=== PATIENT | male | born 1960 | race Caucasian/White ===

== ENCOUNTER 2023-02-09 21:43 | Inpatient (IN) | payer MEDICARE, SELFPAY ==
[2023-02-09] VITALS (7 sets, daily range): BP systolic 128; BP diastolic 71; PULSE 106–116; RESP 20–24; TEMP 36.7–37.2; O2SAT 93–95
--- NOTE | ~2023-02-09 | XR_ITS ---
XR chest 2V 02/09/2023 23:17 Indication: Cough and shortness of breath Procedure: 2 view chest Comparison: 10/28/2006 Findings: There is chronic granulomatous disease. Heart size normal. Mediastinal contour stable. No f ocal air space disease, pulmonary edema, pleural effusion or suspected pneumothorax. Impression: 1: No acute cardiopulmonary disease. Reviewed, dictated and finalized at location A. Impression: 1: No acute cardiopulmonary disease.
--- NOTE | ~2023-02-09 | CT_ITS ---
EXAMINATION: CT brain wo con DATE: 02/10/2023 00:55 INDICATION: Status post fall. Syncope. TECHNIQUE: Computed tomography (CT) of the head was performed without intravenous contrast. The dose- length product was 605.33 mGy-cm. Automated exposure control and iterative reconstruction technique w ere employed. COMPARISON: CT dated 10/28/2006 FINDINGS: Mild generalized atrophy. Focal left frontal scalp hematoma. There are scattered mild periv entricular and subcortical white matter changes, most likely related to small vessel ischemic disease (microangiopathy). No acute intracranial hemorrhage, infarction, mass or mass effect. No ventriculom egaly or midline shift. There is mucosal thickening of the maxillary, ethmoid, frontal and sphenoid s inuses. Mastoids are pneumatized. Chronic fracture left lamina papyracea. IMPRESSION: 1. No acute intracranial abnormality. 2: Chronic sinus disease. Reviewed, dictated and finalized at location A.
--- NOTE | 2023-02-09 21:54 | ED.SYNCOPE ---
HPI - Syncope General Chief Complaint: Syncope Stated Complaint: syncope Time Seen by Provider: 02/09/23 21:47 History of Present Illness HPI narrative: Patient is a 63-year-old male presenting with syncope. Patient states that for the last week he has had a productive cough associated with shortness of breath and intermittent chest pressure. States the chest pressure is random. Not exertional. He was seen in urgent care couple of days ago and started on steroids, antibiotics, inhaler. States that it has not really helped. States that he has had episodes of passing out for the last 6 months. He is supposed to see neurology but he has not yet received a call from them. States that tonight he had a coughing fit and then he passed out so his called an ambulance. He denies headaches, fevers, numbness or weakness, abdominal pain, vomiting, diarrhea, dysuria, leg swelling. Related Data Home Medications Medication Instructions Recorded Confirmed albuterol sulfate 90 mcg/actuation 2 inh inhalation Q4H PRN Wheezing 02/10/23 02/10/23 aerosol inhaler benzonatate 100 mg capsule 100 mg PO TID 02/10/23 02/10/23 celecoxib 200 mg capsule 200 mg PO DAILY 02/10/23 02/10/23 duloxetine 30 mg capsule,delayed 30 mg PO DAILY 02/10/23 02/10/23 release ezetimibe 10 mg tablet 10 mg PO DAILY 02/10/23 02/10/23 lansoprazole 30 mg capsule,delayed 30 mg PO DAILY 02/10/23 02/10/23 release lisinopril 5 mg tablet 5 mg PO DAILY 02/10/23 02/10/23 metoprolol tartrate 25 mg tablet 12.5 mg PO BID 02/10/23 02/10/23 prednisone 20 mg tablet 40 mg PO DAILY 02/10/23 02/10/23 rosuvastatin 40 mg tablet 40 mg PO HS 02/10/23 02/10/23 Allergies Allergy/AdvReac Type Severity Reaction Status Date / Time Penicillins Allergy Unknown Verified 07/04/21 15:40 Review of Systems Review of Systems: All systems reviewed & are unremarkable except as noted in HPI and below PMFSH Past Medical History Medical History COPD (chronic obstructive pulmonary disease) Nicotine dependence, cigarettes, with other nicotine-induced disorders Personal history of noncompliance with medical treatment and regimen Recurrent syncope Tobacco abuse counseling Family History Family History Mother Family history of arthritis Social History Social History Smoking packs per day: 0.5 Smoking cigarettes per day: 10.0 Smoking status: Light tobacco smoker Second hand tobacco smoke exposure: No Alcohol intake: current Substance use: former Substance use type: marijuana Lack of Transportation: No Lack of Food: Never True Current Housing: I Have Housing Concerned About Future Housing: No Difficulty Paying Gas/Electric Bills: No Difficulty Paying for Meds: No Currently Unemployed: No Education: Trade/Vocational Certificate Difficulty w/ Childcare or Family Care: No Spiritual care concerns: No Exam Narrative: GENERAL: Well-appearing and in no acute distress. Pleasant and cooperative HEAD: Normocephalic, atraumatic. EYES: PERRLA and EOMI. ENT: Grossly unremarkable NECK: Supple. CHEST: No respiratory distress, scattered wheezing; + coughing during exam HEART: Tachycardic, regular rhythm ABDOMEN: Soft, nontender, nondistended EXTREMITIES: Normal range of motion. No edema. SKIN: Warm, dry, no rash. NEURO: No focal deficits. Alert and oriented x3. PSYCH: Normal mood and affect. Course Vital Signs Vital signs: Vital Signs Pulse Rate 114 H 02/09/23 21:45 Respiratory Rate 20 02/09/23 21:45 Blood Pressure 128/71 02/09/23 21:45 Pulse Oximetry 93 02/09/23 21:45 Oxygen Delivery Room Air 02/09/23 21:45 Temperature 96.1 F L 02/12/23 07:33 Pulse Rate 81 02/12/23 09:45 Respiratory Rate 20 02/12/23 07:33 Blood Pressure 147/99 H 02/12/23 07:33 Pulse O
[2023-02-09 22:22] LABS: Basophils Percent Auto 0.6 % (0.2-1.2); Hemoglobin 13.7 g/dL (14.0-18.0); Immature Granulocyte Absolute 0.06 K/mm3 (0.00-0.031); Immature Granulocyte Percent A 0.8 % (0-0.5); Lymphocytes Percent Auto 16.5 % (18.3-44.2); Mean Corpuscular HGB Conc 33.4 g/dl (32-36); Mean Corpuscular Hemoglobin 32.1 pg (26-34); Mean Platelet Volume 10.6 fl (7.4-10.4); Monocytes Absolute Auto 0.5 K/mm3 (0.1-0.6); Neutrophils Absolute Auto 5.5 K/mm3 (1.3-6.7); Neutrophils Percent Auto 75.1 % (45.5-73.1); Platelet Count Result 175 k/mm3 (150-375); Red Blood Count 4.27 M/mm3 (4.6-6.20); Red Cell Distribution Width 13.2 % (11.5-14.5); White Blood Count 7.3 K/mm3 (4.5-10.0)
[2023-02-09 22:33] LABS: Alanine Aminotransferase 26 U/L (6-50); Albumin Level 4.1 g/dL (3.5-5.1); Alkaline Phosphatase 75 U/L (38-126); Anion Gap 13 mmol/L (8-16); Aspartate Amino Transferase 42 U/L (17-59); Bilirubin,Total 0.4 mg/dL (0.2-1.3); Blood Urea Nitrogen 20 mg/dL (9-20); Calcium 8.8 mg/dL (8.4-10.2); Carbon Dioxide 20 mmol/L (22-30); Chloride 97 mmol/L (98-107); Estimated CRCL calculation 90 ml/min; Estimated Glomerular Filt Rate > 60; Glucose 189 mg/dL (65-110); Sodium 130 mmol/L (137-145)
--- NOTE | 2023-02-09 23:19 | PC.NURSE ---
pt care and report given to ADRIEN Mei. all questions answered.
[2023-02-09 23:35] LABS: INR 0.9; Prothrombin Time 12.9 Seconds (11.1-14.7)
[2023-02-09 23:36] LABS: Lipase 161 U/L (23-300)
[2023-02-09 23:36] LABS: Partial Thromboplastin Time 31.4 SECONDS (22.3-36.8)
[2023-02-09] MEDS: SODIUM CHLORIDE 0.9% IV 1,000 ML 999 ML IV CONT (23:36)
[2023-02-09 23:49] LABS: Troponin I < 0.012 ng/mL (0.000-0.034)
[2023-02-10] VITALS (26 sets, daily range): BP systolic 123–154; BP diastolic 57–77; PULSE 75–114; RESP 16–26; TEMP 36.7–37.2; O2SAT 91–97; BMI 34.2
--- NOTE | 2023-02-10 | ECG_ITS ---
Measurements Intervals [place] Rate: 110 P: [place]: 0 QRS: 52 QRSD: 91 T: 66 QT: 328 QTc: 445 Interpretive Statements SINUS TACHYCARDIA ABNORMAL ECG NO PREVIOUS ECG AVAILABLE FOR COMPARISON Electronically Signed On 02-10-2023 7:09:44 CDT by Jatin Kinney D.O.
[2023-02-10] MEDS: IPRATROPIUM BR 0.02% INH SOLN 0.5 MG/2.5 ML VIAL INHALATION (00:21)
[2023-02-10] MEDS: ALBUTEROL SULFATE NEB 2.5 MG/3 ML INH 5 MG INHALATION (00:21)
[2023-02-10 00:55] LABS: Influenza A QL RT-PCR Negative (Negative); Influenza B QL RT-PCR Negative (Negative); SARS-CoV-2 RNA PCR Negative (Negative)
[2023-02-10] MEDS: SODIUM CHLORIDE 0.9% IV 1,000 ML 999 ML IV CONT (01:35)
[2023-02-10] MEDS: methylPREDNISolone SOD SUCC 125 MG VIAL IV PUSH (01:35)
--- NOTE | 2023-02-10 01:45 | PM.IMHP ---
H&P: HPI History of Present Illness Date/Time: 02/10/23 01:45 Chief Complaint: Patient was brought to the ER for evaluation by EMS with complaints of recurrent syncopal episodes and productive cough Narrative: 63 years old white male is complaining of multiple episodes of syncope for the last 6 months. He was worked up with a carotid ultrasound which was negative. He was advised to go and see a neurologist which he has not done yet. He is complaining of productive cough for last 5 days with shortness of breath which is slowly worsening. Today he had intermittent chest pressure as well, Intensity 2 to 3/10, no radiation and no association with exertional activities. He was seen in urgent care couple days ago and was started on steroids, antibiotics and inhaler which has not really helped him. He had 2 episodes of passing out at homein the last couple of days. In one episode, he fell on the face and had facial bruising. He is a very stubborn anastasiya and did not want to come to the ER until called EMS who brought him here. Workup was done which showed pneumonia. He is a chronic daily smoker. He has been started on breathing treatments, IV antibiotics and is being admitted for close monitoring and further workup for his syncopal episodes. Review of Systems Review of Systems: He denies any loss of consciousness, abdominal pain, nausea vomiting or blurred vision All systems reviewed & are unremarkable except as noted in HPI and below PMFSH Past Medical History Medical History (Updated 02/10/23 @ 01:57 by Jonathon Liu MD) COPD (chronic obstructive pulmonary disease) Nicotine dependence, cigarettes, with other nicotine-induced disorders Personal history of noncompliance with medical treatment and regimen Recurrent syncope Tobacco abuse counseling Family History Family History Mother Family history of arthritis Social History Social History Smoking status: Current every day smoker Alcohol intake: current Meds Home Medications and Allergies Allergies Allergy/AdvReac Type Severity Reaction Status Date / Time Penicillins Allergy Unknown Verified 07/04/21 15:40 Vital Signs Vital Signs - 24 hr 02/09/23 21:45 02/09/23 21:45 02/09/23 21:56 Temperature 36.7 C Pulse Rate 114 H 116 H Respiratory Rate 20 Blood Pressure 128/71 Pulse Oximetry 93 93 Oxygen Delivery Room Air Room Air 02/09/23 22:09 02/10/23 00:24 Temperature 37.2 C Pulse Rate 114 H 104 H Respiratory Rate 20 17 Blood Pressure Pulse Oximetry 93 Oxygen Delivery Exam Narrative: PHYSICAL EXAMINATION: Vital signs: Please see the chart General physical exam: obese male lying in bed in the ER, appears tired and fatigued, well-nourished Head/eyes: Atraumatic, EOMI, PERRLA ENT: Moist mucous membranes, nasal passages clear Neck: Supple, full range of motion, trachea midline CVS: S1 + S2, regular rate and rhythm, no murmurs Respiratory: Bilaterally decreased air entry in both lung salazar, mild B/L crackles, + right lower lobe ronchi Abdomen: Soft, non-tender, bowel sounds +ve, no organomegaly Extremities: No clubbing, no cyanosis, no edema, no calf tenderness Musculoskeletal: Moves all, adequate range of motion, no muscle spasms Skin: Warm, dry, no jaundice, no cyanosis Neurological: Awake, alert, oriented x 3, cranial nerves II-XII intact, no focal neurological deficits Psychiatric: Normal mood, non suicidal H&P: Results Labs Labs: Short CBC 02/09/23 Range/Units 22:06 WBC 7.3 (4.5-10.0) K/mm3 Hgb 13.7 L (14.0-18.0) g/dL Hct 41.0 L (42.0-52.0) % Plt Count 175 (150-375) k/mm3 BMP 02/09/23 22:06 Sodium 130 L Potassium 4.0 Chloride 97 L Carbon Dioxide 20 L BUN 20 Creatinine 0.90 Glucose 189 H Calcium 8.8 Cardiac Enzymes 02/09/23 Range/Units 22:06 Troponin I < 0.
[2023-02-10] MEDS: cefTRIAXone 2 GM/NS 100 ML 2 GM/100 ML BAG IVPB (01:53)
[2023-02-10 02:26] LABS: Troponin I < 0.012 ng/mL (0.000-0.034)
[2023-02-10] MEDS: AZITHROMYCIN 500 MG/NS 250 ML 500 MG/250 ML BAG 250 MG IVPB (02:46)
--- NOTE | 2023-02-10 03:08 | ADMGEN ---
This patient, Dann Garcia, was admitted to 3 [facility] Surg Room 300-01. Patient/family oriented to hospital policies and general routines including ID bracelet, bed and alarms, visiting hours, pain management, procedures, bathroom and other care routines, personal items, smoking policy, room service/diet, and visiting hours. Information on how to activate the Rapid Response Team has been discussed. Patient/Family are encouraged to report perceived risks to care and to ask questions if they do not understand what they are told or what they should do.
[2023-02-10] MEDS: SODIUM CHLORIDE 0.9% IV 1,000 ML 100 ML IV CONT (03:33)
[2023-02-10] MEDS: methylPREDNISolone SOD SUCC 125 MG VIAL 60 MG IV PUSH ×3 (05:06→21:53)
[2023-02-10 06:37] LABS: Basophils Percent Auto 0.4 % (0.2-1.2); Hematocrit 43.1 % (42.0-52.0); Hemoglobin 14.1 g/dL (14.0-18.0); Immature Granulocyte Absolute 0.14 K/mm3 (0.00-0.031); Immature Granulocyte Percent A 2.5 % (0-0.5); Lymphocytes Absolute Auto 0.89 K/mm3 (0.9-3.2); Lymphocytes Percent Auto 16.1 % (18.3-44.2); Mean Corpuscular HGB Conc 32.7 g/dl (32-36); Mean Corpuscular Hemoglobin 31.7 pg (26-34); Mean Corpuscular Volume 96.9 fl (80-100); Monocytes Absolute Auto 0.2 K/mm3 (0.1-0.6); Monocytes Percent Auto 3.6 % (2.6-8.5); Neutrophils Absolute Auto 4.3 K/mm3 (1.3-6.7); Neutrophils Percent Auto 77.4 % (45.5-73.1); Platelet Count Result 156 k/mm3 (150-375); Red Blood Count 4.45 M/mm3 (4.6-6.20); Red Cell Distribution Width 13.2 % (11.5-14.5); White Blood Count 5.5 K/mm3 (4.5-10.0)
[2023-02-10 06:48] LABS: Anion Gap 8 mmol/L (8-16); Blood Urea Nitrogen 17 mg/dL (9-20); Calcium 8.7 mg/dL (8.4-10.2); Carbon Dioxide 23 mmol/L (22-30); Chloride 104 mmol/L (98-107); Estimated CRCL calculation 134 ml/min; Estimated Glomerular Filt Rate > 60; Glucose 210 mg/dL (65-110); Magnesium 1.9 mg/dL (1.6-2.3); Phosphorus 2.5 mg/dL (2.5-4.5); Potassium 4.2 mmol/L (3.4-5.0); Sodium 135 mmol/L (137-145)
[2023-02-10] MEDS: BENZONATATE 100 MG CAPSULE PO ×3 (09:01→16:26)
[2023-02-10] MEDS: CELECOXIB 200 MG CAPSULE PO (09:02)
[2023-02-10] MEDS: DOXYCYCLINE HYCLATE 100 MG TABLET PO ×2 (09:02→20:14)
[2023-02-10] MEDS: lisinopriL 5 MG TABLET PO (09:02)
[2023-02-10] MEDS: predniSONE 20 MG TABLET 40 MG PO (09:02)
[2023-02-10] MEDS: METOPROLOL TARTRATE 12.5 MG TABLET PO ×2 (09:02→16:26)
[2023-02-10] MEDS: EZETIMIBE 10 MG TABLET PO (09:03)
[2023-02-10] MEDS: DULoxetine HCL 30 MG CAPSULE.DR PO (09:03)
[2023-02-10] MEDS: LANSOPRAZOLE ORAL SUSP 30 MG/10 ML ORAL.SUSP PO (09:04)
[2023-02-10] MEDS: ROSUVASTATIN 10 MG TABLET 40 MG PO (20:14)
[2023-02-10] MEDS: LORazepam INJ (*CRX) 2 MG/ML VIAL 1 MG IV PUSH (20:14)
[2023-02-10] MEDS: ACETAMINOPHEN 325 MG TABLET 650 MG PO (20:14)
[2023-02-11] VITALS (11 sets, daily range): BP systolic 135–157; BP diastolic 75–90; PULSE 83–105; RESP 18; TEMP 36.5–36.8; O2SAT 94–98
[2023-02-11 00:49] LABS: Glucose Point of Care 204 mg/dl (65-105)
[2023-02-11 05:43] LABS: Glucose Point of Care 224 mg/dl (65-105)
[2023-02-11] MEDS: methylPREDNISolone SOD SUCC 125 MG VIAL 60 MG IV PUSH ×3 (05:54→21:23)
--- NOTE | 2023-02-11 06:00 | ECHO_ITS ---
Patient Info Name: Dann Garcia Age: 63 years : 1960 Gender: Male Ht: 70 in Wt: 238 lbs BSA: 2.35 m2 HR: 81 bpm BP: 115 / 66 mmHg Heart Rhythm: Sinus Rhythm Technical Quality: Fair Exam Date: 02/11/2023 11:33 AM Exam Location: [facility] Pulmonary Exam Room: 300 Patient Status: Inpatient Admit Date: 02/10/2023 Staff Ordering Physician: Diana Conte MD Research Instrumentation Technician: Indira Carranza RDCS Attending Provider: Jonathon Liu MD Referring Physician: Hector GONZALEZ Exam Type: CA echo dop color flow w con Study Info Indications - syncope Complete two-dimensional, color flow and Doppler transthoracic echocardiogram is performed with contrast to opacify the left ventricle and to improve the deliniation of the left ventricle endocardial borders. Contrast/Agitated Saline Contrast/Ag. Saline: Definity Amount: 2.00 ml Administered By: Indira Carranza [facility] [[email or web address]] Existing IV Access: Yes IV Access Condition: patent with no signs of infiltration Summary 1. Technically difficult study with limited views. Definity contrast administered. 2. Left ventricular chamber dimension is normal. 3. Left ventricular systolic function is normal, estimated at 65-70%. 4. There is mildly increased left ventricular wall thickness. 5. The left ventricular diastolic function is grade I diastolic dysfunction. 6. Atrial septal aneurysmal motion. 7. There is no aortic valve stenosis. 8. There is trace tricuspid valve regurgitation. 9. No pulmonary hypertension, estimated pulmonary arterial systolic pressure is 30 mmHg. Left Ventricle Left ventricular chamber dimension is normal. Left ventricular systolic function is normal, estimated at 65-70%. There is mildly increased left ventricular wall thickness. The left ventricular diastolic function is grade I diastolic dysfunction. Technically difficult study with limited views. Definity contrast administered. Right Ventricle Right ventricular chamber dimension is normal. Right ventricular systolic function is normal. Left Atria Left atrial chamber dimension is normal. Right Atria Right atrial chamber dimension is mildly enlarged. Atrial Septum Atrial septal aneurysmal motion. Aortic Valve The aortic valve is not well visualized. There is no aortic valve stenosis. There is no aortic valve regurgitation. Pulmonic Valve The pulmonic valve is not well visualized. Mitral Valve The mitral valve has normal leaflets. There is no mitral valve regurgitation. The mitral valve annulus is mildly calcified. Tricuspid Valve The tricuspid valve leaflets are normal. There is trace tricuspid valve regurgitation. No pulmonary hypertension, estimated pulmonary arterial systolic pressure is 30 mmHg. Pericardium/Pleural The pericardium appears epicardial fat pad. There is no pericardial effusion. Inferior Vena Cava Normal inferior vena cava with >50% collapse upon inspiration consistent with normal right atrial pressure, 5 mmHg. Aorta The aortic root size at the sinus of Valsalva is normal. There is mild aortic atherosclerosis. Left Ventricular Outflow Tract Name Value Normal LVOT 2D LVOT Diameter 2.12 cm LVOT Doppler
[2023-02-11 06:50] LABS: Basophils Percent Auto 0.4 % (0.2-1.2); Hematocrit 41.8 % (42.0-52.0); Hemoglobin 14.2 g/dL (14.0-18.0); Immature Granulocyte Percent A 1.8 % (0-0.5); Lymphocytes Absolute Auto 1.39 K/mm3 (0.9-3.2); Lymphocytes Percent Auto 12.6 % (18.3-44.2); Mean Corpuscular Hemoglobin 32.1 pg (26-34); Mean Corpuscular Volume 94.4 fl (80-100); Mean Platelet Volume 10.2 fl (7.4-10.4); Monocytes Absolute Auto 0.7 K/mm3 (0.1-0.6); Monocytes Percent Auto 6.2 % (2.6-8.5); Neutrophils Absolute Auto 8.7 K/mm3 (1.3-6.7); Platelet Count Result 179 k/mm3 (150-375); Red Blood Count 4.43 M/mm3 (4.6-6.20); Red Cell Distribution Width 12.8 % (11.5-14.5); White Blood Count 11.1 K/mm3 (4.5-10.0)
[2023-02-11 07:07] LABS: Anion Gap 7 mmol/L (8-16); Blood Urea Nitrogen 18 mg/dL (9-20); Calcium 8.8 mg/dL (8.4-10.2); Carbon Dioxide 30 mmol/L (22-30); Chloride 98 mmol/L (98-107); Estimated CRCL calculation 134 ml/min; Estimated Glomerular Filt Rate > 60; Glucose 207 mg/dL (65-110); Magnesium 1.8 mg/dL (1.6-2.3); Phosphorus 3.4 mg/dL (2.5-4.5); Potassium 3.7 mmol/L (3.4-5.0); Sodium 135 mmol/L (137-145)
[2023-02-11] MEDS: predniSONE 20 MG TABLET 40 MG PO (08:51)
[2023-02-11] MEDS: chlordiazePOXIDE (*CRX) 25 MG CAPSULE PO (08:51)
[2023-02-11] MEDS: lisinopriL 5 MG TABLET PO (08:51)
[2023-02-11] MEDS: METOPROLOL TARTRATE 12.5 MG TABLET PO ×2 (08:51→16:52)
[2023-02-11] MEDS: LANSOPRAZOLE ORAL SUSP 30 MG/10 ML ORAL.SUSP PO (08:51)
[2023-02-11] MEDS: CELECOXIB 200 MG CAPSULE PO (08:51)
[2023-02-11] MEDS: BENZONATATE 100 MG CAPSULE PO ×3 (08:51→16:47)
[2023-02-11] MEDS: DULoxetine HCL 30 MG CAPSULE.DR PO (08:51)
[2023-02-11] MEDS: DOXYCYCLINE HYCLATE 100 MG TABLET PO ×2 (08:51→20:11)
[2023-02-11] MEDS: EZETIMIBE 10 MG TABLET PO (08:51)
[2023-02-11] MEDS: AZITHROMYCIN 500 MG/NS 250 ML 500 MG/250 ML BAG 250 MG IVPB (08:53)
[2023-02-11 11:25] LABS: Glucose Point of Care 392 mg/dl (65-105)
--- NOTE | 2023-02-11 11:56 | PM.IMPN ---
Progress Note: A&P Assessment and Plan (1) Nicotine dependence, cigarettes, with other nicotine-induced disorders: Code(s): F17.218 - Nicotine dependence, cigarettes, with other nicotine-induced disorders Status: Acute (2) Tobacco abuse counseling: Code(s): Z71.6 - Tobacco abuse counseling Status: Acute (3) Personal history of noncompliance with medical treatment and regimen: Code(s): Z91.199 - Patient's noncompliance with other medical treatment and regimen due to unspecified reason Status: Acute (4) COPD (chronic obstructive pulmonary disease): Code(s): J44.9 - Chronic obstructive pulmonary disease, unspecified Status: Acute (5) Pneumonia: Code(s): J18.9 - Pneumonia, unspecified organism Status: Acute (6) Recurrent syncope: Code(s): R55 - Syncope and collapse Status: Acute Plan Admit patient to a medical unit under full inpatient status Oxygen via nasal cannula ordered to keep O2 sats more than 92% Solu-Medrol 125 mg IV x 1 dose given in the ER Solu-Medrol 60 Mg IV q8 hrs started on the floor to be tapered as per clinical response Chest x-ray was done which showed finding consistent with right lower lobe pneumonia Patient given IV Rocephin and azithromycin in the ED which will continue on the floor Sputum cultures ordered Follow-up on blood and sputum cultures DuoNeb breathing treatments ordered as needed He has recurrent syncopal episode for the last 6 months, which are getting worse Continuous cardiac tele-monitoring Monitor cardiac enzymes ?3 2-D echo ordered in the morning to evaluate cardiac structure and function Patient claims he had bilateral carotid artery duplex in an outside facility which has been normal Release bilateral carotid arterial duplex results Heart healthy diet Cardiology consultation in am for evaluation and further treatment recommendations regarding his recurrent syncopal episodes Ambulate on the floor with assistance DC planning once patient is medically stable, breathing is back to baseline and his syncope workup is complete Dependence on nicotine from cigarettes: Tobacco abuse counseling: Patient smokes cigarettes on a chronic basis. Strictly advised patient to cut down on or quit smoking. Nicotine patch ordered. ~5 minutes spent on tobacco cessation counseling with the patient. Websites - http://smokefree.gov & http://www.quitnet.com ? Quitlines - 9-540-OIBL-NOW ( ) ? Smokefree Apps - AdsNative [place]alle ? Text Messages - SmokefreeTXT ([place] [id number]) Personal history of noncompliance with medical treatment and regimen: STRICTLY advised patient to be compliant with meds and medical recommendations. Advised patient to get established with a PCP upon discharge, take care of meds, diet and bring patient's life back on track. ? Patient seen and examined at bedside ? Collaborated with patient's nurse at the bedside in detail and addressed all concerns ? Labs, electrolytes, radiology, investigations and test results reviewed ? ED/Consult/Nursing/Ancilliary notes on the chart reviewed and appreciated ? Spoke with patient/family at the bedside and answered all the questions that they had Continue with home meds. Monitor patient closely while admitted. Patient needs close follow up with PCP/specialists as an outpatient to address chronic medical issues. Repeat labs in a.m. Electrolyte replacement as per protocol. Patient will be monitored very closely on the floor. Further recommendations as per the hospital course. Patient's medical management will be taken over by our hospitalist team in a.m. Subjective Date/time seen: 02/11/23 11:56 Interval history: still complaining of cough Exam Narrative: PHYSICAL EXAMINATION: Vital signs: Please see the chart General physical exam: obese male lying in bed in the ER, appears tired and fatigued, well-nourished Head/eyes: Atraumatic, EOMI, PERRLA
[2023-02-11] MEDS: PERFLUTREN LIPID MICROSPHERES 1.5 ML VIAL DILUTED TO 10 ML TOTAL VOLUME IV PUSH (12:10)
--- NOTE | 2023-02-11 12:28 | IVDEFINITY ---
Prior to administration of IV Definity the patient was educated on the risks and benefits of the imaging enhancing agent including potential adverse side effects. The patient verbalized understanding. Allergies were verified. No exclusion criteria were identified and at least one of the following inclusion criteria were met: 1) physician request, 2) patient technically difficult to image (per the [place] [employer] Echocardi[employer] guidelines of two or more segments not discernable within the apical view), or 3) questionable left ventricular function. ?
[2023-02-11] MEDS: INSULIN ASPART (*BKC) 100 UNITS/ML SUB-Q ×2 (12:29→18:06)
[2023-02-11] MEDS: CODEINE SULFATE (*CRX) 30 MG TABLET PO (12:32)
--- NOTE | 2023-02-11 13:45 | PM.CNCAR ---
Assessment and Plan Assessment and plan (1) Tussive syncope: Code(s): R55 - Syncope and collapse; R05.4 - Cough syncope Status: Acute Assessment and Plan: Patient presents with recurrent episodes of loss of consciousness in setting of intense paroxysm of coughing consistent with tussive syncope. Patient also reports extended history of positional dizziness and near syncope and states he was previously told he had orthostatic hypotension. He was evaluated previously by division operations manager at [facility] and workup at that time he states was otherwise unrevealing. In fact, he states he had never passed out until recently and only with intense coughing. Near syncopal episodes and or severe dizziness were associated with either position change rising from seated position or bending over working outside in the yd. He notes occasional associated shortness of breath but no chest pain or palpitations per se. Patient also as he had episodes where it felt like he might pass out with intense coughing in lying in bed in hospital. Telemetry reveals significant baseline artifact but underlying sinus rhythm without prolonged pauses, high-grade AV blocks identified thus far. We discussed the issues surrounding tussive syncope, general treatment plan, further evaluation and associated risks. We discussed the general consensus mechanism including vasodepressor/cardioinhibitory response I can be seen with intense cough. Patient clinically fits a common pattern overweight middle-aged male with larger body habitus, probable underlying COPD, with intense cough. We discussed the primary goal is to suppress his cough untreated underlying contributors. However, it would be important to exclude other contributions such is pathologic pauses, high-grade AV block or symptomatic bradycardia as underlying predisposition. Therefore, I have recommended 30 day monitoring tech upon discharge for further clarification in this regard. 2D echocardiogram to assess LV function, valve pathology pulmonary pressures. We also need to check orthostatic vital signs. In addition, precautions ambulation, rising slowly from seated position, lower extremity compression stockings, abdominal binder may also be beneficial particularly of orthostasis is identified. If significant symptomatic orthostatic hypotension as identified further medication adjustment be warranted which may include midodrine. However, I do not feel this is likely warranted given the clinical circumstances. All questions answered to his satisfaction. Patient verbalized understanding and agreed with plan of care. Echocardiogram personally reviewed. Preserved LV function no significant valve pathology or clinical evidence for outflow tract obstruction as explanation for contribution to patient's presentation. (2) Pneumonia: Qualifiers: Pneumonia type: due to unspecified organism Code(s): J18.9 - Pneumonia, unspecified organism Status: Acute Assessment and Plan: Patient is being treated for community-acquired pneumonia with IV ceftriaxone and azithromycin. Patient is clinically improving somewhat, slight decrease in cough. Continue supportive care with cough suppressants, steroids and bronchodilator therapy as warranted. Will defer further management to primary service. Clearly, this is contribute to increasing risk for cough as well as the associated intensity resulting in tussive syncope as above. We also discussed the risk of ongoing cough associated syncope with tobacco use and the need to quit. (3) Hypertension: Code(s): I10 - Essential (primary) hypertension Status: Acute Assessment and Plan: BP stable, mildly hypertensive at presentation. Continue lisinopril 5 mg daily, metoprolol tartrate 12.5 mg twice daily. Check orthostatic vital signs lying, sitting, standing in addition to heart rate response. Continue to monitor. (4) COPD (chronic o
[2023-02-11 17:55] LABS: Glucose Point of Care 231 mg/dl (65-105)
[2023-02-11] MEDS: ROSUVASTATIN 10 MG TABLET 40 MG PO (20:12)
[2023-02-11] MEDS: diphenhydrAMINE HCl CAP 25 MG CAPSULE PO (21:23)
[2023-02-11] MEDS: ACETAMINOPHEN 325 MG TABLET PO (21:23)
[2023-02-12] VITALS: BP 129/79; PULSE 86; RESP 18; TEMP 36.7; O2SAT 96
[2023-02-12 04:00] VITALS: BP 159/97; PULSE 81; PULSE 91; RESP 18; TEMP 36.8; O2SAT 100
[2023-02-12] MEDS: methylPREDNISolone SOD SUCC 125 MG VIAL 60 MG IV PUSH (05:36)
[2023-02-12 06:19] LABS: Basophils Absolute Auto 0.1 K/mm3 (0.0-0.1); Basophils Percent Auto 0.6 % (0.2-1.2); Hematocrit 48.9 % (42.0-52.0); Immature Granulocyte Absolute 0.57 K/mm3 (0.00-0.031); Immature Granulocyte Percent A 5.3 % (0-0.5); Lymphocytes Absolute Auto 1.81 K/mm3 (0.9-3.2); Lymphocytes Percent Auto 16.9 % (18.3-44.2); Mean Corpuscular HGB Conc 32.7 g/dl (32-36); Mean Corpuscular Hemoglobin 31.8 pg (26-34); Mean Corpuscular Volume 97.2 fl (80-100); Mean Platelet Volume 9.9 fl (7.4-10.4); Monocytes Absolute Auto 0.7 K/mm3 (0.1-0.6); Monocytes Percent Auto 6.2 % (2.6-8.5); Neutrophils Absolute Auto 7.6 K/mm3 (1.3-6.7); Platelet Count Result 200 k/mm3 (150-375); Red Blood Count 5.03 M/mm3 (4.6-6.20); Red Cell Distribution Width 13.1 % (11.5-14.5); White Blood Count 10.7 K/mm3 (4.5-10.0)
[2023-02-12 06:40] LABS: Anion Gap 5 mmol/L (8-16); Blood Urea Nitrogen 19 mg/dL (9-20); Calcium 9.4 mg/dL (8.4-10.2); Carbon Dioxide 37 mmol/L (22-30); Chloride 96 mmol/L (98-107); Estimated CRCL calculation 116 ml/min; Estimated Glomerular Filt Rate > 60; Glucose 201 mg/dL (65-110); Magnesium 2.3 mg/dL (1.6-2.3); Phosphorus 4.5 mg/dL (2.5-4.5); Potassium 4.3 mmol/L (3.4-5.0); Sodium 138 mmol/L (137-145)
[2023-02-12 07:33] VITALS: BP 147/99; PULSE 85; RESP 20; TEMP 35.6; O2SAT 97
[2023-02-12] MEDS: ENOXAPARIN 40 MG/0.4 ML SYRINGE SUB-Q (09:31)
[2023-02-12] MEDS: predniSONE 20 MG TABLET 40 MG PO (09:33)
[2023-02-12] MEDS: EZETIMIBE 10 MG TABLET PO (09:33)
[2023-02-12] MEDS: BENZONATATE 100 MG CAPSULE PO (09:33)
[2023-02-12] MEDS: NEOMYCIN/POLYMYXIN/BACITRACIN OINTMENT 15 GM TUBE 1 APPLIC TOPICAL (09:33)
[2023-02-12] MEDS: DULoxetine HCL 30 MG CAPSULE.DR PO (09:33)
[2023-02-12 09:34] VITALS: PULSE 84
[2023-02-12] MEDS: METOPROLOL TARTRATE 12.5 MG TABLET PO (09:34)
[2023-02-12] MEDS: lisinopriL 5 MG TABLET PO (09:34)
[2023-02-12] MEDS: CELECOXIB 200 MG CAPSULE PO (09:34)
[2023-02-12] MEDS: DOXYCYCLINE HYCLATE 100 MG TABLET PO (09:34)
[2023-02-12 09:45] VITALS: PULSE 81
--- NOTE | 2023-02-12 10:45 | PM.DS ---
DS: Admitting Diagnosis Discharge Date February 12, 2023 Admitting Diagnosis COPD, cough DS: Discharge Diagnosis Discharge Diagnosis (1) Nicotine dependence, cigarettes, with other nicotine-induced disorders: Code(s): F17.218 - Nicotine dependence, cigarettes, with other nicotine-induced disorders Status: Acute (2) Tobacco abuse counseling: Code(s): Z71.6 - Tobacco abuse counseling Status: Acute (3) Personal history of noncompliance with medical treatment and regimen: Code(s): Z91.199 - Patient's noncompliance with other medical treatment and regimen due to unspecified reason Status: Acute (4) COPD (chronic obstructive pulmonary disease): Code(s): J44.9 - Chronic obstructive pulmonary disease, unspecified Status: Acute (5) Pneumonia: Qualifiers: Pneumonia type: due to unspecified organism Code(s): J18.9 - Pneumonia, unspecified organism Status: Acute (6) Recurrent syncope: Code(s): R55 - Syncope and collapse Status: Acute DS: Summary Hospital Course Hospital Course: 63-year-old chronic smoking male came in with recurrent syncope secondary to coughing episodes. He was admitted for pneumonia and COPD exacerbation. After 2 or 3 days of treatment he did exceptionally well. He is off all oxygen and is breathing fine and not having any coughing episodes. No syncopal episodes. He is doing okay he will be discharged on antibiotics and steroids. He will need follow-up with his primary care physician. Workup for syncope was negative Time Spent with Patient Time attestation: Total time spent providing and/or coordinating discharge services: Exam Narrative: PHYSICAL EXAMINATION: Vital signs: Please see the chart General physical exam: obese male lying in bed in the ER, appears tired and fatigued, well-nourished Head/eyes: Atraumatic, EOMI, PERRLA ENT: Moist mucous membranes, nasal passages clear Neck: Supple, full range of motion, trachea midline CVS: S1 + S2, regular rate and rhythm, no murmurs Respiratory: Bilaterally decreased air entry in both lung salazar, mild B/L crackles, + right lower lobe ronchi Abdomen: Soft, non-tender, bowel sounds +ve, no organomegaly Extremities: No clubbing, no cyanosis, no edema, no calf tenderness Musculoskeletal: Moves all, adequate range of motion, no muscle spasms Skin: Warm, dry, no jaundice, no cyanosis Neurological: Awake, alert, oriented x 3, cranial nerves II-XII intact, no focal neurological deficits Psychiatric: Normal mood, non suicidal DS: Data Data Completed and Pending Labs on day of discharge: Labs from last 24 hours 02/12/23 02/11/23 02/11/23 05:42 17:52 11:20 WBC 10.7 H RBC 5.03 Hgb 16.0 Hct 48.9 MCV 97.2 MCH 31.8 MCHC 32.7 RDW 13.1 Plt Count 200 MPV 9.9 Immature Gran % (Auto) 5.3 H Neut % (Auto) 71.0 Lymph % (Auto) 16.9 L [place] % (Auto) 6.2 Eos % (Auto) 0.0 Baso % (Auto) 0.6 Lymph # (Auto) 1.81 [place] # (Auto) 0.7 H Eos # (Auto) 0.0 Baso # (Auto) 0.1 Abs Immat Gran (auto) 0.57 H Absolute Neuts (auto) 7.6 H Absolute Nucleated RBC 0.0 Nucleated RBC % 0.0 Sodium 138 Potassium 4.3 Chloride 96 L Carbon Dioxide 37 H Anion Gap 5 L BUN 19 Creatinine 0.70 Estim Creat Clear Calc 116 Estimated GFR > 60 Glucose 201 H POC Capillary Glucose 231 H 392 H Calcium 9.4 Phosphorus 4.5 Magnesium 2.3 Preliminary micro results at discharge 02/10/23 01:53 Blood Culture - Preliminary Blood Discharge Plan Discharge Attending physician on discharge: Dann Garcia Consulting providers: Rajat Colunga Discharging Clinician: Dann Garcia Patient Disposition: Home, Self-Care Activity: as tolerated Diet: as tolerated Patient Instructions: Antibiotic Form, How to Stop Smoking (DC) Stand Alone Forms: General Discharge In
== END 2023-02-12 12:10 | disposition home or self-care (01) | DRG 194 ==
LOC: ANHED 22:16 → ANH3MEDSUR 02-10 02:33
PROVIDERS: Admitting Provider Family Medicine; Emergency Provider Emergency Medicine; PCP Nurse Practitioner Family; Visit Provider Chiropractor
DX: J18.9 Pneumonia, unspecified organism (principal); J44.0 Chronic obstructive pulmonary disease with (acute) lower respiratory infection; J44.1 Chronic obstructive pulmonary disease with (acute) exacerbation; R55 Syncope and collapse; R05.4 Cough syncope; Z91.199 Patient's noncompliance with other medical treatment and regimen due to unspecified reason; F17.218 Nicotine dependence, cigarettes, with other nicotine-induced disorders; E66.9 Obesity, unspecified; Z68.34 Body mass index [BMI] 34.0-34.9, adult; G47.33 Obstructive sleep apnea (adult) (pediatric); E78.5 Hyperlipidemia, unspecified; Z20.822 Contact with and (suspected) exposure to COVID-19
CPT/HCPCS: 36415; 70450; 71046; 80048; 80053; 82948; 83690; 83735; 84100; 84484; 85025; 85610; 85730; 87040; 87636; 93005; 94640; 96360; 99285; A9270; C8929; J0456; J0696; J1650; J1815; J2060; J2930; J7030; J7512; Q9957

== ENCOUNTER 2024-01-17 07:33 | Outpatient (CLI) | payer MEDICARE, SELFPAY ==
--- NOTE | ~2024-01-17 | MR_ITS ---
EXAMINATION: MR lumbar spine wo/w con DATE: 01/17/2024 08:30 INDICATION: Bilateral lower limb weakness TECHNIQUE: Magnetic resonance imaging (MRI) of the lumbar spine was performed without and with 20 mL Multihance intravenous contrast. Sequences included sagittal T2-weighted FSE, sagittal T2-weighted FS FSE, and sagittal and axial T1-weighted FSE. Postcontrast sequences included axial T2-weighted FSE, sagittal T1-weighted FSE, and axial and sagittal T1-weighted FS FSE. COMPARISON: None FINDINGS: 3 mm retrolisthesis L2 on L3 and 4 mm retrolisthesis L5 on S1. Chronic anterior wedging with 20% ante rior vertebral body height loss at T12-L2.Severe disc height loss with fibrofatty degenerative endpla te changes at L5-S1. Marrow signal is otherwise normal. Mild disc height loss at T11-T12 through L4-L 5. There are annular fissures at L1-L2 through L5-S1. The conus medullaris terminates at L1. There i s normal signal in the caudal spinal cord. There is mild synovial enhancement at the bilateral L3-L4 and L4-L5 facet joints no other abnormally enhancing lesions identified. Paravertebral soft tissues a re unremarkable. The following disc levels are specifically discussed: T12-L1: The disc does not extend beyond the endplate margin. There is mild bilateral facet joint oste oarthritis. There is no neural foraminal stenosis. There is no central canal stenosis. L1-L2: Small central disc protrusion. There is mild to moderate bilateral facet joint osteoarthritis. There is mild left and minimal right neural foraminal stenosis. There is minimal central canal steno sis. L2-L3: Disc is bulging. There is mild left and mild to moderate right facet joint osteoarthritis. The re is moderate bilateral neural foraminal stenosis. There is mild central canal stenosis. L3-L4: Disc is bulging. There is mild hypertrophy of the ligamentum flavum. There is moderate right and mild to moderate left facet joint osteoarthritis. There is moderate bilateral, right greater than left, neural foraminal stenosis. There is mild to moderate central canal stenosis. L4-L5: Disc is bulging. There is hypertrophy of the ligamentum flavum. There is severe bilateral fac et joint osteoarthritis. There is moderate bilateral, left greater than right, neural foraminal steno sis. There is moderate central canal stenosis. L5-S1: Disc does not extend beyond the more posterior L5 inferior endplate margin. There is mild to m oderate bilateral facet joint osteoarthritis. There is moderate bilateral neural foraminal stenosis. There is no central canal stenosis. IMPRESSION: 1. Lumbar and lower thoracic spondylosis, severe at L5-S1 and otherwise mild. Reviewed, dictated and finalized at location A.
== END 2024-01-17 07:34 | disposition home or self-care (01) ==
LOC: MICIMG 07:35
DX: M43.06 Spondylolysis, lumbar region (principal); M43.04 Spondylolysis, thoracic region; M47.897 Other spondylosis, lumbosacral region
CPT/HCPCS: 72158; A9577

== ENCOUNTER 2024-09-11 11:04 | Emergency (ER) | payer MEDICARE, SELFPAY ==
--- NOTE | ~2024-09-11 | CT_ITS ---
EXAMINATION: CT abdomen pelvis w con DATE: 09/11/2024 12:25 INDICATION: Abdominal pain TECHNIQUE: Computed tomography (CT) of the abdomen and pelvis was performed with 100 mL Omnipaque-350 intravenous contrast. Automated exposure control and iterative reconstruction technique were employe d. The dose-length product was 1093.57 mGy-cm. COMPARISON: None FINDINGS: Calcified nodules in the left lower lobe, calcified left hilar lymph nodes and multiple small are hep atic and splenic calcifications consistent with old granulomatous disease. Heart size is normal. No p ericardial or pleural effusion. Diffuse hepatic steatosis with mild focal fatty sparing along the gal lbladder fossa and small region of multiple small regions of likely focal hepatic steatosis near the anterior aspect of the gallbladder fossa extending towards the ligamentum teres. Gallbladder, pancrea s and bilateral adrenal glands are normal. There are bilateral subcentimeter low-attenuation renal cy sts. Small bowel and appendix are normal. There is wall thickening beginning in the distal transverse colon extending throughout the descending colon to the proximal sigmoid colon with some associated p ericolonic from trace stranding and some hyperemia to the last recta consistent with a focal colitis. Bladder and prostate are unremarkable but partially obscured by dense metallic streak artifact from bilateral total hip arthroplasties. Surgical clips along the posterolateral spermatic cord suggesting prior vasectomy. Minimal amount of likely reactive free fluid in the deep pelvis. No abscess or free intraperitoneal gas. No pathologically enlarged abdominal or pelvic lymphadenopathy. There is small amount of nonhemodynamically significant calcified atherosclerosis of the normal caliber abdominal ao rta.. No stenosis of the celiac axis, superior mesenteric, inferior mesenteric and bilateral renal ar teries. There is also a tiny accessory right renal artery supplying portion of the lower pole. Severe spondylosis at L5-S1 with mild spondylosis and more cephalad lumbar and lower thoracic spine. Chroni c likely physiologic mild anterior wedging at T11-L2. IMPRESSION: 1. Wall thickening from the distal transverse to the proximal sigmoid colon consistent with colitis w hich could be infectious, inflammatory or ischemic in etiology. Reviewed, dictated and finalized at location A. IMPRESSION: 1. Wall thickening from the distal transverse to the proximal sigmoid colon con sistent with colitis which could be infectious, inflammatory or ischemic in preet ology.
[2024-09-11 11:18] VITALS: BP 134/79; PULSE 115; RESP 14; TEMP 36.4; O2SAT 95
--- OUTSIDE RECORDS SUMMARY | 2024-09-11 11:25 | XMS_ITS | Clinical Summary ---
Author Organization [facility] Care Team Providers Care Business Teacher Name Role Phone Sejal Singh APRN, CNP Primary Care Pro vider Allergies Active Allergy Reactions Criticality Noted Date Comments Penicillin G Hives 04/12/2015 Penicillins Hives Medications lisinopril (PRINIVIL, ZESTRIL) 5 MG Tablet Take 5 mg by mouth daily. Active lansoprazole (PREVACID) 30 MG CAPSULE DELAYED RELEASE Take 30 mg by mouth every morning. Active DULoxetine (CYMBALTA) [address] Particles Take 60 mg by mouth nightly. Active HYDROcodone-andrews taminophen (NORCO) 7.5-325 MG Tablet Take 1 Tab by mouth Every 4 hours as needed for Pain. 5 Active rosuvastatin (CRESTOR) 40 MG Tablet Take 40 mg by mouth daily. Active Aspirin 81 MG Tablet Take 81 mg by mouth daily. INSTRUCTED TO HOLD FOR 7 DAYS PRIOR TO 08/20/[address] SIERRA. 5 Active metoprolol tartrate (LOPRESSOR) 25 MG Tablet Take 25 mg by mouth every morning. Active ezetimibe (Zetia) 10 MG Tablet Take 10 mg by mouth daily. Active celecoxib (CeleBREX) 100 MG Capsule Take 100 mg by mouth daily. INSTRUCTED TO HOLD FOR 7 DAYS PRIOR TO 08/20/[address] SIERRA. Active fish oil-omega-3 fatty acids 1000 MG Capsule Take 1,000 mg by mouth daily. INSTRUCTED TO HOLD FOR 7 DAYS PRIOR TO 08/20/[address] SIERRA. Active Active Problems Problem Noted Date Diagnosed Date Spinal stenosis of lumbar re gion without neurogenic claudication 03/04/2024 Nontraumatic complete tear of left rotator cuff 07/27/2020 Degenerative joint disease (DJD) of hip 04/20/20 15 Arthralgia Fibromyalgia Encounters Date Type Department Care Team Description 08/20/2024 9:10 AM CDT - 08/20/2024 10:10 AM CDT Surgery [facility] [address] [address] [place] [address] Raulito Sierra MD LUMBAR EPIDURAL STEROID INJECTION 08/20/2024 8:29 AM CDT Anesthesia Event [facility] [address] [place] [address] Tony Saez MD 08/20/2024 6:58 AM CDT - 08/20/2024 10:00 AM CDT Hospital Encounter [facility] Preop/Pacu II [address] [place] [address] Raulito Sierra MD Discharge Disposition: Discharged to home or Selfcare 08/20/2024 Travel 08/18/2024 Travel from Last 3 Months Family History Medical History Relation Name Comments Hypertension Father Pacemaker Father Chronic Obstructive Pulmonary Disease Mother Osteoarthritis Mother Relation Name Status Comments Father Alive Mother Social History Tobacco Use Types Packs/Day Years Used Date Smoking Tobacco: Every Day Cigarettes Smokeless Tobacco: Never Tobacco Cessation:Ready to Q uit: Not Asked; Counseling Given: Not Answered Alcohol Use Standard Drinks/Week Comments Yes 6 (1 standard drink = 0.6 oz pur e alcohol) SOCIALLY Sexually Active Control Partners Comments Yes Female Sex and Gender Information Value Date Recorded Sex Assigned at Not on file Legal Sex Male 11:04 AM CDT Gender Identity Not on file Sexual Orientation Not on file Last Filed Vital Signs Vital Sign Reading Time Taken Comments Blood Pressure 135/84 08/20/2024 9:45 AM CDT Pulse 105 08/20/2024 9:45 AM CDT Temperature 36.3 C (97.4 F) 08/20/2024 9:45 AM CDT Respiratory Rate 18 08/20/2024 9:45 AM CDT Oxygen Saturation 98% 08/20/2024 9:45 AM CDT Inhaled Oxygen Concentration - - Weight 101.3 kg (223 lb 6 oz) 08/20/2024 7:20 AM CDT Height 177.8 cm (5' 10 ) 08/20/2024 7:20 AM CDT Body Mass Index 32.05 08/20/2024 7:20 AM CDT Plan of Treatment Health Maintenance Due Date Last Done Comments Hepatitis C Virus (HCV) Screening 1961 Colonoscopy 2006 Colorectal Cancer Screening 2006 Cologuard 2011 Immunochemical Fecal Occult Blood 2011 Zoster Immunization (1 of 2) 2011 PSA Discussion 02/10/2016 SARS-COV-2 Immunization ( season) 2024 05/01/2021, 08/29/2020, 07/31/2020, Additional history exists Pneumococcal Immunization (50+ years) (2 of 2 - PCV) 04/16/2024 04/16/2023, 03/26/2014 Influenza Immunization (Season Ended) 2025 02/22/2023, 03/06/2017, 04/21/2015, Additional history exists DTaP/Tdap/Td Immunization Discontinued 08/16/2016, 05/2016 TdaP Immunization Completed 08/16/2016, 05/20/2016 Respiratory Syncytial Virus (RSV) Immunization (Adult) Completed 03/27/2023 Pneumococcal Immunization Combined Discontinued 04/16/2023, 03/26/2014 Hepatitis B Immunization Aged Out No longer eligible based on patient's age to complete this topic Meningococcal Immunization (ACWY) Aged Out No longer eligible based on patient's age to complete this topic Rotavirus Immunization Aged Out No lo nger eligible based on patient's age to complete this topic Medical Devices Implanted Type Area Quality Control Supervisor Device Identifier Shelf Expiration Date Model / Serial / Lot Dynasty Acetabular System Comp Biofoam S - [id number] Implanted:Qty: 1 on 04/20/2015 by Raulito Sierra MD at [facility] IMPLANT Right: Hip [employer] [id number] / / [id number] [facility] St Advtm 6.5x30mm - [id number] Implanted:Qty: 1 on 04/20/2015 by Raulito Sierra MD at [facility] IMPLANT Right: Hip [employer] 09/18/2022 [id number] / / [id number] Profemur Renaissance Stem Standard Sz 15 - [id number] Implanted:Qty: 1 on 04/20/2015 by Raulito Sierra MD at [facility] IMPLANT Right: Hip [employer] 05/21/2021 [id number] / [id number] / [id number] Dynasty Aclass Poly Liner 15 Deg Liner 3 - [id number] Implanted:Qty: 1 on 04/20/2015 by Raulito Sierra MD at [facility] IMPLANT Right: Hip [employer] 11/18/2022 [id number] / / [id number] Conserve Head/Neck Sleeves For Bch/Bfh 0 - [id number] Implanted:Qty: 1 on 04/20/2015 by Raulito Sierra MD at [facility] IMPLANT Right: Hip [employer] 09/18/2022 [id number] / / [id number] Scr Canc St Advtm 6.5x25mm - [id number] Implanted:Qty: 1 on 04/20/2015 by Raulito Sierra MD at [facility] IMPLANT Right: Hip [employer] 07/19/2021 [id number] / / [id number] Conserve Big Ceramic Femoral Head 38mm - [id number] Implanted:Qty: 1 on 04/20/2015 by Raulito Sierra MD at [facility] IMPLANT Right: Hip [employer] 09/18/2020 [id number] / / [id number] Profemur Plus Cocr Neck A/R 8 Short - [id number] Implanted:Qty: 1 on 04/20/2015 by Raulito Sierra MD at [facility] IMPLANT Right: Hip [employer] 01/19/2023 [id number] / / [id number] System Fix 19.1mm 4.75mm Speedbridge Swivelock Biocomposite David Preload Strl - [id number] Implanted:Qty: 1 on 07/27/2020 by Raluito Sierra MD at [facility] IMPLANT Left: Shoulder [employer] 05/19/2023 [id number] S-4 / [id number] S-4 / [id number] Procedures Procedure Name Priority Date/Time Associated Diagnosis Comments XR SURGICAL EXAM Routine 08/20/2024 8:56 AM CDT [place] NJX AA&/STRD TFRML EPI LUMBAR/SACRAL EA ADDL 08/20/2024 8:09 AM CDT LUMBAR STENOSIS Special Needs 5'10 225LBS HTN, ACID REFLUX [place] NJX AA&/STRD TFRML EPI LUMBAR/SACRAL 1 LEVEL 08/20/2024 8:09 AM CDT LUMBAR STENOSIS Special Needs 5'10 225LBS HTN, ACID REFLUX [place] NJX AA&/STRD TFRML EPI CERVICAL/THORACIC EA ADDL 08/20/2024 8:09 AM CDT LUMBAR STENOSIS Special Needs 5'10 225LBS HTN, ACID REFLUX [place] NJX AA&/STRD TFRML EPI CERVICAL/THORACIC 1 LEVEL 08/20/2024 8:09 AM CDT LUMBAR STENOSIS Special Needs 5'10 225LBS HTN, ACID REFLUX NJX INTERLAMINAR LMBR/SAC W IMG 08/20/2024 8:09 AM CDT LUMBAR STENOSIS Special Needs 5'10 225LBS HTN, ACID REFLUX NJX INTERLAMINAR CRV/THRC W IMG 08/20/2024 8:09 AM CDT LUMBAR STENOSIS Special Needs 5'10 225LBS HTN, ACID REFLUX from Last 3 Months Results * XR SURGICAL EXAM (08/20/2024 8:56 AM CDT) Raulito Sierra MD IMG DIAGNOSTIC ORDERABLES Final Result from Last 3 Months Insurance MEDICARE C [facility] Advance Directives * Full Code (Latest Code Status on File) Date Activated Date Inactivated Comments 04/26/2015 7:39 AM 07/27/2020 5:29 AM * Full Code Date Activated Date Inactivated Comments 04/21/2015 7:16 AM 04/23/2015 3:44 PM Full Code: FULL ARREST: Attempt Resuscitation/CPR and use intubation and mechanical ventilation as indicated. PRE-ARREST: Use all measures to stabilize patient. Care Teams Business Teacher Relationship Specialty Start Date End Date Sejal Singh APRN, CONTINUOUS PROCESS [employer] [address] [place] [address] PCP - General Certified Nurse Practitioner 12/15/19
--- OUTSIDE RECORDS SUMMARY | 2024-09-11 11:25 | XMS_ITS | Referral Summary ---
Author Organization [facility] Medical Office Building [address] Address [address] [place] [address] Care Team Providers Care Art Director Name Role Phone Haim Colunga MD Primary Care Provider [phone] Allergies Active Allergy Reactions Criticality Noted Date Comments Penicillins Hives High Reaction: Hives, , Reaction: Hives, Medications albuterol HFA (PROVENTIL HFA,VENTOLIN HFA,PROAIR HFA) 90 mcg/actuation inhaler Inhale 1 puff daily 3 Active celecoxib (CeleBREX) 200 mg capsule Take 1 capsule (200 mg total) by mouth daily [address] (CYMBALTA) 30 mg capsule Take 2 capsules (60 mg total) by mouth nightly Active Zetia 10 mg tablet Take 1 tablet (10 mg total) by mouth daily 9 Active Prevacid 30 mg capsule Take 1 capsule (30 mg total) by mouth daily 0 Active lisinopriL (PRINIVIL,ZESTR [place]) 5 mg tablet Take 0.5 tablets (2.5 mg total) by mouth daily 9 Active metFORMIN XR (GLUCOPHAGE XR) 500 mg 24 hr tablet Take 1 tablet (500 mg total) by mouth daily 3 Active metoprolol tartrate (LOPRESSOR) 25 mg immediate release tablet Take 1 tablet (25 mg total) by mouth daily 9 Active rosuvastatin (CRESTOR) 40 mg tablet Take 1 tablet (40 mg total) by mouth daily 9 Active cyclobenzaprine (FLEXERIL) 10 mg tablet TAKE 1 TABLET BY MOUTH TWICE A DAY NEEDED FOR MUSCLE SPASMS 4 Active vuqoh-7-snb-epa -fish oil (Fish OiL) 300-1,000 mg capsule,delayed release(DR/EC) Fish Oil 300-1,000 mg capsule,delayed release(DR/EC) 8 Active triamcinolone (KENALOG) 0.1 % ointment APPLY 1 APPLICATION SPARINGLY ONTO THE AFFECTED AREA(S) ON THE SKIN EVERY 12 HOURS NEEDED 4 Active Active Problems Problem Noted Date Diagnosed Date Dysautonomia 09/27/2023 Dizziness and giddiness 05/10/2023 Seizure-like activity 05/10/2023 Unsteady gait 05/10/2023 Tussive syncope 04/08/2023 Mixed diabetic hyperlipidemi a associated with type 2 diabetes mellitus 04/08/2023 PVC (premature ventricular contraction) 04/08/20 NSVT (nonsustained ventricular tachycardia) 03/21 AXEL (obstructive sleep apnea) 04/08/2023 Arthralgia 11/24/2013 Overview (08/25/2016): Arthralgia Aseptic necrosis of bone of hip 11/24/2013 Overview (08/25/2016): Osteonecrosis of hip Chronic headache 11/24/2013 Overview (08/25/2016): Chronic headaches Essential hypertension 11/24/2013 Overview (08/25/2016): Unspecified essential hypertension Knee pain 09/16/2013 Arthralgia of hip 09/16/2013 Chronic pain 09/30/2012 Cervico-occipital neuralgia 09/30/2012 Osteoarthritis of cervical spine 09/30/2012 Hyperlipidemia 03/26/2012 Hypertension associated with diabetes 03/26/2012 Gastroesophageal reflux disease 03/26/2012 Pain in extremity 03/24/2012 Cervicalgia 03/20/2012 Social History Tobacco Use Types Packs/Day Years Used Date Smoking Tobacco: Heavy Smoker Tobacco Cessation:Ready to Q uit: Not Asked; Counseling Given: Not Answered Comments:Smoking History Packs/day: 1 Packs Alcohol Use Standard Drinks/Week Comments Yes 0 (1 standard drink = 0.6 oz pur e alcohol) Personal Safety Answer Date Recorded Have you ever been in or are you currently in a harmful physical or emotional relationship or is someone making you feel afraid or unsafe? Denies 06/21/2023 Sex and Gender Information Value Date Recorded Sex Assigned at Not on file Legal Sex Male 6:41 PM LI[employer] CENTER [employer] Gender Identity Not on file Sexual Orientation Not on file Last Filed Vital Signs Vital Sign Reading Time Taken Comments Blood Pressure 147/98 09/27/2023 10:02 AM CDT Pulse 97 09/27/2023 10:02 AM CDT Temperature 36.7 C (98.1 F) 06/21/2023 10:30 AM LIQUID CENTER AS[employer]ER Respiratory Rate 18 07/23/2023 11:5 8 AM LIQUID CENTER ASSEMBLER Oxygen Saturation 93% 09/27/2023 10: 02 AM CDT Inhaled Oxygen Concentration - - Weight 104.1 kg (229 lb 6.4 oz) 024 10:02 AM CDT Height 177.8 cm (5' 10 ) 09/27/2023 10: 02 AM CDT Body Mass Index 32.92 09/27/2023 10:02 AM CDT Plan of Treatment Not on file Procedures Procedure Name Priority Date/Time Associated Diagnosis Comments EGFR Routine 09/27/2023 11:13 AM CDT Unsteady gait POCT LIPID PANEL Routine 02/27/2023 3:16 PM CDT Hyperlipidemia, unspecified hyperlipidemia type SERUM HEPATITIS PANEL Routine 11/24/2013 12:16 PM CDT from Last 3 Months or Most Recently Relevant to Health Maintenance Results * eGFR (09/27/2023 11:13 AM CDT) eGFR >90 >=60 mL/min/1. 73 m2 Comment: Interpretive Data Reference Interval Normal >/= 90 mL/min/1.73m2 Mildly decreased* 60 - 89 mL/min/1.73m2 Mildly to moderately decreased 45 - 59 mL/min/1.73m2 Moderately to severely decreased 30 - 44 mL/min/1.73m2 Severely decreased 15 - 29 mL/min/1.73m2 Kidney Failure < 15 mL/min/1.73m2 *Relative to young adult level Estimated glomerular filtration rate is determined by the 2020 CKD-EPI equation recommended by the National Kidney Foundation (A Unifying Approach to GFR Estimation: Recommendations of the NKF-ASK Task Force on Reassessing the Inclusion of Race in Diagnosing Kidney Disease, JASN 2020). The CKD-EPI equation should not be used for patients with unstable renal function and has not been validated in children and those over 70. Current interpretive data was last reviewed 2021. Blood 09/27/2023 11:1 3 AM CDT 09/27/2023 2:00 PM CDT Dann Thakur MD LAB BLOOD ORDERABLES Fi nal Result [facility] Department of Laboratories [place] [id number] * POCT lipid panel (02/27/2023 3:16 PM CDT) Cholesterol, POC 193 mg/dL HDL, POC 69 mg/dL Triglycerides, POC 179 mg/dL LDL Cholesterol POC 89 mg/dL Chol/HDL Ratio, POC 1.3 Non-HDL Cholesterol, POC 124 mg/dL Capillary blood 02/27/2023 3 :16 PM CDT us Jayda Eng NP POINT OF CARE TEST ORDERABLE S Final Result * Serum Hepatitis panel (11/24/2013 12:16 PM CDT) HBV surface ag Non-Reacti ve Non-Reacti ve HISTORICAL RESULTS HCV ab Non-Reacti ve Non-Reacti ve HISTORICAL RESULTS HBV core ab, IgM Non-Reacti ve Non-Reacti ve HISTORICAL RESULTS HAV ab, IgM Non-Reacti ve Non-Reacti ve HISTORICAL RESULTS Serum 11/24/2013 12:1 6 PM CDT us Kurt Spence MD LAB BLOOD ORDERABLES Final R esult HISTORICAL RESULTS from Last 3 Months or Most Recently Relevant to Health Maintenance Insurance [employer] MEDICARE HMO [employer] MED[employer]ARE HMO Advance Directives For more information, please contact: [phone] * Full Code (Latest Code Status on File) Date Activated Date Inactivated Comments 06/21/2023 9:20 AM 06/22/2023 4:53 AM Care Teams Art Director Relationship Specialty Start Date End Date Haim Colunga MD [id number] [address] PCP - General Family Medicine 08/13/23
--- OUTSIDE RECORDS SUMMARY | 2024-09-11 11:25 | XMS_ITS | Clinical Summary ---
Author Organization [facility] Address [address] [place] [address] Care Team Providers Care Industrial Maintenance Repairer Name Role Phone Haim Colunga MD Primary Care Provider [phone] Allergies Active Allergy Reactions Criticality Noted Date [...] DAY NEEDED FOR MUSCLE SPASMS 4 Active iqzbw-4-azm-epa -fish oil (Fish OiL) 300-1,000 mg capsule,delayed [...] 03/26/2012 Pain in extremity 03/24/2012 Cervicalgia 03/20/2012 Surgical History Surgery Date Site/Laterality Comments ROTATOR CUFF REPAIR 05/20/2021 - 05/19/2022 Left TOTAL HIP ARTHROPLASTY Bilateral 2012 and 2017 BACK SURGERY 05/20/1988 - 05/19/1989 HERNIA REPAIR TONSILLECTOMY FL FLUORO GUIDED LUMBAR PUNCTURE 06/21/2023 Right Medical History Medical History Date Comments Hyperlipidemia Syncope PVCs (premature ventricular contractions) Diabetes mellitus (HCC) Hypertension Family History Medical History Relation Name Comments Hypertension Father Other Father Alive and well; Hypertension Mother Other Mother Alive and well; Relation Name Status Comments Father Alive Mother [...] on file 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 Gender Identity Not on file Sexual Orientation Not on file Obstetrics History Last Filed Vital Signs Vital Sign Reading Time Taken Comments Blood Pressure 147/98 09/27/2023 10:02 AM CDT Pulse 97 09/27/2023 10:02 AM CDT Temperature 36.7 C (98.1 F) 06/21/2023 10:30 AM ACID CRANE 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 Respiratory Rate 18 07/23/2023 11:5 8 AM ACID CRANE OPERATOR Oxygen Saturation 93% 09/27/2023 10: 02 AM CDT Inhaled Oxygen Concentration - - Weight 104.1 kg (229 lb 6.4 oz) 024 10:02 AM CDT Height 177.8 cm (5' 10 ) 09/27/2023 10: 02 AM CDT Body Mass Index 32.92 09/27/2023 10:02 AM CDT Plan of Treatment Health Maintenance Due Date Last Done Comments Albumin Creatinine Ratio, Urine 1961 Colon Cancer Screening-Colonoscopy 1961 Depression Screening 1961 Hemoglobin A1C 1961 Prostate Cancer Screening-PSA 1961 Dilated Eye Exam 1961 Foot Exam 1961 Hepatitis B Screening 1979 Regular Well Visit/Exam 18-64 1979 Zoster Vaccine (1 of 2) 2011 Pneumococcal vaccine <65 (2 of 2 - PCV) 03/26/2015 03/26/2014 Covid-19 Vaccine (4 - season) 2024 05/01/2021, 08/29/2020, 07/31/2020 Lipid Panel 02/28/2024 02/27/2023 eGFR 09/26/2024 09/27/2023 Influenza Vaccine (Season Ended) 2025 03/06/2017, 04/21/2015, 03/26/2014 DTaP/Tdap/Td Vaccine (3 - Td or Tdap) 08/16/2026, 05/20/2016 Hepatitis C Screening Completed 11/24/2013 Procedures Procedure Name Priority Date/Time Associated Diagnosis [...] 3 AM CDT 09/27/2023 2:00 PM CDT us Dann Thakur MD LAB BLOOD ORDERABLES Fi nal Result RITO HUDSON ([place]) [facility] Department [place] [address] * POCT lipid panel (02/27/2023 3:16 PM [...] Most Recently Relevant to Health Maintenance [place] [address] [place] [address] MEDICARE HMO HUMANA MEDICARE HMO HUMANA MEDICARE HMO Advance Directives For more information, please contact: [phone] * Full Code (Latest Code Status on File) Date Activated Date Inactivated Comments 06/21/2023 9:20 AM 06/22/2023 4:53 AM Care Teams Industrial Maintenance Repairer Relationship Specialty Start Date End Date Haim Colunga MD [address] [address] PCP - General Family Medicine 08/13/23
--- OUTSIDE RECORDS SUMMARY | 2024-09-11 11:26 | XMS_ITS | Continuity of Care Document ---
Author Organization [facility] Address [address] [place] [address] [place] [address] Phone Care Team Providers Care Wood Piler Name Role Phone Gucci Tinajero Unavailable Unavailable Procedures Procedure Date Eye Exam, New Patient Advance Directives Directive Yes / No Effective Date File Name No Information Encounters Encounter Description Practice Location Reason(s) For Visit Diagnoses Date Provider Providers Copied on Encounter [facility], [address], [place], [place], [id number], [place] tel:[phone] [facility] No Information 2-[address] Tanvi Gucci. [address] [facility] [address], [place], [address], [place]. tel:[phone] Family History Family Member Type Diagnosis Age At Onset No Information Payers Payer name Insurance type Covered green party ID Authorcharitya ticarole(s) [employer] Vision Plan CI [id number] Social History Type Description Quantity Date Captured Comments Sex Male Smoking Status No Information Chief Complaint And Reason For Visit No Information Reason For Referral Reason For Referral No Information History Of Present Illness Encounter Date Complaint History Of Prese nt Illness No Information Functional Status Date Functional Assessmen t No Information Instructions Date Instruction Additional Infor mation No Information Assessments Type Assessment Date No Information Patient Care Teams Name Effective Dates (start - stop) Status Members No Information
--- OUTSIDE RECORDS SUMMARY | 2024-09-11 11:26 | XMS_ITS | Clinical Summary ---
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
--- OUTSIDE RECORDS SUMMARY | 2024-09-11 11:26 | XMS_ITS | Encounter Summary ---
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 Gender Identity Not on file Sexual Orientation Not on file documented as of this encounter Plan of Treatment Not on file documented as of this encounter Procedures Procedure Name Priority Date/Time Associated Diagnosis Comments SCAN - LABS 08/16/2023 documented in this encounter Results * SCAN - LABS (08/16/2023) us Provider Scanning Edited Result - Final documented in this encounter Visit Diagnoses Not on filedocumented in this encounter Care Teams Cable Puller Relationship Specialty Start Date End Date Haim Colunga MD [address] [address] PCP - General Family Medicine 08/13/23 documented as of this encounter
--- OUTSIDE RECORDS SUMMARY | 2024-09-11 11:26 | XMS_ITS | Encounter Summary ---
Author Organization [facility] Address [address] [facility] [place] [address] Phone Care Team Providers Care Blocker And Polisher Name Role Phone Sejal Singh APRN, CNP Primary Care Pro vider Reason for Referral * Radiology Services (Routine) - Closed Specialty Diagnoses / Procedures Referred By Nick silva Referred To Contact Radiology Diagnoses Pre-op testing Procedures EKG 12 LEAD Raulito Cullen MD Phone: tel: fax: Referral ID Status Reason Start Date Expiration Date Visits Re quested Visits Authorized [id number] Closed 07/20/2020 1 1 N THERAPIST * Radiology Services (Routine) - Closed Specialty Diagnoses / Procedures Referred By Nick silva Referred To Contact Radiology Diagnoses Pre-op testing Procedures XR CHEST 2 VIEWS Raulito Cullen MD Phone: tel: fax: Referral ID Status Reason Start Date Expiration Date Visits Re quested Visits Authorized [id number] Closed 07/20/2020 1 1 N THERAPIST Encounter Details Date Type Department Care Team (Latest Contact Info) Description 07/20/2020 Transcribe Orders [facility] Preop/Pacu II [address] [place] [id number] Raulito Cullen MD [address] [place] [address] Pre-op testing (Primary Dx) Social History Tobacco Use Types Packs/Day Years Used Date Smoking Tobacco: Every Day Cigarettes Smokeless Tobacco: Never Alcohol Use Standard Drinks/Week Comments Yes 0 (1 standard drink = 0.6 oz pur e alcohol) SOCIALLY Sex and Gender Information Value Date Recorded Sex Assigned at Not on file Legal Sex Male 11:04 AM CDT Gender Identity Not on file Sexual Orientation Not on file COVID-19 Exposure Response Date Recorded In the last month, have you been in contact with someone who was confirmed or suspected to have Coronavirus / COVID-19? No / Unsure 07/20/2020 2:59 PM COLON THERAPIST documented as of this encounter Plan of Treatment Not on file documented as of this encounter Results * SARS-COV-2 BY MOLECULAR (07/24/2020 9:02 AM COLON THERAPIST) SARSCOV2 NOT DETECTED (Referen ce Range for this test is Not Detected ) [facility] THERMOFISHER FAST DX 07/25/2020 10:35 AM COLON THERAPIST [facility] [place] [facility] Comment:This test was perfor med by a RT-PCR method. Other NASOPHARYNGEAL STRUCTURE / Unknown Non-Phlebotomy Collection / Unknown 07/24/2020 9:02 AM COLON THERAPIST 07/24/2020 10:04 AM COLON THERAPIST Narrative [facility] - 07/25/2020 10:35 AM COLON THERAPIST Authorized Fact Sheets about this test for providers and patients are available at: https://www.fda.gov/medical-devices/pywatxsiu-cgaqbygykh-zumwbzq-devices/emergen cy-us e-authorizations us Raulito Cullen MD MICROBIOLOGY - GENERAL ORDERABLE S Final Result [facility] [address] [place] [address], [place] * XR CHEST 2 VIEWS (07/21/2020 11:23 AM COLON THERAPIST) Anatomical Region Laterality Modality Chest N/A Digital Radiogra phy 07/21/2020 6:31 PM COLON THERAPIST Impressions 07/21/2020 6:34 PM COLON THERAPIST IMPRESSION: No radiographic evidence of an acute cardiopulmonary abnormality. Narrative 07/21/2020 6:34 PM COLON THERAPIST EXAM DESCRIPTION: XR CHEST 2 VIEWS REASON FOR STUDY: Preop testing prior to surgery July 28, 2019 for left rotator cuff. No current chest complaints. TECHNIQUE: Frontal and lateral radiographic views of the chest acquired. COMPARISON: 04/12/2015. FINDINGS: LUNGS/PLEURA: Calcified bilateral hilar lymph nodes and calcified pulmonary nodules are in keeping with old granulomatous disease. No focal consolidation. No pleural effusion or pneumothorax. No pulmonary edema. Small linear focus of scarring seen anteriorly on the lateral view, unchanged. HEART/MEDIASTINUM: Heart size is normal. Normal mediastinal and hilar contours. HARDWARE/LINES/TUBES: Suture anchors are seen in the left humeral head. BONES: No acute findings. OTHER: No other significant finding. THIS IS AN ELECTRONICALLY VERIFIED FINAL REPORT 07/21/2020 6:31 PM - Electronically signed by Renaldo Lugo : Report ID: [id number] Reading Location: [id number] Procedure Note Renaldo Lugo MD - 07/21/2020 EXAM DESCRIPTION: XR CHEST 2 VIEWS REASON FOR STUDY: Preop testing prior to surgery July 28, 2019 for left rotator cuff. No current chest complaints. TECHNIQUE: Frontal and lateral radiographic views of the chest acquired. COMPARISON: 04/12/2015. FINDINGS: LUNGS/PLEURA: Calcified bilateral hilar lymph nodes and calcified pulmonary nodules are in keeping with old granulomatous disease. No focal consolidation. No pleural effusion or pneumothorax. No pulmonary edema. Small linear focus of scarring seen anteriorly on the lateral view, unchanged. HEART/MEDIASTINUM: Heart size is normal. Normal mediastinal and hilar contours. HARDWARE/LINES/TUBES: Suture anchors are seen in the left humeral head. BONES: No acute findings. OTHER: No other significant finding. THIS IS AN ELECTRONICALLY VERIFIED FINAL REPORT 07/21/2020 6:31 PM - Electronically signed by Renaldo Lugo : Report ID: [id number] Reading Location: [id number] IMPRESSION: No radiographic evidence of an acute cardiopulmonary abnormality. us Raulito Cullen MD IMG DIAGNOSTIC ORDERABLES Final Result * EKG 12 LEAD (07/21/2020 10:50 AM COLON THERAPIST) Ventricular Rate BPM EXTERNAL EKG Atrial Rate BPM EXTERNAL EKG P-R Interval 138 ms EXTERNAL EKG QRS Duration 88 ms EXTERNAL EKG Q-T Duration 338 ms EXTERNAL EKG QTC CALCULATION 436 ms EXTERNAL EKG P [place] 58 degrees EXTERNAL EKG R [place] 82 degrees EXTERNAL EKG T [place] 40 degrees EXTERNAL EKG 07/21/2020 10:5 0 AM COLON THERAPIST Impressions EXTERNAL EKG - 07/22/2020 10:28 AM COLON THERAPIST Sinus tachycardia Comparison Summary: No significant change Summary: Normal ECG except for rate Compared with:04/12/2015 12:01 PM Sinus tachycardia is new Confirmed by Gissel Reynolds on 07/22/2020 10:28:13 AM Narrative Procedure Note Saloni Chauhan MD - 07/22/2020 IMPRESSION: Sinus tachycardia Comparison Summary: No significant change Summary: Normal ECG except for rate Compared with:04/12/2015 12:01 PM Sinus tachycardia is new Confirmed by Gissel Reynolds on 07/22/2020 10:28:13 AM Raulito Cullen MD IMG ECG ORDERABLES Final Result EXTERNAL EKG * (ABNORMAL) CMP (COMPREHENSIVE METABOLIC PANEL) (07/21/2020 10:43 AM COLON THERAPIST) SODIUM 137 136 - 144 mmol/L 07/21/2020 12:25 PM COLON THERAPIST [facility] POTASSIUM 4.4 3.5 - 5.1 mmol/L 07/21/2020 12:25 PM COLON THERAPIST [facility] CHLORIDE 99(L) 100 - 110 mmol/L 07/21/2020 12:25 PM COLON THERAPIST [facility] CO2, VENOUS 26 22 - 32 mmol/L 07/21/2020 12:25 PM [facility] ANION GAP 16.4 8.0 - 20.0 mmol/L 07/21/2020 12:25 PM [facility] GLUCOSE 100(H) 70 - 99 mg/dL 07/21/2020 12:25 PM [facility] BUN 11 6 - 20 mg/dL 07/21/2020 12:25 PM [facility] CREATININE, BLOOD 0.67(L) 0.80 - 1.30 mg/dL 07/21/2020 12:25 PM [facility] BUN/CREATININE RATIO 16 12 - 20 ratio 07/21/2020 12:25 PM [facility] TOTAL PROTEIN 7.2 6.0 - 8.3 g/dL 07/21/2020 12:25 PM [facility] ALBUMIN 4.4 3.5 - 5.2 g/dL 07/21/2020 12:25 PM [facility] Comment: The colormetric methods used for the determination of Albumin may lead to falsely elevated test results in patients suffering from renal failure or insufficiency due to interference with other proteins. A/G RATIO 1.6 1.0 - 2.0 07/21/2020 12:25 PM [facility] CALCIUM 9.1 8.9 - 10.3 mg/dL 07/21/2020 12:25 PM [facility] T BILI 0.5 <=1.2 mg/dL 07/21/2020 12:25 PM [facility] SGOT (AST) 39 <=40 U/L 07/21/2020 12:25 PM [facility] SGPT (ALT) 37 <=41 U/L 07/21/2020 12:25 PM [facility] ALKALINE PHOSPHATASE 66 40 - 130 U/L 07/21/2020 12:25 PM [facility] GFR, EST. NONAFRICAN >60 >=60 07/21/2020 12:25 PM COLON THERAPIST [facility] GFR, EST. >60 >=60 021 12:25 PM COLON THERAPIST [facility] Comment: Creatinine Clearance is the preferred criteria for selecting drug dose adjustments in renally impaired patients. The GFR is provided as additional pertinent clinical information. GFR is reported in mL/min/1.73 sq m. IS THE PATIENT REQUIRED TO BE FASTING? No 07/21/2020 12:25 PM COLON THERAPIST [facility] Blood Venipuncture / Unknown 07/21/2020 10:43 AM COLON THERAPIST 07/21/2020 11:48 AM COLON THERAPIST us Raulito Cullen MD CHEMISTRY ORDERABLES Final Resul t [facility] [place] [address] documented in this encounter Visit Diagnoses Diagnosis Pre-op testing- Primary Preoperative examination, unspecified Pre-op testing Preoperative examination, unspecified Pre-op testing Preoperative examination, unspecified documented in this encounter Care Teams Blocker And Polisher Relationship Specialty Start Date End Date Sejal Singh, ELIAN, MICROBIOLOGY DIRECTOR [address] [place] [address] PCP - General Certified Nurse Practitioner 12/15/19 documented as of this encounter
--- OUTSIDE RECORDS SUMMARY | 2024-09-11 11:26 | XMS_ITS | Clinical Summary ---
Author Organization [facility] Address [address] [facility] [place] [address] Care Team Providers Care Drum Sander Setter Name Role Phone Stanley Herzog MD Primary Care Provider [phone] [facility],non-owned Affiliates and Associated Physician Practices is amultiple site organization consisting of ambulatory clinics and hospital sitesin [place], [place], [place] and [place]. This disclosure is being madepursuant to the Care Everywhere program and may not contain all information available regarding this patient. 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 Gender Identity Not on file Sexual Orientation Not on file Plan of Treatment Health Maintenance Due Date Last Done Comments COLOGUARD (AGES 45-75) - COL ON CA SCREENING 1961 COLON MONITORING 1961 COLONOSCOPY - COLON CA SCREENING 1961 CT COLONOGRAPHY - COLON CA SCREENING 1961 Colorectal Cancer Screening 1961 FIT - COLON CA SCREENING 1961 FLEX SIG - COLON CA SCREENING 1961 HIV SCREENING 02/10/1976 HEPATITIS C SCREENING 02/05/1979 DTAP/TDAP/TD VACCINES (1 - Tdap) 02/10/1980 PNEUMOCOCCAL VACCINE 50+ (1 of 1 - PCV) 2011 ZOSTER VACCINE (1 of 2) 2011 COVID-19 VACCINE ( - 2023-2 5 season) 2024 DEPRESSION SCREENING 05/20/2024 MEDICARE AWV CALENDAR YEAR 2024 INFLUENZA VACCINE (Season Ended) 2025 LIPID TESTING 02/28/2028 02/27/2023 Respiratory Syncytial Virus (RSV) Vaccine Pt: or over 60 yrs (1 - 1-dose 75+ series) 02/10/2036 HEPATITIS B VACCINE Aged Out No longe r eligible based on patient's age to complete this topic HIB VACCINE Aged Out No longer eligi ble based on patient's age to complete this topic HPV VACCINE Aged Out No longer eligi ble based on patient's age to complete this topic MENINGOCOCCAL (Group B) VACC INE SHARED DECISION-MAKING Aged Out No longer eligibl e based on patient's age to complete this topic MENINGOCOCCAL GROUPS A/C/Y/W VACCINE Aged Out No longer eligible b ased on patient's age to complete this topic Insurance MEDICARE HE[employer] HE[employer] HUMANA MEDICARE ADV HMO & PPO Care Teams Drum Sander Setter Relationship Specialty Start Date End Date Stanley Herzog MD [address] [address] PCP - General 05/29/18
--- OUTSIDE RECORDS SUMMARY | 2024-09-11 11:26 | XMS_ITS | Clinical Summary ---
Author Organization [facility] Address [facility] [address] Care Team Providers Care Shearer Screen Measurer And Trimmer Name Role Phone Pamella Castano NP Primary Care Provider [phone] Allergies Active Allergy Reactions Criticality Noted Date Comments Penicillins Hives,Unknown High 04/12/2015 Reaction: Hives, , Reaction: Hives, Medications Aspirin 81 MG Cap Take 81 mg by mouth daily. Active celecoxib (CELEBREX) 200 MG capsule Take 1 capsule (200 mg total) by mouth 2 (two) times daily. 4 Active cyclobenzaprine (FLEXERIL) 10 MG tablet Take 1 tablet (10 mg total) by mouth 2 (two) times daily as needed. FOR MUSCLE SPASMS Active TRULICITY 0.75 MG/0.5ML injection Inject 0.75 mg into the skin once a week. 4 Active DULoxetine (CYMBALTA) 60 MG capsule Take 1 capsule (60 mg total) by mouth daily. 4 Active ezetimibe (ZETIA) 10 MG tablet Take 1 tablet (10 mg total) by mouth daily. Active lisinopril (PRINIVIL) 10 MG tablet Take 1 tablet (10 mg total) by mouth every morning. 4 Active rosuvastatin (CRESTOR) 40 MG tablet Take 1 tablet (40 mg total) by mouth nightly. Active triamcinolone (KENALOG) 0.1 % ointment Apply topically 2 (two) times daily as needed. 4 Active metoprolol tartrate (LOPRESSOR) 25 MG tablet Take 1 tablet (25 mg total) by mouth daily. Active metFORMIN ER (GLUCOPHAGE-XR) 500 MG 24 hr tablet Take 1 tablet (500 mg total) by mouth daily. 4 Active lansoprazole (PREVACID) 30 MG capsule Take 1 capsule (30 mg total) by mouth daily. Active Multiple Vitamin (MULTIVITAMIN ADULT OR) Take 1 tablet by mouth daily. Active Morgan-3 Fatty Acids (FISH OIL) 500 MG capsule Take 500 mg by mouth daily. Active sulfamethoxazol e-trimethoprim (BACTRIM DS) 800-160 MG tablet Take 1 tablet by mouth 2 (two) times daily. 4 Active pregabalin (LYRICA) 100 MG capsule Take 1 capsule (100 mg total) by mouth. 4 Active celecoxib (CELEBREX) 100 MG capsule Take 1 capsule (100 mg total) by mouth daily. Active Active Problems Problem Noted Date Diagnosed Date Disruption of external surgical wound, initial e ncounter 04/13/2024 Tendon rupture of wrist, left, initial encounter 02/21/2024 Encounters Date Type Department Care Team Description 06/29/2024 Hosp Visit [facility] [address] [place], [place] [id number] Terrance Khan, OTR from Last 3 Months Immunizations Immunization Administration Dates Next Due Arexvy Respiratory Syncytial Virus (RSV, adjuvanted) 0.5 mL, PF 03/27/2023 Tdap (Generic) 08/16/2016 Family History Medical History Relation Comments Hypertension Father COPD Mother Diabetes Mother Hypertension Mother Relation Status Comments Father Alive Mother Social History Tobacco Use Types Packs/Day Years Used Date Smoking Tobacco: Some Days Cigarettes Passive Smoke Exposure: Current Tobacco Cessation:Ready to Q uit: No; Counseling Given: Yes Comments:MD to credit support counselor Alcohol Use Standard Drinks/Week Comments Yes 0 (1 standard drink = 0.6 oz pur e alcohol) socially PHQ-2 Answer Date Recorded Patient Health Questionnaire-2 Score 0 05/21/2024 Sex and Gender Information Value Date Recorded Sex Assigned at Not on file Legal Sex Male 2:19 PM CDT Gender Identity Not on file Sexual Orientation Not on file Last Filed Vital Signs Vital Sign Reading Time Taken Comments Blood Pressure 155/89 05/21/2024 9:49 AM PLODDING OPERATOR Pulse 102 05/21/2024 9:49 AM PLODDING OPERATOR Temperature 36.5 C (97.7 F) 05/21/2024 9:21 AM PLODDING OPERATOR Respiratory Rate 16 04/17/2024 10:4 0 AM PLODDING OPERATOR Oxygen Saturation 98% 04/17/2024 10: 40 AM PLODDING OPERATOR Inhaled Oxygen Concentration - - Weight 104.1 kg (229 lb 9.6 oz) 05/21/2024 9:21 AM PLODDING OPERATOR Height 177.8 cm (5' 10 ) 05/21/2024 9:21 AM PLODDING OPERATOR Body Mass Index 32.94 05/21/2024 9:21 AM PLODDING OPERATOR Plan of Treatment Health Maintenance Due Date Last Done Comments Colorectal Cancer Screening Colonoscopy (10 Years) 1961 Annual Physical 02/10/1964 Hepatitis C 1979 Zoster Vaccines (1 of 2) 2011 COVID-19 Vaccine ( - season) 2024 05/01/2021, 08/29/2020, 08/29/2020, Additional history exists Pneumococcal Vaccine: 50+ Years (2 of 2 - PCV) 04/16/2024 04/16/2023, 03/26/2014 DTaP, Tdap and Td Vaccines (3 - Td or Tdap) 08/16/2026 08/16/2016, 05/20/2016 RSV Immunization or 60+ Years Completed 03/27/2023 PHQ-2 (Physician [place]) Completed 05/21/2024 Meningococcal B Vaccine Aged Out No l onger eligible based on patient's age to complete this topic Meningococcal Vaccine Aged Out No sergey neha eligible based on patient's age to complete this topic RSV Immunizations Under 20 Months Aged Out No longer eligible based on patient's age to complete this topic Insurance [facility] Care Teams Shearer Screen Measurer And Trimmer Relationship Specialty Start Date End Date Pamella Castano NP [address] [place] [phone] PCP - General NURSE PRACTITIONER 01/03/24
--- OUTSIDE RECORDS SUMMARY | 2024-09-11 11:26 | XMS_ITS | Encounter Summary ---
Author Organization [employer] Address [address] [place] [address] Care Team Providers Care Paedodontist Name Role Phone Unavailable Primary Care Provider Unavailabl e Encounter Details Date Type Department Care Team (Late st Contact Info) Description 06/24/2002 Outpatient Historical HIS MRI DEPT Conversion, History ABDOMINAL PAIN UNSPEC SITE (Primary Dx) Social History Tobacco Use Types Packs/Day Years Used Date Smoking Tobacco: Never Assessed Sex and Gender Information Value Date Recorded Sex Assigned at Not on file Legal Sex Male 4:55 AM [employer] Gender Identity Not on file Sexual Orientation Not on file documented as of this encounter Plan of Treatment Not on file documented as of this encounter Visit Diagnoses Diagnosis Abdominal pain, unspecified site- Primary documented in this encounter
--- OUTSIDE RECORDS SUMMARY | 2024-09-11 11:26 | XMS_ITS | CONTINUITY OF CARE DOCUMENT ---
Author Name irma solis Address Unknown Organization [facility] Address [address] [place] [address] Phone [phone] Care Team Providers Care Bilingual School Psychologist Name Role Phone Shane JAIMES, Melani Unavailable Francisco TAX ANALYST-BC, Gisell Murphy Unavailable Francisco TAX ANALYST-BC, Gisell Jeffrey Unavailable PROBLEMS Condition Status Date Provider Notes SINUS TACHYCARDIA-07/29 DONITA R SR completed - Melani Lynn MD Hyperlipidemia completed - Melani Lynn MD HTN ESSENTIAL-07/02 NUC NEG completed - Lorena Lynn MD Tobacco abuse completed - Melani Lynn MD OBESITY active ? Gonzalez Monahan MD CHEST PAIN-12/29 CATH NL active ? Jens Orozco R N Syncope active ? Melani Lynn MD Lyme disease active Melani Lynn MD Dyspnea on exertion active Melani Menjivar Diabetes mellitus, Type II - A1c 6.3% 01/2018 active Melani Lynn MD COPD - mild active Melani Lynn MD Hyperglycemia completed - Melani Lynn MD DYSLIPIDEMIA active Melani Lynn MD HTN essential active Melani Lynn MD Sinus tachycardia active Melani Lynn MD PAD active Melani Lynn MD Tobacco use active Melani Lynn MD Dizziness and lightheadedness active Leona Lynn MD ENCOUNTERS Date Type Provider Location Encounter Diag nosis - In-person encounter Office Visit Melani Lynn MD [place] [facility] Dizziness and lightheadedness - In-person encounter Office Visit Melani Lynn MD [place] [facility] Tobacco abuseTobacco use - In-person encounter Office Visit Melani Lynn MD [facility] PAD - In-person encounter Office Visit Melani Lynn MD [facility] - In-person encounter Office Visit Melani Lynn MD [facility] - In-person encounter Office Visit Melani Lynn MD [facility] - In-person encounter Office Visit Melani Lynn MD [facility] Office SINUS TACHYCARDIA-07/29 HOLTER SRHTN ESSENTIAL-07/02 NUC NEGHTN essentialSinus tachycardia - In-person encounter Office Visit Melani Lynn MD [facility] - In-person encounter Office Visit Melani Lynn MD [facility] Diabetes mellitus, Type II - A1c 6.3% 01/2018Hyperglycemia - In-person encounter Office Visit Melani Lynn MD [facility] DYSLIPIDEMIA - In-person encounter Office Visit Melani Lynn MD [facility] Diabetes mellitus, Type II - A1c 6.3% 01/2018COPD - mild - In-person encounter Office Visit Melani Lynn MD [facility] SyncopeLyme diseaseDyspnea on exertion - In-person encounter Office Visit Gonzalez Monahan MD [place] [facility] - In-person encounter Office Visit Gonzalez Monahan MD [facility] - In-person encounter Office Visit Gonzalez Monahan MD [facility] CHEST PAIN-12/29 CATH NL - In-person encounter Office Visit Gonzalez Monahan MD [place] [facility] SINUS TACHYCARDIA-07/29 HOLTER SRHyperlipidemiaHTN ESSENTIAL-07/02 NUC NEGTobacco abuseOBESITY VITAL SIGNS Date Observation Value Provider Body Mass Index (Ratio) 35.14 kg/m2 Varun Lynn MD oxygen saturation, oximetry 95 % Glory Lena pulse rate 88 /min Glory Lena respiratory rate E&M 16 /min Catheri ne Lena weight E&M 238 [lb_av] Glory Juice blood pressure, cuff size regular Ca therine Juice height E&M 69 [in_i] Glory Juice Body Mass Index (Ratio) 34.70 kg/m2 David chandra Nacht blood pressure, diastolic 80 mm[Hg] Li nkLogic blood pressure, systolic 140 mm[Hg] Elizabeth kLogic blood pressure, cuff size large Tr aleksandr Ortiz blood pressure, diastolic 80 mm[Hg] Tr yjack Ortiz blood pressure, systolic 140 mm[Hg] Try nett Ortiz oxygen saturation, oximetry 98 % Trynett Ortiz respiratory rate E&M 16 /min Trynett Ortiz pulse rate 95 /min Trynett Ortiz weight E&M 235 [lb_av] Trynett Ortiz height E&M 69 [in_i] Trynett Ortiz Body Mass Index (Ratio) 33.67 kg/m2 Carly Crockett blood pressure, cuff size large Brigida Bryan blood pressure, diastolic 80 mm[Hg] Brigida kumari [place] blood pressure, systolic 132 mm[Hg] Raul carty [place] oxygen saturation, oximetry 99 % Christine Bryan respiratory rate E&M 16 /min Kendra mitra [place] pulse rate 104 /min Christine menjivar weight E&M 228 [lb_av] Christine Tony menjivar height E&M 69 [in_i] Christine menjivar Body Mass Index (Ratio) 33.22 kg/m2 Varun Lynn MD blood pressure, diastolic 94 mm[Hg] Omaira arguellesLogsamir blood pressure, systolic 132 mm[Hg] Elizabeth Diamondogsamir blood pressure, diastolic 94 mm[Hg] Rh elaina Neena blood pressure, systolic 132 mm[Hg] Rho ndshannan Chaudhary pulse rate 100 /min Maureen Chaudhary oxygen saturation, oximetry 96 % Maureen Chaudhary blood pressure, cuff size regular Joaquni delaney Neena respiratory rate E&M 16 /min Maureen Chaudhary weight E&M 225 [lb_av] Maureen Chaudhary height E&M 69 [in_i] Maureen Chaudhary Body Mass Index (Ratio) 31.89 kg/m2 Sukumar Diaz blood pressure, cuff size regular Kr isty Cullen blood pressure, diastolic 80 mm[Hg] Kr isty Kelly blood pressure, systolic 130 mm[Hg] Kri sty Cullen pulse rate 106 /min Gifty Kelly oxygen saturation, oximetry 97 % Gifty Kelly respiratory rate E&M 18 /min Gifty Kelly weight E&M 216 [lb_av] Gifty Cullen height E&M 69 [in_i] Gifty Cullen Body Mass Index (Ratio) 33.13 kg/m2 Sukumar Morante blood pressure, cuff size regular Kr isty Cullen blood pressure, diastolic 80 mm[Hg] Kr isty Kelly blood pressure, systolic 142 mm[Hg] Kri sty Cullen respiratory rate E&M 18 /min Gifty Cullen pulse rate 107 /min Gifty Cullen oxygen saturation, oximetry 97 % Gifty Kelly weight E&M 224.4 [lb_av] Gifty Kelly height E&M 69 [in_i] Gifty Cullen Body Mass Index (Ratio) 33.96 kg/m2 Varun Lynn MD blood pressure, diastolic 100 mm[Hg] Fe tigre Garcia blood pressure, systolic 140 mm[Hg] Fel icia Garcia oxygen saturation, oximetry 97 % Magdalena Garcia respiratory rate E&M 18 /min Magdalena Garcia pulse rate 99 /min Magdalena Garcia weight E&M 230 [lb_av] Magdalena Garcia height E&M 69 [in_i] Magdalena Garcia Body Mass Index (Ratio) 34.11 kg/m2 Varun Lynn MD blood pressure, diastolic 80 mm[Hg] Kr isty Kelly blood pressure, systolic 130 mm[Hg] Kri sty Kelly oxygen saturation, oximetry 98 % Gifty Kelly respiratory rate E&M 17 /min Gifty Cullen pulse rate 101 /min Gifty Kelly blood pressure, cuff size regular Kr isty Cullen weight E&M 231 [lb_av] Gifty Cullen height E&M 69 [in_i] Gifty Cullen Body Mass Index (Ratio) 35.44 kg/m2 Varun Lynn MD blood pressure, diastolic 92 mm[Hg] Neel Nava blood pressure, systolic 160 mm[Hg] Betty Nava oxygen saturation, oximetry 96 % Brandie Nava pulse rate 115 /min Brandie Matias Chau weight E&M 240 [lb_av] Brandie Ritchie height E&M 69 [in_i] Brandie Matias Chau Body Mass Index (Ratio) 35.14 kg/m2 Varun Lynn MD blood pressure, cuff size large Ke rri Magi blood pressure, diastolic 100 mm[Hg] Ke rri Magi blood pressure, systolic 140 mm[Hg] Saide bishnu Sow oxygen saturation, oximetry 98 % Glenna Magi respiratory rate E&M 20 /min Glenna kelly pulse rate 105 /min Glenna Quique [facility] weight E&M 238 [lb_av] Glenna Quique er height E&M 69 [in_i] Glenna Quique [facility] Body Mass Index (Ratio) 35.14 kg/m2 Maxwell Kapadia respiratory rate E&M 16 /min [facility], [facility] 70 mm[Hg] Arnulfo [facility] blood [facility], systolic 120 mm[Hg] Milagro cha Ferreira oxygen saturation, oximetry 95 % Betty Ferreira pulse rate 105 /min Betty Ferreira weight E&M 238 [lb_av] Beulah Ferreira height E&M 69 [in_i] Beulah Ferreira Body Mass Index (Ratio) 35.14 kg/m2 Varun Lynn MD pulse rate, standing 110 /min Lorena Lynn MD blood pressure, diastolic, standing 54 mm [Hg] Melani Lynn MD blood pressure, systolic, standing 78 mm[ Hg] Melani Lynn MD pulse rate, sitting 96 /min Melani Lynn MD blood pressure, diastolic, sitting 64 mm[ Hg] Melani Lynn MD blood pressure, systolic, sitting 106 mm[ Hg] Melani Lynn MD blood pressure, resting Yes Jim reyes Johnathan blood pressure, diastolic 64 mm[Hg] astredd Johnathan blood pressure, systolic 110 mm[Hg] Amelia stity Johnathan oxygen saturation, oximetry 95 % [facility] respiratory rate E&M 16 /min Jasiel Matthewsue pulse rate 101 /min Ameliaity Johnathan weight E&M 238 [lb_av] Ameliaity Johnathan height E&M 69 [in_i] Juddity Johnathan blood pressure, diastolic 90 mm[Hg] Daniel Orozco RN blood pressure, systolic 132 mm[Hg] Jens Orozco RN pulse rate 111 /min Jens Orozco RN oxygen saturation, oximetry 98 % Jens Orozco RN respiratory rate E&M 18 /min Jens laboy RN Body Mass Index (Ratio) 32.75 kg/m2 Jens Orozco RN weight E&M 221 [lb_av] Jens Orozco RN blood pressure, diastolic 54 mm[Hg] Daniel Orozco RN blood pressure, systolic 100 mm[Hg] Jens Orozco RN pulse rate 112 /min Jens Orozco RN oxygen saturation, oximetry 97 % Jens Orozco RN respiratory rate E&M 16 /min Jens laboy RN Body Mass Index (Ratio) 32.50 kg/m2 Jens Orozco RN weight E&M 219.3 [lb_av] Jens Orozco RN Body Mass Index (Ratio) 33.20 kg/m2 Eleazar rizzo Magi blood pressure, diastolic 98 mm[Hg] Segundo estes Magi blood pressure, systolic 151 mm[Hg] Sadie goetz Magi pulse rate 110 /min Glenna Jakemitra er oxygen saturation, oximetry 98 % Glenna Magi respiratory rate E&M 17 /min Glenna Kuhn leticia weight E&M 224 [lb_av] Glenna hoganer Body Mass Index (Ratio) 32.75 kg/m2 Jens Orozco RN blood pressure, diastolic 92 mm[Hg] Daniel Orozco RN blood pressure, systolic 145 mm[Hg] Jens Orozco RN pulse rate 105 /min Jens Orozco RN oxygen saturation, oximetry 92 % Jens Orozoc RN respiratory rate E&M 17 /min Jens laboy RN weight E&M 221 [lb_av] Jens Orozco RN height E&M 69 [in_i] Jens Orozco RN ALLERGIES Allergy Name Onset Date Reaction Criticality Status PENICILLIN Low Criticality active RESULTS Date Observation Value Provider Reference Range Interpretation Location 4 pro brain natriuretic peptide 20 pg/mL Link[facility] 0-210 4 free thyroxine index 1.6 [facility] 1.2-4.9 4 triiodothyronine resin uptake 26 % [facility] 24-39 4 thyroxine, serum, total 6.1 ug/dL [facility] 4.5-12.0 4 thyroid stimulating hormone, serum 1.810 u[IU]/mL [facility] 0.450-4.500 4 hemoglobin A1C, blood, as % of total hemoglobin 6.2 % [facility] 4.8-5.6 High 4 lipoprotein, beta, serum, point, quantitative, calculated 74 mg/dL [facility] 0-99 4 HDL cholesterol, serum 79 mg/dL [facility] >39 4 triglyceride, serum, random 233 mg/dL [facility] 0-149 High 4 cholesterol, serum 190 mg/dL [facility] 060-076 4040/12/2 4 platelet count 155 X10E3/UL [facility] 607-704 4151/12/2 4 red blood cell distribution width 12.4 % [facility] 11.6-15.4 4 mean corpuscular hemoglobin concentration, RBC 33.4 G/DL [facility] 31.5-35.7 4 mean corpuscular hemoglobin, RBC 31.2 pg [facility] 26.6-33.0 4 mean corpuscular volume, RBC 93 fL [facility] 79-97 4 hematocrit, blood 49.7 % [facility] 37.5-51.0 4 hemoglobin, blood 16.6 g/dL [facility] 13.0-17.7 4 erythrocyte (RBC) count 5.32 X10E6/UL [facility] 4.14-5.80 4 leukocyte count, blood 8.0 X10E3/UL [facility] 3.4-10.8 4 alanine aminotransferase (SGPT), serum 19 1/L [facility] 0-44 4 aspartate aminotransferase (SGOT), serum 24 1/L [facility] 0-40 4 alkaline phosphatase, serum 66 1/L [facility] 44-121 4 bilirubin, serum, total 0.4 mg/dL [facility] 0.0-1.2 4 albumin/globulin ratio, serum 1.6 [facility] 1.2-2.2 4 globulin, serum 2.7 [facility] 1.5-4.5 4 albumin, serum 4.4 g/dL [facility] 3.8-4.9 4 protein, total, serum 7.1 g/dL [facility] 6.0-8.5 4 calcium, serum 9.3 mg/dL [facility] 8.6-10.2 4 carbon dioxide, venous blood 24 mmol/L [facility] 20-29 4 chloride, serum 100 mmol/L [facility] 96-106 4 potassium, serum 5.4 mmol/L [facility] 3.5-5.2 High 4 sodium, serum 140 mmol/L [facility] 291-659 4506/12/2 4 urea nitrogen/creatinine ratio, serum 14 [facility] 10-24 4 eGFR if 109 mL/min/{1 .73_m2} [facility] >59 4 eGFR if not 94 mL/min/{1 .73_m2} [facility] >59 4 creatinine, serum 0.86 mg/dL [facility] 0.76-1.27 4 urea nitrogen, blood 12 mg/dL [facility] 8-27 4 blood glucose, random 108 mg/dL [facility] 65-99 High HISTORY OF MEDICATION USE Medication Status Instructions Dates Provider Indications Com ments metoprolol tartrate 25 mg tablet active TAKE 1/2 TABLET TWICE DAILY Jean Claude isrrael rosuvastatin 40 mg tablet active Take 1 tablet once a day Melani Lynn MD #[id number], 90 days supply, Prescribed by GISELL CARREON, Filled 04/23/2019 Trelenaif Ellipta 100-62.5-25 mcg blister with device active Magdalena Garcia Zetia 10 mg tablet active Take 1 tablet by mouth once a day Gifty Mendoza lisinopril 5 mg tablet active Take 1 tablet once a day Maureen Chaudhary MULTIVITAMINS CAPS active 1 tablet once a day Glenna Sow metoprolol tartrate 25 mg tablet completed Take 0.5 tablet by mouth twice a day - Jean Claude Cardoso Fish Oil 300-1,000 mg capsule,delayed release(DR/EC) active One capsule at breakfast, one capsule at lunch, and two capsules with dinner. Melani Lynn MD BREAnibal ELLIPTA 100-25 MCG/INH INHALATION AEROSOL POWDER BREATH ACTIVATED completed one puff once daily - Magdalena Garcia LISINOPRIL 20 MG ORAL TABLET completed ONE TAB DAILY - Melani Lynn MD ASPIRIN 81 MG ORAL TABLET active 1 tablet once a day Jens Orozco RN TRICOR 145 MG ORAL TABLET completed ONE TAB. DAILY - Gifty Mendoza CRESTOR 10 MG ORAL TABLET completed ONE TAB. DAILY - Melani Lynn MD Prevacid 30 mg capsule,delayed release(DR/EC) active once a day Jens Orozco RN CARVEDILOL 12.5 MG ORAL TABLET completed 1 tab twice daily - Melnai Lynn MD SOCIAL HISTORY Date Observation Value Provider social history reviewed E&M hannah stovall - no changes required Melani Lynn MD social history E&M Marital Statu s: Jeffrey faustin with family/friends J ob Status: Employed full-time Smoking History: Vinicio ribeiro is a former smoker. Melani Lynn MD seatbelt usage 100 % Glory Mickie s caffeine use, averag e drinks per day yes Glory Lena passive cigarette sm liam exposure yes Glory Lena smoking, date started 1987 Cather ine Lena smoking history, tot al pack/year 26 Glory Juice smoking history, tot al pack/day 1 Glory Lena cigarette use yes Glory Juice smoking status Former smoker Glory Ot is social history E&M Marital Statu s: L roxie with family/friends J ob Status: Employed full-time Smoking History: Vinicio ribeiro is a former smoker. Melani Lynn MD social history reviewed E&M revmatthias ewed - no changes required Melani Lynn MD cigarette use yes Trynett Edward s smoking status Former smoker Tryjack Edwa rds social history E&M Marital Statu s: L roxie with family/friends J ob Status: Employed full-time Smoking History: Vinicio ribeiro currently smokes every day. Vinicio ribeiro has been counseled to quit. Melani Lynn MD social history reviewed E&M hannah ewed - no changes required Melani Lynn MD smoking status Current every day smoker Alina johnston [place] seatbelt usage 100 % [facility] caffeine use, averag e drinks per day yes Christine [place] passive cigarette sm liam exposure yes Christine [place] smoking/tobacco cess ation, patient education and counseling yes Christine [place] smoking, date started 1987 Adam bradley [place] smoking history, tot al pack/year 26 Christine [place] smoking history, tot al pack/day 1 Christine [place] cigarette use yes [facility] seat[facility] usage 100 % Melani sanchez MD caffeine use, averag e drinks per day yes Melani Lynn MD passive cigarette sm liam exposure yes Melani Lynn MD smoking/tobacco cess ation, patient education and counseling yes Melani Lynn MD smoking, date started 1987 Leona Lynn MD smoking history, tot al pack/year 26 Melani Lynn MD smoking history, tot al pack/day 1 Melani Lynn MD cigarette use yes Melani Lynn MD smoking status Current every day smoker M luis Lynn MD social history reviewed E&M revi ewed - no changes required Melani Lynn MD social history E&M Marital Statu s: L roxie with family/friends J ob Status: Employed full-time Smoking History: P atient currently smokes every day. P atient has been counseled to quit. Melani Lynn MD social history reviewed E&M revi ewed - no changes required Melani Lynn MD seatbelt usage 100 % Gifty Cullen caffeine use, averag e drinks per day yes Gifty Cullen passive cigarette sm liam exposure yes Gifty Kelly smoking/tobacco cess ation, patient education and counseling yes Gifty Cullen smoking, date started 1987 Gifty Cullen smoking history, tot al pack/year 26 Gifty Cullen smoking history, tot al pack/day 1 Gifty Cullen cigarette use yes Gifty Kelly smoking status Current every day smoker K ryan Kelly social history E&M Marital Statu s: L roxie with family/friends J ob Status: Employed full-time Smoking History: P atient currently smokes every day. P atient has been counseled to quit. Melani Lynn MD social history reviewed E&M revi ewed - no changes required Melani Lynn MD seatbelt usage 100 % Gifty Kelly caffeine use, averag e drinks per day yes Gifty Kelly passive cigarette sm liam exposure yes Gifty Kelly smoking/tobacco cess ation, patient education and counseling yes Gifty Cullen smoking, date started 1987 Gifty Kelly smoking history, tot al pack/year 26 Gifty Kelly smoking history, tot al pack/day 1 Gifty Kelly cigarette use yes Gifty Cullen smoking status Current every day smoker K ryan Kelly seatbelt usage 100 % Magdalena Garcia caffeine use, averag e drinks per day yes Magdalena Garcia passive cigarette sm liam exposure yes Magdalena Garcia smoking/tobacco cess ation, patient education and counseling yes Magdalena Garcia smoking, date started 1987 Roman campbell Garcia smoking history, tot al pack/year 26 Magdalena Garcia smoking history, tot al pack/day 1 Magdalena Garcia cigarette use yes Magdalena Garcia smoking status Current every day smoker Jerald Garcia social history E&M Marital Statu s: L roxie with family/friends J ob Status: Employed full-time Smoking History: P atient currently smokes every day. P atient has been counseled to quit. Melani Lynn MD social history reviewed E&M revi ewed - no changes required Melani Lynn MD seatbelt usage 100 % Gifty Lopesby caffeine use, averag e drinks per day yes Gifty Lopesby passive cigarette sm liam exposure yes Gifty Kelly smoking/tobacco cess ation, patient education and counseling yes Gifty Lopesby smoking, date started 1987 Gifty Cullen smoking history, tot al pack/year 26 Gifty Cullen smoking history, tot al pack/day 1 Gifty Lopesby cigarette use yes Gifty Kelly smoking status Current every day smoker Britney Lopesby alcohol use, type beer Melani rey MD social history E&M Marital Statu s: L roxie with family/friends J ob Status: Employed full-time Smoking History: P atient currently smokes every day. P atient has been counseled to quit. Melani Lynn MD seatbelt usage 100 % Brandie Hull Kasey alcohol counseling yes Melani Lynn MD alcohol use, average drinks per day social Brandie Elijah alcohol use yes Brandie Polly Ritchie caffeine use, averag e drinks per day yes Brandie Elijah drug use none Brandie TylerLulu Chau smoking/tobacco cess ation, patient education and counseling yes Brandie TylerLuluChau passive cigarette sm liam exposure yes Brandie MatiasChau smoking, date started 1987 Brandie TylerLuluChau smoking history, tot al pack/year 26 Brandie TylerLuluChau smoking history, tot al pack/day 1 Brandie TylerLuluChau cigarette use yes Brandie Jayson Davlaos smoking status Current every day smoker Mitra stanton Elijah social history reviewed E&M revi ewed - no changes required Brandiedenys Nava social history E&M Marital Statu s: Jeffrey faustin with family/friends J ob Status: Employed full-time Smoking History: Vinicio ribeiro currently smokes every day. Vinicio ribeiro has been counseled to quit. Melani Lynn MD social history reviewed E&M revi ewed - no changes required Melani Lynn MD seatbelt usage 100 % Glenna james alcohol counseling no Glenna arias alcohol use, average drinks per day social Glenna Sow alcohol use yes Glenna delgado caffeine use, averag e drinks per day yes Glenna Sow drug use none Glenna delgado smoking/tobacco cess ation, patient education and counseling yes Glenna Sow passive cigarette sm liam exposure yes Glenna Sow smoking, date started 1987 Glenna Sow smoking history, tot al pack/year 26 Glenna Sow smoking history, tot al pack/day 1 Glenna Sow cigarette use yes Glenna ramos smoking status Current every day smoker K power Sow social history reviewed E&M revi ewed - no changes required Radha Kapadia number of grandchildren Melani Lynn MD social history reviewed E&M revi ewed - no changes required Melani Lynn MD seatbelt usage 100 % Chastity Hogu e alcohol counseling [facility] alcohol use, average drinks per day social [facility] Johnathan alcohol use yes [facility], averag e drinks per day yes [facility] smoking/tobacco cess ation, patient education and counseling yes [facility] sm liam exposure [facility], tot al pack/year 26 Chastity Johnathan smoking history, tot al pack/day 1 Chastity Johnathan cigarette use yes [facility] smoking status Current every day smoker C hastitgracy Johnathan smoking/tobacco cess ation, patient education and counseling yes Jens Orozco RN passive cigarette sm liam exposure yes Jens Orozco RN social history reviewed E&M reviewed Jens Orozco RN smoking history, tot al pack/year 26 Jens Orozco RN social history reviewed E&M reviewed Jens Orozco RN smoking history, tot al pack/year 25 Jens Orozco RN smoking history, tot al pack/year 25 Jens Orozco RN social history reviewed E&M reviewed Gonzalez Monahan MD smoking history, tot al pack/year 25 Glenna Josephrosalesneel seatbelt usage 100 % Gonzalez Monahan MD alcohol counseling no Gonzalez bennett MD social history E&M Marital Statu s: Jeffrey faustin with family/friends J ob Status: Employed full-time Gonzalez Monahan MD drug use none Gonzalez Menjivar smoking/tobacco cess ation, patient education and counseling yes Jens Orozco RN smoking history, tot al pack/day 1 Jens Orozco RN smoking history, tot al pack/year 25 Jens Orozco RN smoking, date started 1987 Zenon corbin RN caffeine use, averag e drinks per day yes Jens Orozco RN alcohol use, average drinks per day social Jens Orozco RN cigarette use yes Jens Orozco RN smoking status current every day smoker J alfredo Orozco RN social history reviewed E&M reviewed Jens Orozco RN FUNCTIONAL STATUS Date Observation Value Provider Reason Fall Assessment not done medical c ontraindication Beulah Ferreira MENTAL STATUS Date Observation Value Provider assessment of judgme nt and insight E&M Alert and oriented to time, place and person. Mood and affect are normal. Jens Orozco RN assessment of judgme nt and insight E&M Alert and oriented to time, place and person. Mood and affect are normal. Jens Orozco RN assessment of judgme nt and insight E&M Alert and oriented to time, place and person. Mood and affect are normal. Gonzalez Monahan MD assessment of judgme nt and insight E&M Alert and oriented to time, place and person. Mood and affect are normal. Jens Orozco RN INSURANCE PROVIDERS Payer name Policy type / Coverage type [employer] ID [employer] HMO [id number] ADVANCE DIRECTIVES Name Date DISCUSSED - NO DECISION MADE TREATMENT PLAN Date Name Performer [id number],C,D enies of any symptoms at present. The sensilase was mildly abnormal last time it was checked. Melani Lynn MD [id number],N,E pisodes of dizziness on standing. Infrequent episodes and no obvious cause is known. We will check carotid doppler, stress test, and obtain 7 day monitor. Patient was advised to increase water intake. Patient was instructed to record BP regularly while standing up, and record BP when episodes of dizziness happen. Melani Lynn MD [id number],C,In remission. Melani Lynn MD [id number],C,Uses trelegy as needed. Melani Lynn MD [id number],C,On rosuvastat in, zetia. Melani Lynn MD [id number],C,D iet controlled. Continues on lisinopril. Melani Lynn MD [id number],S, P atient reports that he only smokes when he has a beer. Melani Lynn MD [id number],S, F lareups usually occur in summer. Responds to abx and steroids. Melani Lynn MD [id number],S, C ontinues on Crestor and Zetia. Melani Lynn MD [id number],S, N o recurrence. Effort tolerance stable. Melani Lynn MD [id number],S, D iet controlled. Continues on lisinopril for renal protection. Melani Lynn MD [id number],S, B P control is satisfactory. Advised reduced sodium intake and weight reduction. Melani Lynn MD [id number],S, R ecent ABIs were normal. Sensilase showed reduced distal pressures with adequate perfusion for wound healing. His leg pain is likely related to long-term back issues. Melani Lynn MD [id number],S, N o further recurrence. Melani Lynn MD [id number],S, S TRONGLY ENCOURAGED TO STOP SMOKING; SMOKING CESSATION TECHNIQUES DISCUSSED. Melani Lynn MD [id number],S, D enies of any shortness of breath. Continues on Trelegy. Melani Lynn MD [id number],C, C ontinues on Crestor and Zetia. Melani Lynn MD [id number],C, D iet controlled. Continues on lisinopril for renal protection. Melani Lynn MD [id number],C,H is symptoms are not consistent with PAD. The dorsalis pedis and PT are palpable on both feet. Will repeat ABIs and Sensilase. Melani Lynn MD [id number],C,P ersistent sinus tachycardia. Will increase the dose of BB, if he remains tachycardic will consider Corlanor. Melani Lynn MD [id number],C,R ecent exacerbation with rash and joint pain. He reports feeling much better after treatment with abx and steroids. Melani Lynn MD [id number],C,D iet controlled. Continues on lisinopril for renal protection. Melani Lynn MD [id number],C,Continues on Crestor and Zetia. Melani Lynn MD [id number],C,B P control is satisfactory. Advised reduced sodium intake and weight reduction. Melani Lynn MD [id number],C,N o recurrence. Effort tolerance stable. Melani Lynn MD [id number],C,1 02 bpm on EKG today. He continues on 12.5 mg Metoprolol BID due to previous orthostasis on 25 mg. He has been advised that if he is symptomatic with palpitations, he can take 25 mg Metoprolol. Melani Lynn MD Cardiology:Denies of any symptoms at present. The sensilase was mildly abnormal last time it was checked. Melani Lynn MD Cardiology:Episodes of dizziness on standing. Infrequent episodes and no obvious cause is known. We will check carotid doppler, stress test, and obtain 7 day monitor. Patient was advised to increase water intake. Patient was instructed to record BP regularly while standing up, and record BP when episodes of dizziness happen. Melani Lynn MD Cardiology:In remission. Lorena Lynn MD Cardiology:Uses emma as nabil Lynn MD Cardiology:On rosuvastatin, zeti a. Melani Lynn MD Cardiology:Diet controlled. Cont inues on lisinopril. Melani Lynn MD Cardiology: P atient reports that he only smokes when he has a beer. Melani Lynn MD Cardiology: F lareups usually occur in summer. Responds to abx and steroids. Melani Lynn MD Cardiology: C ontinues on Crestor and Zetia. Melani Lynn MD Cardiology: N o recurrence. Effort tolerance stable. Melani Lynn MD Cardiology: D iet controlled. Continues on lisinopril for renal protection. Melani Lynn MD Cardiology: B P control is satisfactory. Advised reduced sodium intake and weight reduction. Melani Lynn MD Cardiology: R ecent ABIs were normal. Sensilase showed reduced distal pressures with adequate perfusion for wound healing. His leg pain is likely related to long-term back issues. Melani Lynn MD Cardiology: N o further recurrence. Melani Lynn MD Cardiology: S WENDYLY ENCOURAGED TO STOP SMOKING; SMOKING CESSATION TECHNIQUES DISCUSSED. Melani Lynn MD Cardiology: D enies of any shortness of breath. Continues on Trelegy. Melani Lynn MD Cardiology: C ontinues on Crestor and Zetia. Melani Lynn MD Cardiology: D iet controlled. Continues on lisinopril for renal protection. Melani Lynn MD Cardiology:His sympt oms are not consistent with PAD. The dorsalis pedis and PT are palpable on both feet. Will repeat ABIs and Sensilase. Melani Lynn MD Cardiology:Persisten t sinus tachycardia. Will increase the dose of BB, if he remains tachycardic will consider Corlanor. Melani Lynn MD Cardiology:Recent ex acerbation with rash and joint pain. He reports feeling much better after treatment with abx and steroids. Melani Lynn MD Cardiology:Diet cont rolled. Continues on lisinopril for renal protection. Melani Lynn MD Cardiology:Continues on Crestor and Zetia. Melani Lynn MD Cardiology:BP contro l is satisfactory. Advised reduced sodium intake and weight reduction. Melani Lynn MD Cardiology:No recurr ence. Effort tolerance stable. Melani Lynn MD Cardiology:102 bpm o n EKG today. He continues on 12.5 mg Metoprolol BID due to previous orthostasis on 25 mg. He has been advised that if he is symptomatic with palpitations, he can take 25 mg Metoprolol. Melani Lynn MD Cardiology:Weight loss advised. Misha Diaz Cardiology:STRONGLY ENCOURAGED TO STOP SMOKING; SMOKING CESSATION TECHNIQUES DISCUSSED. Misha Diaz Cardiology:Per patimitra nt, is stable. Further management as per yourself. Misha Cardiology:Continues on Crestor and Zetia. He would benefit from a lipid panel. Will request labs from your office. Cardiology:Diet cont rolled. Continues on lisinopril for renal protection. He would benefit from a repeat A1c. Will request labs from your office. Cardiology:Denies of any shortness of breath. Continues on Trelegy. Cardiology:Blood pre ssure control is satisfactory. Advised reduced sodium intake and routine monitoring of the blood pressure. We aim for less than 130/80. Cardiology:Persisten t sinus tachycardia, the etiology remains unclear. Continues on Metoprolol 12.5mg BID. He was previously unable to tolerate Metoprolol 25mg due to orthostatic hypotension. His last stress test was normal and his EF on his last echo was 65%. Will get the recent blood tests from your office. As he is asymptomatic, no change in medications has been made. There are no thyroid functions available and if this has not been done, will arrange for him to have it done. Cardiology:STRONGLY ENCOURAGED TO STOP SMOKING; SMOKING CESSATION TECHNIQUES DISCUSSED. Cardiology:Weight loss advised Britney joel Cardiology:Continues to have flare ups. Further managment as per yourself. Cardiology:Diet cont rolled. Continues on lisinopril for renal protection. He would benefit from a repeat A1c. Cardiology:Denies of any shortness of breath. Continues on Trelegy. Cardiology:Continues on Crestor and Zetia. He would benefit from a lipid panel. Cardiology:Blood pre ssure elevated today. Patient reports his home blood pressure is typically well controlled. He continues on Lisinopril. Advised to monitor his blood pressure and call our office if consistently above 130/80. Cardiology:Persisten t. Continues on Metoprolol. Cardiology: D iet controlled. Continues on lisinopril for renal protection. Will request labs from your office. Melani Lynn MD Cardiology: C ontinues on Crestor and Zetia. Will request labs from your office. Melani Lynn MD Cardiology:Continues to have joint pains. Further managment as per yourself. Melani Lynn MD Cardiology:No recurr ence. Effort tolerance stable. His recent stress test and echocardiogram were normal and the patient has been reassured. Melani Lynn MD Cardiology:Blood pre ssure elevated today. Patient reports his home blood pressure is typically well controlled. He continues on Lisinopril. His recent stress test and echocardiogram were normal and the patient has been reassured. Melani Lynn MD Cardiology:Persistent. Continues on Metoprolol. Melani Lynn MD Cardiology:Continues to have joint pains. Further managment as per yourself. Melani Lynn MD Cardiology:STRONGLY ENCOURAGED TO STOP SMOKING; SMOKING CESSATION TECHNIQUES DISCUSSED. Melani Lynn MD Cardiology:Blood pressure contro l is satisfactory. Melani Lynn MD Cardiology:Continues on Crestor and Zetia. Melani Lynn MD Cardiology:Diet cont rolled. Continues on lisinopril for renal protection. Melani Lynn MD Cardiology:Chest dis comfort and diaphoresis in a patient with risk factors for CAD. Will arrange echocardiogram and stress test. Melani Lynn MD Cardiology:Persisten t. He continues on Metoprolol. Reduced intake of stimulants including caffeine and alcohol advised. Melani Lynn MD Cardiology:Weight loss advised. Melani Lynn MD Cardiology:Social smoker. Counse led to quit. Melani Lynn MD Cardiology:Will add Lisinopril 5mg daily. Dietary compliance and weight loss advised. Melani Lynn MD Cardiology:Blood pre ssure elevated. As patient has elevated HgbA1c, he will benefit from an CHRISTOFER-inhibitor. Will add Lisinopril 5mg daily. Patient will monitor his blood pressure. Melani Lynn MD Cardiology:Persisten t. In sinus tach today with a rate of 119. Normal TSH 06/2017. Patient has not taken beta lowell today. Patient reports his heart rate is rarely below 95. Encouraged medication compliance. Patient advised to keep a log of heart rate and blood pressure which will be reviewed at his next appointment. Melani Lynn MD Cardiology Follow up :Weight los s advised. Melani Lynn MD Cardiology Follow up :Stable. On bronchodilators. Melani Lynn MD Cardiology Follow up :Not on medications. Weight loss and dietary restrictions advised. Melani Lynn MD Cardiology Follow up :As his triglycerides remain elevated, he has been advised to reduces his carbohydrate intake including beer. He continues on Tricor and Crestor. His fish oil has been increased to 4 capsules daily. Melani Lynn MD Cardiology Follow up :Etiology is unclear. This may well be related to the increased intake of alcohol. I have advised him to reduce his alcohol intake. He continues on Metoprolol Tartrate half tab BID. His last Telesentry montior showed sinus tachycardia but no other significant arrhythmia. Melani Lynn MD Cardiology Follow up :No further recurrence. Melani Lynn MD Cardiology:A1c 6.2% consistent with above diagnosis. Weight reduction and dietary modifications have been advised. Melani Lynn MD Cardiology:Weight lo ss advised. Melani Lynn MD Cardiology:He says he has been a dequately treated. Melani Lynn MD Cardiology:On Cresto r and Tricor. Melani Lynn MD Cardiology:On Breo Ellipta. Varun Lynn MD Cardiology:Blood pressure contro l is satisfactory. Melani Lynn MD Cardiology:No recurrence. Leona Lynn MD Cardiology:His sympt oms are related to cough, and it's possible that his syncope was cough-induced. If his symptoms persist with no obvious explanation, will arrange tilt table test. Melani Lynn MD Cardiology:Weight lo ss advised. We will give him a home sleep study at his next visit. Melani Lynn MD Cardiology:STRONGLY ENCOURAGED TO STOP SMOKING; SMOKING CESSATION TECHNIQUES DISCUSSED. Melani Lynn MD Cardiology:On Crestor and Tricor . Melani Lynn MD Cardiology:Unclear e tiology. We await recent blood results and will start him on low dose metoprolol for rate control. Melani Lynn MD Cardiology:Etiology unclear. Cough induced, vasovagal, arrhythmia? Today he had a systolic blood pressure drop of 28mmHg on standing with reproducible symptoms of lightheadedness. His lisinopril and carvedilol have both been discontinued. Telesentry monitor has been placed. Carotid doppler will also be done, and echocardiogram. Melani Lynn MD routine: H is updated medication list for this problem includes: Carvedilol 12.5 Mg Tabs (Carvedilol) ..... 1 tab twice daily Aspirin 81 Mg Tabs (Aspirin) ..... One tab. daily Lisinopril 20 Mg Tabs (Lisinopril) ..... One tab daily BP today: / Prior BP: 100/54 (08/12/2012) H olter Monitor: Holter monitor shows the patient has sinus rhythm, most of the time. sinus tachycardia. occasional PVC and 1 episode of ventricular couplets. No sustained ventricular tachycardia, PAT, atrial flutter, fibrillations, or any bradyarrhythmias seen. - [facility] (08/18/2011) N uclear Stress Findings: 1. Normal Raulito protocol exercise tolerance test. 2 . Normal left ventricular size and function with a calculated ejection fraction of 57%. 3 . Myocardial scintigraphy is normal without evidence for previous myocardial infarction or reversible ischemia. - (07/15/2012) C ardiac Cath: Normal coronary arteries. Normal left ventricular systolic function. 6-[place] Angio-Seal placement. - [facility] (12/24/2011) Gonzalez Monahan MD routine: H is updated medication list for this problem includes: Crestor 10 Mg Tabs (Rosuvastatin calcium) ..... One tab. daily Tricor 145 Mg Tabs (Fenofibrate) ..... One tab. daily BP today: / Prior BP: 100/54 (08/12/2012) Gonzalez Monahan MD routine: H is updated medication list for this problem includes: Carvedilol 12.5 Mg Tabs (Carvedilol) ..... 1 tab twice daily Aspirin 81 Mg Tabs (Aspirin) ..... One tab. daily Lisinopril 20 Mg Tabs (Lisinopril) ..... One tab daily Prior BP: 100/54 (08/12/2012) Gonzalez Monahan MD routine: H is updated medication list for this problem includes: Carvedilol 12.5 Mg Tabs (Carvedilol) ..... 1 tab twice daily Aspirin 81 Mg Tabs (Aspirin) ..... One tab. daily Lisinopril 20 Mg Tabs (Lisinopril) ..... One tab daily BP today: / Prior BP: 100/54 (08/12/2012) N uclear Stress Findings: 1. Normal Raulito protocol exercise tolerance test. 2 . Normal left ventricular size and function with a calculated ejection fraction of 57%. 3 . Myocardial scintigraphy is normal without evidence for previous myocardial infarction or reversible ischemia. - (07/15/2012) C ardiac Cath: Normal coronary arteries. Normal left ventricular systolic function. 6-[place] Angio-Seal placement. - [facility] (12/24/2011) C arotid Doppler/Duplex: Normal bilateral both carotid and vertebral systems. - [facility] (12/24/2011) Gonzalez Monahan MD routine: B P today: 100/54 Prior BP: 151/98 (07/08/2012) H olter Monitor: Holter monitor shows the patient has sinus rhythm, most of the time. sinus tachycardia. occasional PVC and 1 episode of ventricular couplets. No sustained ventricular tachycardia, PAT, atrial flutter, fibrillations, or any bradyarrhythmias seen. - [facility] (08/18/2011) N uclear Stress Findings: 1. Normal Raulito protocol exercise tolerance test. 2 . Normal left ventricular size and function with a calculated ejection fraction of 57%. 3 . Myocardial scintigraphy is normal without evidence for previous myocardial infarction or reversible ischemia. - (07/15/2012) C ardiac Cath: Normal coronary arteries. Normal left ventricular systolic function. 6-[place] Angio-Seal placement. - [facility] (12/24/2011) His updated medication list for this problem includes: Carvedilol 12.5 Mg Tabs (Carvedilol) ..... 1 tab twice daily Aspirin 81 Mg Tabs (Aspirin) ..... One tab. daily Lisinopril 20 Mg Tabs (Lisinopril) ..... One tab daily Gonzalez Monahan MD routine: B P today: 100/54 Prior BP: 151/98 (07/08/2012) His updated medication list for this problem includes: Crestor 10 Mg Tabs (Rosuvastatin calcium) ..... One tab. daily Tricor 145 Mg Tabs (Fenofibrate) ..... One tab. daily Gonzalez Monahan MD routine: B P today: 100/54 P rior BP: 151/98 (07/08/2012) His updated medication list for this problem includes: Carvedilol 12.5 Mg Tabs (Carvedilol) ..... 1 tab twice daily Aspirin 81 Mg Tabs (Aspirin) ..... One tab. daily Lisinopril 20 Mg Tabs (Lisinopril) ..... One tab daily Gonzalez Monahan MD routine: B P today: 100/54 Prior BP: 151/98 (07/08/2012) N uclear Stress Findings: 1. Normal Raulito protocol exercise tolerance test. 2 . Normal left ventricular size and function with a calculated ejection fraction of 57%. 3 . Myocardial scintigraphy is normal without evidence for previous myocardial infarction or reversible ischemia. - (07/15/2012) C ardiac Cath: Normal coronary arteries. Normal left ventricular systolic function. 6-[place] Angio-Seal placement. - [facility] (12/24/2011) C arotid Doppler/Duplex: Normal bilateral both carotid and vertebral systems. - [facility] (12/24/2011) His updated medication list for this problem includes: Carvedilol 12.5 Mg Tabs (Carvedilol) ..... 1 tab twice daily Aspirin 81 Mg Tabs (Aspirin) ..... One tab. daily Lisinopril 20 Mg Tabs (Lisinopril) ..... One tab daily Gonzalez Monahan MD follow up: H is updated medication list for this problem includes: Carvedilol 6.25 Mg Tabs (Carvedilol) ..... 1 tab twice daily Aspirin 81 Mg Tabs (Aspirin) ..... One tab. daily Lisinopril 20 Mg Tabs (Lisinopril) ..... One tab daily Gonzalez Monahan MD follow up: H is updated medication list for this problem includes: Crestor 10 Mg Tabs (Rosuvastatin calcium) ..... One tab. daily Tricor 145 Mg Tabs (Fenofibrate) ..... One tab. daily Gonzalez Monahan MD follow up: H is updated medication list for this problem includes: Carvedilol 6.25 Mg Tabs (Carvedilol) ..... 1 tab twice daily Aspirin 81 Mg Tabs (Aspirin) ..... One tab. daily Lisinopril 20 Mg Tabs (Lisinopril) ..... One tab daily Orders: Mitra KG ([id number]) Gonzalez Monahan MD follow up: H is updated medication list for this problem includes: Carvedilol 6.25 Mg Tabs (Carvedilol) ..... 1 tab twice daily Aspirin 81 Mg Tabs (Aspirin) ..... One tab. daily Lisinopril 20 Mg Tabs (Lisinopril) ..... One tab daily Orders: Victoria jones Test - Nuclear ([id number]) Gonzalez Monahan MD new patient: H is updated medication list for this problem includes: Carvedilol 6.25 Mg Tabs (Carvedilol) ..... 1 tab twice daily Aspirin 81 Mg Tabs (Aspirin) ..... One tab. daily Lisinopril 10 Mg Tabs (Lisinopril) ..... One tab daily BP today: 145/92 Gonzalez Monahan MD new patient: B P today: 145/92 Prior BP: / () His updated medication list for this problem includes: Crestor 10 Mg Tabs (Rosuvastatin calcium) ..... One tab. daily Tricor 145 Mg Tabs (Fenofibrate) ..... One tab. daily Gonzalez Monahan MD new patient: H is updated medication list for this problem includes: Carvedilol 6.25 Mg Tabs (Carvedilol) ..... 1 tab twice daily Aspirin 81 Mg Tabs (Aspirin) ..... One tab. daily Lisinopril 10 Mg Tabs (Lisinopril) ..... One tab daily BP today: 145/92 Prior BP: / () N uclear Stress Findings: 1. Normal Raulito protocol exercise tolerance test. 2 . Abnormal left ventricular size and function with a calculated ejection fraction of 43%. 3 . Myocardial scintigraphy is normal without evidence for previous myocardial infarction or reversible ischemia. (08/09/2011) C ardiac Cath: Normal coronary arteries. Normal left ventricular systolic function. 6-[place] Angio-Seal placement. - [facility] (12/24/2011) Orders: E KG ([id number]) H olter Monitor 24 Hr ([id number]) Gonzalez Monahan MD Date Name Carotid Duplex Bilat eral Stress Regadenoson Monitor - Telemetry (Mobile Cardiac) Complete Echo TSH, free T4, total T3 CBC (H/H, RBC, INDIC ES, WBC, PLT) COMPREHENSIVE METABO LIC PANEL, W/EGFR HEMOGLOBIN A1c LIPID PANEL PROBNP, N TERMINAL Arterial Duplex Bi-L ower EX Arterial Duplex RLE Arterial Duplex LLE Arterial - SENSILASE Stress Exercise Card iolite Complete Echo DLCO - 51475 FRC - 68101 FVC - 52588 Carotid Duplex Bilat eral Complete Echo Mobile Cardiac Tele Stress Test - Nuclea r Holter Monitor 24 Hr HISTORY OF PROCEDURES Procedure Date Procedure Name Provider Procedure Notes S tatus EKG Melani Lynn MD complet ed EKG Melani Lynn MD complet ed EKG Melani Lynn MD complet ed EKG Melani Lynn MD complet ed EKG Melani Lynn MD complet ed EKG Melani Lynn MD complet ed Stress EKG Yamel ramirez MD completed Cardiolite, 2 units Melani Lynn MD completed SPECT Images Melani Lynn MD compl eted Stress EKG Yamel ramirez MD completed Cardiolite, 2 units Melani Lynn MD completed SPECT Images Melani Lynn MD compl eted EKG Melani Lynn MD complet ed EKG Melani Lynn MD complet ed EKG Melani Lynn MD complet ed EKG Melani Lynn MD complet ed FVC / MVV with bronchodilator - 69307 Melani Lynn MD completed FRC - 39498 Melani Lynn MD comple adolfo SpO2 - 96473 Melani Lynn MD compl eted DLCO - 10771 Melani Lynn MD compl eted Mobile Cardiac Telem etry - Tech Melani Lynn MD completed Mobile Cardiac Telem etry - Prof Melani Lynn MD completed EKG Melani Lynn MD complet ed DEBORAH Monahan MD complete d DEBORAH Monahan MD complete d DEBORAH Monahan MD complete d
[2024-09-11 11:35] LABS: Basophils Absolute Auto 0.1 K/mm3 (0.0-0.1); Basophils Percent Auto 0.7 % (0.2-1.2); Eosinophils Absolute Auto 0.1 K/mm3 (0-0.3); Eosinophils Percent Auto 1.3 % (0-4.4); Hematocrit 48.1 % (42.0-52.0); Immature Granulocyte Absolute 0.01 K/mm3 (0.00-0.031); Immature Granulocyte Percent A 0.1 % (0-0.5); Lymphocytes Absolute Auto 1.89 K/mm3 (0.9-3.2); Lymphocytes Percent Auto 22.9 % (18.3-44.2); Mean Corpuscular HGB Conc 33.3 g/dl (32-36); Mean Corpuscular Hemoglobin 30.5 pg (26-34); Mean Corpuscular Volume 91.8 fl (80-100); Monocytes Absolute Auto 0.5 K/mm3 (0.1-0.6); Monocytes Percent Auto 6.2 % (2.6-8.5); Neutrophils Absolute Auto 5.7 K/mm3 (1.3-6.7); Neutrophils Percent Auto 68.8 % (45.5-73.1); Platelet Count Result 158 k/mm3 (150-375); Red Blood Count 5.24 M/mm3 (4.6-6.20); Red Cell Distribution Width 14.2 % (11.5-14.5); White Blood Count 8.3 K/mm3 (4.5-10.0)
[2024-09-11 11:43] LABS: Alanine Aminotransferase 23 U/L (6-50); Albumin Level 4.6 g/dL (3.5-5.1); Alkaline Phosphatase 75 U/L (38-126); Anion Gap 11 mmol/L (4-12); Aspartate Amino Transferase 23 U/L (17-59); Bilirubin,Total 0.8 mg/dL (0.2-1.3); Blood Urea Nitrogen 20 mg/dL (9-20); Calcium 9.7 mg/dL (8.4-10.2); Carbon Dioxide 25 mmol/L (22-30); Chloride 101 mmol/L (98-107); Estimated Glomerular Filt Rate > 60; Glucose 135 mg/dL (65-110); Lipase 90 U/L (23-300); Potassium 4.3 mmol/L (3.4-5.0); Sodium 137 mmol/L (137-145)
--- OUTSIDE RECORDS SUMMARY | 2024-09-11 11:45 | XMS_ITS | Continuity of Care Document ---
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 [address], [place], [address], [place]. tel:[phone] Family History Family Member Type Diagnosis Age At Onset No Information Payers Payer name Insurance type Covered republican ID Authorcharitya ticarole(s) [employer] CI [id number] Social History Type Description Quantity Date Captured [...]
--- OUTSIDE RECORDS SUMMARY | 2024-09-11 11:45 | XMS_ITS | CONTINUITY OF CARE DOCUMENT ---
Author Name irma solis Address Unknown Organization [facility] Address [address] [place] [address] Phone [phone] Care Team Providers Care Livestock Commission Agent Name Role Phone Shane JAIMES, Melani Unavailable [phone] Francisco TELEPHONE LINEMAN-BC, Gisell Murphy Unavailable Francisco TELEPHONE LINEMAN-BC, Gisell Jeffrey Unavailable PROBLEMS Condition Status Date [...] In-person encounter Office Visit Melani Lynn MD [facility] Dizziness and lightheadedness - In-person encounter Office Visit Melani Lynn MD [facility] Tobacco abuseTobacco use - In-person encounter Office Visit Melani Lynn MD [facility] PAD - In-person encounter Office Visit Melani Lynn MD [facility] - In-person encounter Office Visit Melani Lynn MD [facility] - In-person encounter Office Visit Melani Lynn MD [facility] - In-person encounter Office Visit Melani Lynn MD [facility] SINUS TACHYCARDIA-07/29 HOLTER SRHTN ESSENTIAL-07/02 NUC NEGHTN essentialSinus tachycardia - In-person encounter Office Visit Melani Lynn MD [facility] - In-person encounter Office Visit Melani Lynn MD [facility] Diabetes mellitus, Type II - A1c 6.3% 01/2018Hyperglycemia - In-person encounter Office Visit Melani Lnyn MD [facility] DYSLIPIDEMIA - In-person encounter Office Visit Melani Lynn MD [facility] Diabetes mellitus, Type II - A1c 6.3% 01/2018COPD - mild - In-person encounter Office Visit Melani Lynn MD [facility] SyncopeLyme diseaseDyspnea on exertion - In-person encounter Office Visit Gonzalez Monahan MD [facility] - In-person encounter Office Visit Gonzalez Monahan MD [facility] - In-person encounter Office Visit Gonzalez Monahan MD [facility] CHEST PAIN-12/29 CATH NL - In-person encounter Office Visit Gonzalez Monahan MD [facility] SINUS TACHYCARDIA-07/29 HOLTER SRHyperlipidemiaHTN ESSENTIAL-07/02 NUC NEGTobacco abuseOBESITY VITAL SIGNS Date Observation Value Provider Body Mass Index (Ratio) 35.14 kg/m2 Varun Lynn MD oxygen saturation, oximetry 95 % Glory Butler pulse rate 88 /min Glory Butler respiratory rate E&M 16 /min Catheri ne Butler weight E&M 238 [lb_av] Glory Juice blood [...] blood pressure, diastolic 80 mm[Hg] Brigida kumari D[place]el blood pressure, systolic 132 mm[Hg] Raul carty [place] oxygen saturation, oximetry 99 % Christine Bryan respiratory rate E&M 16 /min Kendra mitra [place] pulse rate 104 /min Christine menjivar weight [...] Maureen Chaudhary blood pressure, cuff size regular Joaquin delaney Neena respiratory rate E&M 16 /min Maureen Chaudhary weight E&M 225 [lb_av] Maureen Chaudhary height E&M 69 [in_i] Maureen Chaudhary Body Mass Index (Ratio) 31.89 kg/m2 Sukumar Diaz blood pressure, cuff size regular Kr isty Quincy blood pressure, diastolic 80 mm[Hg] Kr isty Kelly blood pressure, systolic 130 mm[Hg] Kri sty Quincy pulse rate 106 /min Gifty Kelly oxygen saturation, oximetry 97 % Gifty Kelly respiratory rate E&M 18 /min Gifty Kelly weight E&M 216 [lb_av] Gifty Quincy height E&M 69 [in_i] Gifty Quincy Body Mass Index (Ratio) 33.13 kg/m2 Sukumar Morante blood pressure, cuff size regular Kr isty Quincy blood pressure, diastolic 80 mm[Hg] Kr isty Kelly blood pressure, systolic 142 mm[Hg] Kri sty Quincy respiratory rate E&M 18 /min Gifty Quincy pulse rate 107 /min Gifty Quincy oxygen saturation, oximetry 97 % Gifty Kelly weight E&M 224.4 [lb_av] Gifty Kelly height E&M 69 [in_i] Gifty Quincy Body Mass Index (Ratio) 33.96 kg/m2 Varun [...] Kelly respiratory rate E&M 17 /min Gifty Quincy pulse rate 101 /min Gifty Kelly blood pressure, cuff size regular Kr isty Quincy weight E&M 231 [lb_av] Gifty Quincy height E&M 69 [in_i] Gifty Quincy Body Mass Index (Ratio) 35.44 kg/m2 Varun [...] rri Magi blood pressure, systolic 140 mm[Hg] Sadie bishnu Sow oxygen saturation, oximetry 98 % Glenna Magi respiratory rate E&M 20 /min Glenna kelly pulse rate 105 /min Glenna Quique [facility] weight E&M 238 [lb_av] Glenna Quique er height E&M 69 [in_i] Glenna Quique [facility] Body Mass Index (Ratio) 35.14 kg/m2 Maxwell Kapadia respiratory rate E&M 16 /min [facility], diastolic 70 mm[Hg] [facility], systolic 120 mm[Hg] Milagro cha Ferreira oxygen saturation, oximetry 95 % Betty Ferreira pulse rate 105 /min Betty Ferreira weight E&M 238 [lb_av] [facility] height E&M 69 [in_i] [facility] Fer[facility] Body Mass Index (Ratio) 35.14 kg/m2 [...] stity Johnathan oxygen saturation, oximetry 95 % [facility] Johnathan respiratory rate E&M 16 /min Jasiel [...] RN oxygen saturation, oximetry 92 % Jens Orozco RN respiratory rate E&M 17 /min Jens [...] High 4 cholesterol, serum 190 mg/dL [employer] [phone]/12/2 4 platelet count 155 X10E3/UL [employer] 800-410 4787/12/2 4 red blood cell distribution width 12.4 [...] High 4 sodium, serum 140 mmol/L [employer] [phone]/12/2 4 urea nitrogen/creatinine ratio, serum 14 [employer] [...] TABLET completed 1 tab twice daily - Melani Lynn MD SOCIAL HISTORY Date Observation Value Provider social history reviewed E&M hannah stovall - no changes required Melani Lynn MD social history E&M Marital Statu s: Jeffrey faustin with family/friends J ob Status: Employed full-time Smoking History: Vinicio ribeiro is a former smoker. Melani Lynn MD seatbelt usage 100 % Glory Mickie s caffeine use, averag e drinks per day yes Glory Butler passive cigarette sm liam exposure yes Glory Butler smoking, date started 1987 Cather ine Butler smoking history, tot al pack/year 26 Glory Juice smoking history, tot al pack/day 1 Glory Butler cigarette use yes Glory Juice smoking status [...] status Current every day smoker Alina johnston Drexel seatbelt usage 100 % [facility] caffeine use, averag e drinks per day yes Chrsitine Drexel passive cigarette sm liam exposure yes Christine Drexel smoking/tobacco cess ation, patient education and counseling yes Christine Drexel smoking, date started 1987 Adam bradley Drexel smoking history, tot al pack/year 26 Christine Drexel smoking history, tot al pack/day 1 Christine Drexel cigarette use yes [facility] seatbelt usage 100 % Melani sanchez [...] Lynn MD seatbelt usage 100 % Gifty Quincy caffeine use, averag e drinks per day yes Gifty Quincy passive cigarette sm liam exposure yes Gifty Kelly smoking/tobacco cess ation, patient education and counseling yes Gifty Quincy smoking, date started 1987 Gifty Quincy smoking history, tot al pack/year 26 Gifty Quincy smoking history, tot al pack/day 1 Gifty Quincy cigarette use yes Gifty Kelly smoking status [...] ation, patient education and counseling yes Gifty Quincy smoking, date started 1987 Gifty Kelly smoking history, tot al pack/year 26 Gifty Kelly smoking history, tot al pack/day 1 Gifty Kelly cigarette use yes Gifty Quincy smoking status Current every day smoker K [...] Gifty Lopesby smoking, date started 1987 Gifty Quincy smoking history, tot al pack/year 26 Gifty Quincy smoking history, tot al pack/day 1 Gifty [...] Brandie TylerLuluChau cigarette use yes Brandie Jayson Davalos smoking status Current every day smoker Mitra [...] % Chastity Hogu e alcohol counseling [facility] alcohol use, average drinks per day social [facility] Johnathan alcohol use yes [facility] caffeine use, averag e drinks per day yes [facility] drug use none [facility] smoking/tobacco cess ation, patient education and counseling yes [facility] passive cigarette sm liam exposure yes [facility], [facility], tot al pack/year 26 Chastity Johnathan smoking history, tot al pack/day 1 Chastity Johnathan cigarette use yes [facility] smoking status Current every day smoker [...] Fall Assessment not done medical c ontraindication [facility] MENTAL STATUS Date Observation Value Provider [...] Payer name Policy type / Coverage type [place] [employer] G[employer] O HMO [id number] ADVANCE DIRECTIVES Name Date DISCUSSED - NO DECISION MADE TREATMENT PLAN Date Name Performer [id number],C,D enies of any symptoms at present. The sensilase was mildly abnormal last time it was checked. Melani Lynn MD [id number],N,E pisodes of dizziness on standing. Infrequent episodes and no obvious cause is known. We will check carotid doppler, stress test, and obtain 7 day monitor. Patient was advised to increase water intake. Patient was instructed to record BP regularly while standing up, and record BP when episodes of dizziness happen. Melani Lynn MD [id number],C,In remission. Melani Lynn MD [id number],C,Uses trelegy as needed. Melani Lynn MD [id number],C,On rosuvastat in, zetia. Melani Lynn MD [id number],C,D iet controlled. Continues on lisinopril. Melani Lynn MD [id number],S, P atient reports that he only smokes when he has a beer. Melani Lynn MD [id number],S, F lareups usually occur in summer. Responds to abx and steroids. Melani Lynn MD [id number],S, C ontinues on Crestor and Zetia. Melani Lynn MD [id number],S, N o recurrence. Effort tolerance stable. Melani Lynn MD [id number],S, D iet controlled. Continues on lisinopril for renal protection. Melani Lynn MD [id number],S, B P control is satisfactory. Advised reduced sodium intake and weight reduction. Melani Lynn MD [id number],S, R ecent ABIs were normal. Sensilase showed reduced distal pressures with adequate perfusion for wound healing. His leg pain is likely related to long-term back issues. Melani Lynn MD [id number],S, N o further recurrence. Melani Lynn MD [id number],S, S TRONGLY ENCOURAGED TO STOP SMOKING; SMOKING CESSATION TECHNIQUES DISCUSSED. Melani Lynn MD [id number],S, D enies of any shortness of breath. Continues on Trelegy. Melani Lynn MD [id number],C, C ontinues on Crestor and Zetia. Melani Lynn MD [id number],C, D iet controlled. Continues on lisinopril for renal protection. Melani Lynn MD [id number],C,H is symptoms are not consistent with PAD. The dorsalis pedis and PT are palpable on both feet. Will repeat ABIs and Sensilase. Melani Lynn MD [id number],C,P ersistent sinus tachycardia. Will increase the dose of BB, if he remains tachycardic will consider Corlanor. Melani Lynn MD [id number],C,R ecent exacerbation with rash and joint pain. He reports feeling much better after treatment with abx and steroids. Melani Lynn MD [id number],C,D iet controlled. Continues on lisinopril for renal protection. Melani Lynn MD [id number],C,Continues on Crestor and Zetia. Melani Lynn MD [id number],C,B P control is satisfactory. Advised reduced sodium intake and weight reduction. Melani Lynn MD [id number],C,N o recurrence. Effort tolerance stable. Melani Lynn MD [id number],C,1 02 bpm on EKG today. He continues [...] Lynn MD Cardiology:Continues on Crestor and Zetia. Mleani Lynn MD Cardiology:BP contro l is satisfactory. [...] reduction and dietary modifications have been advised. Melnai Lynn MD Cardiology:Weight lo ss advised. Melani [...] flutter, fibrillations, or any bradyarrhythmias seen. - [facility] (08/18/2011) N uclear Stress Findings: 1. Normal Raulito protocol exercise tolerance test. 2 . Normal left ventricular size and function with a calculated ejection fraction of 57%. 3 . Myocardial scintigraphy is normal without evidence for previous myocardial infarction or reversible ischemia. - (07/15/2012) C ardiac Cath: Normal coronary arteries. Normal left ventricular systolic function. 6-Surinamese Angio-Seal placement. - [facility] (12/24/2011) Gonzalez Monahan MD routine: H is [...] coronary arteries. Normal left ventricular systolic function. 6-Surinamese Angio-Seal placement. - [facility] (12/24/2011) C arotid Doppler/Duplex: Normal bilateral both carotid and vertebral systems. - [facility] (12/24/2011) Gonzalez Monahan MD routine: B P today: 100/54 Prior BP: 151/98 (07/08/2012) H olter Monitor: Holter monitor shows the patient has sinus rhythm, most of the time. sinus tachycardia. occasional PVC and 1 episode of ventricular couplets. No sustained ventricular tachycardia, PAT, atrial flutter, fibrillations, or any bradyarrhythmias seen. - [facility] (08/18/2011) N uclear Stress Findings: 1. Normal Raulito protocol exercise tolerance test. 2 . Normal left ventricular size and function with a calculated ejection fraction of 57%. 3 . Myocardial scintigraphy is normal without evidence for previous myocardial infarction or reversible ischemia. - (07/15/2012) C ardiac Cath: Normal coronary arteries. Normal left ventricular systolic function. 6-Surinamese Angio-Seal placement. - [facility] (12/24/2011) His updated medication list for this [...] coronary arteries. Normal left ventricular systolic function. 6-Surinamese Angio-Seal placement. - [facility] (12/24/2011) C arotid Doppler/Duplex: Normal bilateral both carotid and vertebral systems. - [facility] (12/24/2011) His updated medication list for this [...] ..... One tab daily Orders: Mitra KG ([id number]) Gonzalez Monahan MD follow up: H is updated medication list for this problem includes: Carvedilol 6.25 Mg Tabs (Carvedilol) ..... 1 tab twice daily Aspirin 81 Mg Tabs (Aspirin) ..... One tab. daily Lisinopril 20 Mg Tabs (Lisinopril) ..... One tab daily Orders: Victoria jones Test - Nuclear ([id number]) Gonzalez Monahan MD new patient: H is [...] coronary arteries. Normal left ventricular systolic function. 6-Surinamese Angio-Seal placement. - [facility] (12/24/2011) Orders: E KG ([id number]) H olter Monitor 24 Hr ([id number]) Gonzalez Monahan MD Date Name Carotid Duplex [...] Exercise Card iolite Complete Echo DLCO - 13298 FRC - 00240 FVC - 85077 Carotid Duplex Bilat eral Complete Echo Mobile [...] ed FVC / MVV with bronchodilator - 64764 Melani Lynn MD completed FRC - 24967 Melani Lynn MD comple adolfo SpO2 - 29762 Melani Lynn MD compl eted DLCO - 91251 Melani Lynn MD compl eted Mobile Cardiac Telem etry - Tech Melani Lynn MD completed Mobile Cardiac Telem etry - Prof Melani Lynn MD completed EKG Melani Lynn MD complet ed DEBORAH Monahan MD complete d DEBORAH Monahan MD complete d DEBORAH Monahan MD complete d
[2024-09-11 12:45] VITALS: BP 138/84; PULSE 94; RESP 20; TEMP 36.4; O2SAT 96
--- NOTE | 2024-09-11 12:56 | ED_ITS ---
HPI - General Adult General Chief complaint: Abdominal Pain Stated complaint: L. side abdominal pain Time Seen by Provider: 09/11/24 11:17 History of Present Illness HPI narrative: 64-year-old male presents emergency department for evaluation for left lower quad abdominal pain. Patient reports symptoms started 2 days ago. Patient began having some rectal bleeding last night. Patient does report a prior history of diverticulitis. Patient is not on any blood thinners. Related Data Home Medications ?Medication ?Instructions ?Recorded ?Confirmed ?Last Taken ?Type albuterol sulfate 90 mcg/actuation 2 inh inhalation Q4H PRN Wheezing 02/10/23 02/10/23 Unknown History aerosol inhaler benzonatate 100 mg capsule 100 mg PO TID 02/10/23 02/10/23 Unknown History celecoxib 200 mg capsule 200 mg PO DAILY 02/10/23 02/10/23 Unknown History duloxetine 30 mg capsule,delayed 30 mg PO DAILY 02/10/23 02/10/23 Unknown History release ezetimibe 10 mg tablet 10 mg PO DAILY 02/10/23 02/10/23 Unknown History lansoprazole 30 mg capsule,delayed 30 mg PO DAILY 02/10/23 02/10/23 Unknown History release lisinopril 5 mg tablet 5 mg PO DAILY 02/10/23 02/10/23 Unknown History metoprolol tartrate 25 mg tablet 12.5 mg PO BID 02/10/23 02/10/23 Unknown History prednisone 20 mg tablet 40 mg PO DAILY 02/10/23 02/10/23 Unknown History rosuvastatin 40 mg tablet 40 mg PO HS 02/10/23 02/10/23 Unknown History Allergies Allergy/AdvReac Type Severity Reaction Status Date / Time Penicillins Allergy Unknown Verified 07/04/21 15:40 Review of Systems 2 Review of Systems: All systems reviewed & are unremarkable except as noted in HPI and below PMFSH Past Medical History Medical History COPD (chronic obstructive pulmonary disease) Nicotine dependence, cigarettes, with other nicotine-induced disorders Personal history of noncompliance with medical treatment and regimen Recurrent syncope Tobacco abuse counseling Family History Family History Mother Family history of arthritis Social History Social History Smoking packs per day: 0.5 Smoking cigarettes per day: 10.0 Smoking status: Light tobacco smoker Second hand tobacco smoke exposure: No Alcohol intake: current Substance use: former Substance use type: marijuana Lack of Transportation: No Lack of Food: Never True Current Housing: I Have Housing Concerned About Future Housing: No Difficulty Paying Gas/Electric Bills: No Difficulty Paying for Meds: No Currently Unemployed: No Education: Trade/Vocational Certificate Difficulty w/ Childcare or Family Care: No Spiritual care concerns: No Exam 2 Narrative: APPEARANCE: Well appearing, no pain, no distress, well-nourished. HEAD: normocephalic, atraumatic. EYES: PERRLA/EOMI, conjunctivae clear. NOSE: Normal no drainage EARS:TMS clear with good light reflex. THROAT: Pharynx clear, no exudate. NECK: Supple. No adenopathy, no masses. RESPIRATORY: Airway patent, respirations nonlabored. Clear to auscultation bilaterally, no rales, rhonchi, wheezing. CARDIOVASCULAR: Regular rate and rhythm without murmurs rubs or gallops. ABDOMINAL: Lower abdominal tenderness to palpation MUSCULOSKELETAL: Moves all extremities. Strength/ROM intact, No edema, No calf tenderness. NEURO: Alert. Cranial nerves II through XII intact. Good gait. Good coordination SKIN: Warm, dry. Normal Color Course Vital Signs Vital signs: Vital Signs Temperature 97.5 F L 09/11/24 11:18 Pulse Rate 115 H 09/11/24 11:18 Respiratory Rate 14 09/11/24 11:18 Blood Pressure 134/79 09/11/24 11:18 Pulse Oximetry 95 09/11/24 11:18 Temperature 97.7 F 09/11/24 14:01 Pulse Rate 83 09/11/24 14:01 Respiratory Rate 16 09/11/24 14:01 Blood Pressure 132/88 09/11/24 14:01 Pulse Oximetry 95 09/11/24 14:01 Medical Decision Making [facility] Narrative Medical decision making narrative: 64-year-old male presents to the emergency department for evaluation for lower abdominal pain. Patient is currently afebrile with no leukocytosis hemoglobin of 16.0. No significant abnormalities on the patient's CMP. CT scan does show evidence of colitis. Patient will be started on Cipro Flagyl due to underlying medication allergies. Patient was also provided some medication for IV pain control and a L of fluids. Patient family updated on the results of the workup patient was comfortable plan for discharge to home with follow-up with GI as outpatient. All questions concerns were addressed. Differential Diagnosis Differential Diagnosis: Colitis, diverticulitis, abscess, hematochezia, anemia Vital Signs Vital Signs: Vital Signs Temperature 97.5 F L 09/11/24 11:18 Pulse Rate 115 H 09/11/24 11:18 Respiratory Rate 14 09/11/24 11:18 Blood Pressure 134/79 09/11/24 11:18 Pulse Oximetry 95 09/11/24 11:18 Temperature 97.7 F 09/11/24 14:01 Pulse Rate 83 09/11/24 14:01 Respiratory Rate 16 09/11/24 14:01 Blood Pressure 132/88 09/11/24 14:01 Pulse Oximetry 95 09/11/24 14:01 Lab Data Lab results reviewed: Yes I reviewed the patient's lab results. 09/11/24 11:27 09/11/24 11:27 Labs: Lab Results 09/11/24 09/11/24 Range/Units 11:27 13:03 WBC 8.3 (4.5-10.0) K/mm3 RBC 5.24 (4.6-6.20) M/mm3 Hgb 16.0 (14.0-18.0) g/dL Hct 48.1 (42.0-52.0) % MCV 91.8 (80-100) fl MCH 30.5 (26-34) pg MCHC 33.3 (32-36) g/dl RDW 14.2 (11.5-14.5) % Plt Count 158 (150-375) k/mm3 MPV 10.0 (7.4-10.4) fl Immature Gran % (Auto) 0.1 (0-0.5) % Neut % (Auto) 68.8 (45.5-73.1) % Lymph % (Auto) 22.9 (18.3-44.2) % Ponce % (Auto) 6.2 (2.6-8.5) % Eos % (Auto) 1.3 (0-4.4) % Baso % (Auto) 0.7 (0.2-1.2) % Lymph # (Auto) 1.89 (0.9-3.2) K/mm3 Ponce # (Auto) 0.5 (0.1-0.6) K/mm3 Eos # (Auto) 0.1 (0-0.3) K/mm3 Baso # (Auto) 0.1 (0.0-0.1) K/mm3 Abs Immat Gran (auto) 0.01 (0.00-0.031) K/mm3 Absolute Neuts (auto) 5.7 (1.3-6.7) K/mm3 Absolute Nucleated RBC 0.000 (0.0-0.012) K/mm3 Nucleated RBC % 0.0 (0.0-0.2) % PT 13.0 (11.1-14.7) Seconds INR 0.9 APTT 36.0 (22.3-36.8) Seconds Sodium 137 (137-145) mmol/L Potassium 4.3 (3.4-5.0) mmol/L Chloride 101 (98-107) mmol/L Carbon Dioxide 25 (22-30) mmol/L Anion Gap 11 (4-12) mmol/L BUN 20 (9-20) mg/dL Creatinine 0.96 (0.7-1.3) mg/dL Estim Creat Clear Calc Not Reportable Estimated GFR > 60 (59 - ) Glucose 135 H (65-110) mg/dL Calcium 9.7 (8.4-10.2) mg/dL Total Bilirubin 0.8 (0.2-1.3) mg/dL AST 23 (17-59) U/L ALT 23 (6-50) U/L Alkaline Phosphatase 75 (38-126) U/L Total Protein 8.0 (6.3-8.2) g/dL Albumin 4.6 (3.5-5.1) g/dL Lipase 90 (23-300) U/L Urine Color Dark yellow (Yellow) Urine Appearance Clear (Clear) Urine pH 6.5 (5.0-9.0) Ur Specific [place] > 1.045 H (1.001-1.035) Urine Protein 3+ H (Negative) mg/dL Urine Glucose (UA) Negative (Negative) mg/dL Urine Ketones Trace H (Negative) mg/dL Ur Blood (Man) Negative (Negative) Urine Nitrate Negative (Negative) Urine Bilirubin 2+ H (Negative) Urine Urobilinogen 0.2 (<2.0) mg/dL Add Ur Microanalysis Reviewed Leukocyte Esterase Rfl Negative (Negative) JAZMYNE/UL Urine RBC 6-10 H (0-2) /hpf Urine WBC 0-5 (0-3) /hpf Ur Squamous Epith Cells Occasional (Few) /hpf Urine Bacteria None seen /hpf Urine Casts 0-2 Imaging Data Radiologist's impression: Impressions Abdomen/Pelvis CT 09/11/24 12:27 IMPRESSION: 1. Wall thickening from the distal transverse to the proximal sigmoid colon consistent with colitis which could be infectious, inflammatory or ischemic in etiology. Discharge Plan Discharge Clinical Impression: Colitis Patient Disposition: Home Condition: Stable Instructions: Antibiotic Form, Clear Liquid Diet (ED), Abdominal Pain (ED), Colitis (ED) Additional Instructions: Clear liquid diet for the next 1-3 days. Zofran as needed for nausea control. Antibiotic as directed until completed. Tylenol for pain control. Have close follow-up with your primary care physician and with GI. If you have any worsening symptoms then please call or return to the emergency department. Patient Language: Egyptian Prescriptions: New ciprofloxacin HCl 500 mg tablet 500 mg PO Q12H 7 Days Qty: 14 0RF metronidazole 500 mg tablet 500 mg PO Q12H 7 Days Qty: 14 0RF ondansetron 4 mg tablet,disintegrating 4 mg PO Q8H PRN (Reason: nausea and vomiting) Qty: 14 0RF Discontinued cefdinir 300 mg capsule 300 mg PO Q12H Qty: 10 0RF azithromycin 250 mg tablet 250 mg PO DAILY Qty: 4 0RF No Action celecoxib 200 mg capsule 200 mg PO DAILY prednisone 20 mg tablet 40 mg PO DAILY Rx Instructions: take for 5 days, has 3 days left lansoprazole 30 mg capsule,delayed release(DR/EC) 30 mg PO DAILY lisinopril 5 mg tablet 5 mg PO DAILY albuterol sulfate 90 mcg/actuation HFA aerosol inhaler 2 inh INHALATION Q4H PRN (Reason: Wheezing) Rx Instructions: take 2 puffs every 4 hours as needed for 10 days ezetimibe 10 mg tablet 10 mg PO DAILY rosuvastatin 40 mg tablet 40 mg PO HS metoprolol tartrate 25 mg tablet 12.5 mg PO BID duloxetine 30 mg capsule,delayed release(DR/EC) 30 mg PO DAILY benzonatate 100 mg Capsule 100 mg PO TID Rx Instructions: take for 10 days prednisone 50 mg tablet 50 mg PO DAILY Qty: 5 0RF Follow-up/Referrals: Omaira,Pamella Leung, SALES PROPERTY MANAGER [Primary Care Provider] -
[2024-09-11] MEDS: SODIUM CHLORIDE 0.9% IV 1,000 ML 999 ML (12:58)
[2024-09-11] MEDS: HYDROmorphone HCL INJ (*CRX) 2 MG/ML VIAL 0.5 MG IV PUSH (12:59)
[2024-09-11] MEDS: metroNIDAZOLE 500 MG TABLET PO (13:00)
[2024-09-11] MEDS: CIPROFLOXACIN 500 MG TAB PO (13:00)
[2024-09-11 13:03] VITALS: BP 140/87; PULSE 88; RESP 15; O2SAT 99
[2024-09-11 13:20] LABS: INR 0.9
[2024-09-11 13:31] VITALS: BP 134/90; PULSE 86; RESP 16; TEMP 36.6; O2SAT 97
[2024-09-11 13:41] LABS: Add Urine Microscopic? YES; Appearance Urine Clear (Clear); Bilirubin Urine 2+ (Negative); Blood Urine Negative (Negative); Color Urine Dark Yellow (Yellow); Glucose Urine UA Negative (Negative); Ketones Urine Trace mg/dL (Negative); Leukocyte Esterase Ur Negative LEU/UL (Negative); Nitrate Urine Negative (Negative); Protein Urine 3+ mg/dL (Negative); Specific Grav Ur > 1.045 (1.001-1.035); Urobilinogen Urine 0.2 mg/dL (<2.0); pH Urine 6.5 (5.0-9.0)
[2024-09-11 13:51] LABS: Bacteria Urine None Seen /hpf; Need Manual Microscopic Reviewed; Non Pathogenic Casts 0-2; Squamous Epithelial Cell Urine Occasional /hpf (Few); WBC Urine 0-5 /hpf (0-3)
[2024-09-11 14:01] VITALS: BP 132/88; PULSE 83; RESP 16; TEMP 36.5; O2SAT 95
== END 2024-09-11 14:11 | disposition home or self-care (01) ==
PROVIDERS: Emergency Provider Emergency Medicine
DX: K52.9 Noninfective gastroenteritis and colitis, unspecified (principal); J44.9 Chronic obstructive pulmonary disease, unspecified
CPT/HCPCS: 36415; 74177; 80053; 81001; 83690; 85025; 85610; 85730; 96361; 96374; 99284; A9270; J1171; J7030; Q9967

== ENCOUNTER 2024-10-20 14:03 | Outpatient (CLI) | payer MEDICARE, SELFPAY ==
--- NOTE | ~2024-10-20 | CT_ITS ---
CT of the Abdomen and Pelvis: Indication: Abdominal pain Technique: 2.5 mm axial scans were obtained through the abdomen and pelvis following intravenous adm inistration of 100 cc of Omnipaque 350. Dose reduction technique was used on this scan by utilizing a utomated exposure control and iterative reconstruction technique. The dose-length product (DLP) was 9 85.15 mGy-cm. COMPARISON: 09/11/2024 Findings: Scans through the lung bases are unremarkable. The liver, spleen, pancreas, gallbladder, adrenals and kidneys are within normal limits. No evidence of aortic aneurysm. No lymphadenopathy. No bowel obstruction or bowel wall thickening. There is no evidence to suggest acute appendicitis. Images through the pelvis are degraded by streak artifact from bilateral hip arthroplasty. Urinary bl adder appears unremarkable. No pelvic mass seen. No ascites. Impression: No significant abnormalities seen. Reviewed, dictated and finalized at [facility]. Impression: No significant abnormalities seen.
--- OUTSIDE RECORDS SUMMARY | 2024-10-20 14:08 | XMS_ITS | Continuity of Care Document ---
Author Organization [facility] Address [address] [place] [address] Phone Care Team Providers Care Packaging Clerk Name Role Phone Gucci Tinajero Unavailable Unavailable Procedures Procedure Date Eye Exam, New Patient Advance Directives Directive Yes / No Effective Date File Name No Information Encounters Encounter Description Practice Location Reason(s) For Visit Diagnoses Date Provider Providers Copied on Encounter [facility], [address], [place], [place], [id number], [place] tel:[phone] [facility] No Information 201 0 Tanvi Gucci. [address] [address], [place], [address], [place]. tel:[phone] Family History Family Member Type Diagnosis Age At Onset No Information Payers Payer name Insurance type Covered republican ID Authorcharitya ticarole(s) [employer] Vision Plan CI [id number] Social History Type Description Quantity Date Captured [...]
--- OUTSIDE RECORDS SUMMARY | 2024-10-20 14:08 | XMS_ITS | Encounter Summary ---
Author Organization [facility] Address 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
--- OUTSIDE RECORDS SUMMARY | 2024-10-20 14:08 | XMS_ITS | CONTINUITY OF CARE DOCUMENT ---
Author Name irma solis Address Unknown Organization [facility] Address [address] [place] [address] Phone [phone] Care Team Providers Care Production Planning Supervisor Name Role Phone Shane JAIMES, Melani Unavailable [phone] Francisco SLITTING [employer] SHIPPING SUPERVISOR-BC, Gisell Murphy Unavailable [phone] Francisco SLITTING AND SHIPPING SUPERVISOR-BC, Gisell Jeffrey Unavailable [phone] PROBLEMS Condition Status Date Provider Notes SINUS [...] In-person encounter Office Visit Melani Lynn MD [facility] Dizziness and lightheadedness - In-person encounter Office Visit Melani Lynn MD [facility] Tobacco abuseTobacco use - In-person encounter Office Visit Melani Lynn MD [facility] PAD - In-person encounter Office Visit Melani Lynn MD [facility] - In-person encounter Office Visit Melani Lynn MD [facility] - In-person encounter Office Visit Melani Lynn MD [facility] - In-person encounter Office Visit Melani Lynn MD [facility] Office SINUS TACHYCARDIA-07/29 HOLTER SRHTN ESSENTIAL-07/02 NUC NEGHTN essentialSinus tachycardia - In-person encounter Office Visit Melani Lynn MD [facility] - In-person encounter Office Visit Melani Lynn MD [facility] Diabetes mellitus, Type II - A1c 6.3% 01/2018Hyperglycemia - In-person encounter Office Visit Melani Lynn MD [facility] DYSLIPIDEMIA - In-person encounter Office Visit Melani Lynn MD [facility] Diabetes mellitus, Type II - A1c 6.3% 01/2018COPD - mild - In-person encounter Office Visit Melani Lynn MD [facility] SyncopeLyme diseaseDyspnea on exertion - In-person encounter Office Visit Gonzalez Monahan MD [facility] - In-person encounter Office Visit Goznalez Monahan MD [facility] - In-person encounter Office Visit Gonzalez Monahan MD [facility] CHEST PAIN-12/29 CATH NL - In-person encounter Office Visit Gonzalez Monahan MD [facility] SINUS TACHYCARDIA-07/29 HOLTER SRHyperlipidemiaHTN ESSENTIAL-07/02 NUC NEGTobacco abuseOBESITY VITAL SIGNS Date Observation Value Provider Body Mass Index (Ratio) 35.14 kg/m2 Varun Lynn MD oxygen saturation, oximetry 95 % Glory [place] pulse rate 88 /min Glory Juice respiratory rate E&M 16 /min Catheri ne [place] weight E&M 238 [lb_av] Glory [place] blood pressure, cuff size regular Ca therine [place] height E&M 69 [in_i] Glory [place] Body Mass Index (Ratio) 34.70 kg/m2 David [...] blood pressure, diastolic 80 mm[Hg] Brigida kumari [place] blood pressure, systolic 132 mm[Hg] Raul carty [place] oxygen saturation, oximetry 99 % Christine Bryan respiratory rate E&M 16 /min Kendra mitra [place] pulse rate 104 /min Christine menjivar weight [...] blood pressure, cuff size regular Kr isty Valatie blood pressure, diastolic 80 mm[Hg] Kr isty Valatie blood pressure, systolic 130 mm[Hg] Kri sty Valatie pulse rate 106 /min Gifty Kelly oxygen saturation, oximetry 97 % Gifty Valatie respiratory rate E&M 18 /min Gifty Kelly weight E&M 216 [lb_av] Gifty Valatie height E&M 69 [in_i] Gifty Kelly Body Mass Index (Ratio) 33.13 kg/m2 Sukumar Morante blood pressure, cuff size regular Kr isty Kelly blood pressure, diastolic 80 mm[Hg] Kr isty Kelly blood pressure, systolic 142 mm[Hg] Kri sty Valatie respiratory rate E&M 18 /min Gifty Valatie pulse rate 107 /min Gifty Valatie oxygen saturation, oximetry 97 % Gifty Valatie weight E&M 224.4 [lb_av] Gifty Valatie height E&M 69 [in_i] Gifty Kelly Body Mass Index (Ratio) 33.96 kg/m2 Varun [...] blood pressure, systolic 130 mm[Hg] Kri sty Valatie oxygen saturation, oximetry 98 % Gifty Kelly respiratory rate E&M 17 /min Gifty Valatie pulse rate 101 /min Gifty Kelly blood pressure, cuff size regular Kr isty Valatie weight E&M 231 [lb_av] Gifty Kelly height E&M 69 [in_i] Gifty Valatie Body Mass Index (Ratio) 35.44 kg/m2 Varun [...] Maxwell Kapadia respiratory rate E&M 16 /min [facility], diastolic 70 mm[Hg] Arnulfo [facility] blood pressure, systolic 120 mm[Hg] Milagro cha Ferreira oxygen saturation, oximetry 95 % [place] Fer[place] pulse rate 105 /min Betty Ferreira weight E&M 238 [lb_av] [place] Fer[place] height E&M 69 [in_i] [place] Ferreira Body Mass Index (Ratio) 35.14 kg/m2 [...] stity Johnathan oxygen saturation, oximetry 95 % [facility] John[facility] respiratory rate E&M 16 /min Jasiel [...] High 4 cholesterol, serum 190 mg/dL [employer] [phone]/12/2 4 platelet count 155 X10E3/UL [employer] [phone]/12/2 4 red blood cell distribution width 12.4 [...] High 4 sodium, serum 140 mmol/L [employer] [phone]/12/2 4 urea nitrogen/creatinine ratio, serum 14 [employer] [...] Lynn MD seatbelt usage 100 % Glory Mcikie s caffeine use, averag e drinks per day yes Glory Juice passive cigarette sm liam exposure yes Glory Juice smoking, date started 1987 Cather ine Juice smoking history, tot al pack/year 26 Glory [place] smoking history, tot al pack/day 1 Glory [place] cigarette use yes Glory [place] smoking status Former smoker Glory Ot is [...] status Current every day smoker Alina johnston [place] seatbelt usage 100 % [facility] caffeine use, averag e drinks per day yes Christine [place] passive cigarette sm liam exposure yes Christine [place] smoking/tobacco cess ation, patient education and counseling yes Christine [place] smoking, date started 1987 Adam bradley [place] smoking history, tot al pack/year 26 Christine [place] smoking history, tot al pack/day 1 Christine [place] cigarette use yes [facility] seat[facility] usage 100 % Melani sanchez [...] Lynn MD seatbelt usage 100 % Gifty Valatie caffeine use, averag e drinks per day yes Gifty Kelly passive cigarette sm liam exposure yes Gifty Valatie smoking/tobacco cess ation, patient education and counseling yes Gifty Valatie smoking, date started 1987 Gifty Valatie smoking history, tot al pack/year 26 Gifty Kelly smoking history, tot al pack/day 1 Gifty Kelly cigarette use yes Gifty Valatie smoking status Current every day smoker K ryan Valatie social history E&M Marital Statu s: L roxie with family/friends J ob Status: Employed full-time Smoking History: P atient currently smokes every day. P atient has been counseled to quit. Melani yLnn MD social history reviewed E&M revi ewed - no changes required Melani Lynn MD seatbelt usage 100 % Gifty Kelly caffeine use, averag e drinks per day yes Gifty Valatie passive cigarette sm liam exposure yes Gifty Valatie smoking/tobacco cess ation, patient education and counseling yes Gifty Valatie smoking, date started 1987 Gifty Kelly smoking history, tot al pack/year 26 Gifty Kelly smoking history, tot al pack/day 1 Gifty Kelly cigarette use yes Gifty Valatie smoking status Current every day smoker K ryan Valatie seatbelt usage 100 % Magdalena Garcia caffeine [...] passive cigarette sm liam exposure yes Gifty Valatie smoking/tobacco cess ation, patient education and counseling yes Gifty Lopes[place] smoking, date started 1987 Gifty Valatie smoking history, tot al pack/year 26 Gifty Valatie smoking history, tot al pack/day 1 Gifty Lopesby cigarette use yes Gifty Valatie smoking status Current every day smoker Britney [...] ation, patient education and counseling yes Brandie TylerLuulChau passive cigarette sm liam exposure yes Brandie [...] % Chastity Hogu e alcohol counseling no [facility] alcohol use, average drinks per day social [facility] Johnathan alcohol use yes [facility] caffeine use, averag e drinks per day yes [facility] drug use none [facility] smoking/tobacco cess ation, patient education and counseling yes [facility] passive cigarette sm liam exposure yes [facility], [facility] smoking [facility], tot al pack/year 26 Chastity Johnathan smoking history, tot al pack/day 1 Chastity Johnathan cigarette use yes [facility] smoking status Current every day smoker [...] Fall Assessment not done medical c ontraindication [place] Fer[place] MENTAL STATUS Date Observation Value Provider [...] Payer name Policy type / Coverage type [place] [employer] party ID [employer] G[employer] O HMO [id number] ADVANCE DIRECTIVES Name Date DISCUSSED - NO DECISION MADE TREATMENT PLAN Date Name Performer [id number],C,D enies of any symptoms at present. The sensilase was mildly abnormal last time it was checked. Melani Lynn MD [id number],N,E pisodes of dizziness on standing. Infrequent episodes and no obvious cause is known. We will check carotid doppler, stress test, and obtain 7 day monitor. Patient was advised to increase water intake. Patient was instructed to record BP regularly while standing up, and record BP when episodes of dizziness happen. Melani Lynn MD [id number],C,In remission. Melani Lynn MD [id number],C,Uses trelegy as needed. Melani Lynn MD [id number],C,On rosuvastat in, zetia. Melani Lynn MD [id number],C,D iet controlled. Continues on lisinopril. Melani Lynn MD [id number],S, P atient reports that he only smokes when he has a beer. Melani Lynn MD [id number],S, F lareups usually occur in summer. Responds to abx and steroids. Melani Lynn MD [id number],S, C ontinues on Crestor and Zetia. Melani Lynn MD [id number],S, N o recurrence. Effort tolerance stable. Melani Lynn MD [id number],S, D iet controlled. Continues on lisinopril for renal protection. Melani Lynn MD [id number],S, B P control is satisfactory. Advised reduced sodium intake and weight reduction. Melani Lynn MD [id number],S, R ecent ABIs were normal. Sensilase showed reduced distal pressures with adequate perfusion for wound healing. His leg pain is likely related to long-term back issues. Melani Lynn MD [id number],S, N o further recurrence. Melani Lynn MD [id number],S, S TRONGLY ENCOURAGED TO STOP SMOKING; SMOKING CESSATION TECHNIQUES DISCUSSED. Melani Lynn MD [id number],S, D enies of any shortness of breath. Continues on Trelegy. Melani Lynn MD [id number],C, C ontinues on Crestor and Zetia. Melani Lynn MD [id number],C, D iet controlled. Continues on lisinopril for renal protection. Melani Lynn MD [id number],C,H is symptoms are not consistent with PAD. The dorsalis pedis and PT are palpable on both feet. Will repeat ABIs and Sensilase. Melani Lynn MD [id number],C,P ersistent sinus tachycardia. Will increase the dose of BB, if he remains tachycardic will consider Corlanor. Melani Lynn MD [id number],C,R ecent exacerbation with rash and joint pain. He reports feeling much better after treatment with abx and steroids. Melani Lynn MD [id number],C,D iet controlled. Continues on lisinopril for renal protection. Melani Lynn MD [id number],C,Continues on Crestor and Zetia. eMlani Lynn MD [id number],C,B P control is satisfactory. Advised reduced sodium intake and weight reduction. Melani Lynn MD [id number],C,N o recurrence. Effort tolerance stable. Melani Lynn MD [id number],C,1 02 bpm on EKG today. He continues [...] any shortness of breath. Continues on Trelegy. Mealni Lynn MD Cardiology: C ontinues on Crestor [...] flutter, fibrillations, or any bradyarrhythmias seen. - [facility] (08/18/2011) N uclear Stress Findings: 1. Normal Raulito protocol exercise tolerance test. 2 . Normal left ventricular size and function with a calculated ejection fraction of 57%. 3 . Myocardial scintigraphy is normal without evidence for previous myocardial infarction or reversible ischemia. - (07/15/2012) C ardiac Cath: Normal coronary arteries. Normal left ventricular systolic function. 6-Yemeni Angio-Seal placement. - [facility] (12/24/2011) Gonazlez Monahan MD routine: H is updated medication [...] coronary arteries. Normal left ventricular systolic function. 6-Yemeni Angio-Seal placement. - [facility] (12/24/2011) C arotid Doppler/Duplex: Normal bilateral both carotid and vertebral systems. - [facility] (12/24/2011) Gonzalez Monahan MD routine: B P today: 100/54 Prior BP: 151/98 (07/08/2012) H olter Monitor: Holter monitor shows the patient has sinus rhythm, most of the time. sinus tachycardia. occasional PVC and 1 episode of ventricular couplets. No sustained ventricular tachycardia, PAT, atrial flutter, fibrillations, or any bradyarrhythmias seen. - [facility] (08/18/2011) N uclear Stress Findings: 1. Normal Raulito protocol exercise tolerance test. 2 . Normal left ventricular size and function with a calculated ejection fraction of 57%. 3 . Myocardial scintigraphy is normal without evidence for previous myocardial infarction or reversible ischemia. - (07/15/2012) C ardiac Cath: Normal coronary arteries. Normal left ventricular systolic function. 6-Yemeni Angio-Seal placement. - [facility] (12/24/2011) His updated medication list for [...] coronary arteries. Normal left ventricular systolic function. 6-Yemeni Angio-Seal placement. - [facility] (12/24/2011) C arotid Doppler/Duplex: Normal bilateral both carotid and vertebral systems. - [facility] (12/24/2011) His updated medication list for [...] ..... One tab daily Orders: Mitra KG ([id number]) Gonzalez Monahan MD follow up: H is updated medication list for this problem includes: Carvedilol 6.25 Mg Tabs (Carvedilol) ..... 1 tab twice daily Aspirin 81 Mg Tabs (Aspirin) ..... One tab. daily Lisinopril 20 Mg Tabs (Lisinopril) ..... One tab daily Orders: Victoria jones Test - Nuclear ([id number]) Gonzalez Monahan MD new patient: H is [...] coronary arteries. Normal left ventricular systolic function. 6-Yemeni Angio-Seal placement. - [facility] (12/24/2011) Orders: E KG ([id number]) H olter Monitor 24 Hr ([id number]) Gonzalez Monahan MD Date Name Carotid Duplex [...] Exercise Card iolite Complete Echo DLCO - 64574 FRC - 96018 FVC - 61052 Carotid Duplex Bilat eral Complete Echo Mobile [...] ed FVC / MVV with bronchodilator - 51568 Melani Lynn MD completed FRC - 18602 Melani Lynn MD comple adolfo SpO2 - 21818 Melani Lynn MD compl eted DLCO - 37158 Melani Lynn MD compl eted Mobile Cardiac Telem etry - Tech Melani Lynn MD completed Mobile Cardiac Telem etry - Prof Melani Lynn MD completed EKG Melani Lynn MD complet ed DEBORAH Monahan MD complete d DEBORAH Monahan MD complete d DEBORAH Monahan MD complete d
--- OUTSIDE RECORDS SUMMARY | 2024-10-20 14:08 | XMS_ITS | Referral Summary ---
Author Organization [facility] Address [address] [place] [address] Care Team Providers Care Funeral Pre Arrangement Specialist Name Role Phone Haim Colunga MD Primary Care Provider [phone] Encounters Date Type Department Care Team Description 10/17/2024 2:45 PM CDT Office Visit [facility] at [address] [address] Nadir Hargrove NP Dermatitis (Primary Dx); Skin infection, bacterial; Itching; Tachycardia from Last 3 Months Allergies Active Allergy Reactions Criticality Noted Date Comments Penicillins Hives High Reaction: Hives, , Reaction: Hives, Medications albuterol HFA (PROVENTIL HFA,VENTOLIN HFA,PROAIR HFA) 90 mcg/actuation inhaler Inhale 1 puff daily 02/08/20 23 Active celecoxib (CeleBREX) 200 mg capsule Take 1 capsule (200 mg total) by mouth daily 01/19/[address] (CYMBALTA) 30 mg capsule Take 2 capsules (60 mg total) by mouth nightly Active Zetia 10 mg tablet Take 1 tablet (10 mg total) by mouth daily 01/28/20 19 Active Prevacid 30 mg capsule Take 1 capsule (30 mg total) by mouth daily 05/20/18 70 Active metFORMIN XR (GLUCOPHAGE XR) 500 mg 24 hr tablet Take 1 tablet (500 mg total) by mouth daily 02/23/20 23 Active metoprolol tartrate (LOPRESSOR) 25 mg immediate release tablet Take 1 tablet (25 mg total) by mouth daily 10/29/19 19 Active rosuvastatin (CRESTOR) 40 mg tablet Take 1 tablet (40 mg total) by mouth daily 10/23/19 19 Active fyywn-8-zop-e pa-fish oil (Fish OiL) 300-1,000 mg capsule,delay ed release(DR/EC ) Fish Oil 300-1,000 mg capsule,delayed release(DR/EC) 07/12/19 18 Active triamcinolone (KENALOG) 0.1 % ointment APPLY 1 APPLICATION SPARINGLY ONTO THE AFFECTED AREA(S) ON THE SKIN EVERY 12 HOURS NEEDED 07/25/19 24 Active amitriptyline (ELAVIL) 25 mg tablet at night Active aspirin 81 mg enteric coated tablet Take 1 tablet every day by oral route. 12/15/19 21 Active amLODIPine (NORVASC) 5 mg tablet Take 1 tablet every day by oral route for 30 days. Active buPROPion XL (WELLBUTRIN XL) 150 mg 24 hr tablet Take 1 tablet every day by oral route. Active buPROPion SR (WELLBUTRIN SR) 150 mg 12 hr tablet Take 1 tablet (150 mg total) by mouth 2 (two) times a day Active aspirin 81 mg capsule Take 81 mg by mouth daily Active carvediloL (COREG) 6.25 mg tablet Active fluticasone-u meclidin-azul nter (TRELEGY ELLIPTA) 100-62.5-25 mcg inhaler INHALE 1 PUFF ONCE EVERY DAY Active losartan-hydr oCHLOROthiazi de (HYZAAR) 50-12.5 mg per tablet Take 1 tablet by mouth daily Active metoprolol XL (Toprol XL) 25 mg extended release tablet Active pregabalin (Lyrica) 75 mg capsule Take 1 capsule twice a day by oral route. Active tirzepatide (Mounjaro) 2.5 mg/0.5 mL pen injector injection INJECT 2.5 MG EVERY WEEK BY SUBCUTANEOUS ROUTE DIRECTED FOR 28 DAYS. Active cephalexin (KEFLEX) 500 mg capsuleIndica tions:Skin infection, bacterial Take 1 capsule (500 mg total) by mouth 4 (four) times a day for 7 days 28 capsule 10/18/19 25 025 Active mupirocin (BACTROBAN) 2 % ointmentIndic ations:Skin infection, bacterial Apply topically 3 (three) times a day for 10 days 22 g 10/18/19 25 025 Active cyclobenzapri ne (FLEXERIL) 5 mg tabletIndicat ions:Itching Take 1 tablet (5 mg total) by mouth nightly as needed for muscle spasms for up to 7 days 7 tablet 10/18/19 25 025 Active lisinopriL (PRINIVIL,ZES TRIL) 5 mg tablet Take 0.5 tablets (2.5 mg total) by mouth daily 07/30/19 19 025 Discontinued cyclobenzapri ne (FLEXERIL) 10 mg tablet TAKE 1 TABLET BY MOUTH TWICE A DAY NEEDED FOR MUSCLE SPASMS 07/30/19 24 025 Discontinued(T herapy completed) Active Problems Problem Noted Date Diagnosed Date [...] on file 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 Gender Identity Not on file Sexual Orientation Not on file Last Filed Vital Signs Vital Sign Reading Time Taken Comments Blood Pressure 137/85 10/17/2024 2:12 PM CDT Pulse 103 10/17/2024 2:39 PM CDT Temperature 37.2 C (98.9 F) 10/17/2024 2:12 PM CDT Respiratory Rate 20 10/17/2024 2:12 PM CDT Oxygen Saturation 99% 10/17/2024 2:12 PM CDT Inhaled Oxygen Concentration - - Weight 102.1 kg (225 lb) 10/17/2024 2:12 PM CDT Height 177.8 cm (5' 10) 09/27/2023 10:02 AM CDT Body Mass Index 32.28 09/27/2023 10:02 AM CDT Plan of Treatment [...] BLOOD ORDERABLES Fi nal Result [facility] [address] [facility] [place] [address] * POCT lipid panel (02/27/2023 3:16 PM [...] Most Recently Relevant to Health Maintenance Insurance [facility] MEDICARE ADVANTAGE [employer] MEDICARE HMO Advance Directives For more information, please contact: [phone] * Full Code (Latest Code Status on File) Date Activated Date Inactivated Comments 06/21/2023 9:20 AM 06/22/2023 4:53 AM Care Teams Funeral Pre Arrangement Specialist Relationship Specialty Start Date End Date Haim Colunga MD [address] [address] PCP - General Family Medicine 08/13/23
--- OUTSIDE RECORDS SUMMARY | 2024-10-20 14:08 | XMS_ITS | Encounter Summary ---
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
--- OUTSIDE RECORDS SUMMARY | 2024-10-20 14:08 | XMS_ITS | Clinical Summary ---
Author Organization [facility] Medical Office Building B Address [address] [place] [address] Care Team Providers Care Agate Setter Name Role Phone Haim Colunga MD Primary Care Provider [phone] Allergies Active Allergy Reactions Criticality Noted Date [...] total) by mouth daily 10/23/19 19 Active vuqdx-4-npr-e pa-fish oil (Fish OiL) 300-1,000 mg capsule,delay [...] 03/26/2012 Pain in extremity 03/24/2012 Cervicalgia 03/20/2012 Encounters Date Type Department Care Team Description 10/17/2024 2:45 PM CDT Office Visit [facility] Care at [address] [address] Nadir Hargrove NP Dermatitis (Primary Dx); Skin infection, bacterial; Itching; Tachycardia from Last 3 Months Surgical History Surgery Date Site/Laterality Comments ROTATOR CUFF REPAIR 05/20/2021 - 05/19/2022 Left TOTAL HIP ARTHROPLASTY Bilateral 2012 and 2016 BACK SURGERY 05/20/1988 - 05/19/1989 HERNIA REPAIR [...] on file 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 Gender Identity Not on file Sexual Orientation [...] 1979 Zoster Vaccine (1 of 2) 2011 Covid-19 Vaccine (4 - 2023-2 5 season) 2024 05/01/2021, 08/29/2020, 07/31/2020 Lipid Panel 02/28/2024 02/27/2023 Pneumococcal vaccine <65 (2 of 2 - PCV) 04/16/2024 04/16/2023, 03/26/2014 eGFR 09/26/2024 09/27/2023 Influenza Vaccine (Season Ended) 2025 02/22/2023, 03/06/2017, 04/21/2015, Additional history exists DTaP/Tdap/Td Vaccine (3 - Td or Tdap) 08/16/2026 08/16/2016, 05/20/2016 Hepatitis C Screening Completed 11/24/2013 Procedures [...] MD LAB BLOOD ORDERABLES Fi nal Result Performing Organization Address City/[facility]/ZIP Co de Phone Number [facility] Department of Laboratories [place] [phone] * POCT lipid panel (02/27/2023 3:16 PM [...] Most Recently Relevant to Health Maintenance Insurance [facility] MEDICARE ADVANTAGE [employer] MEDICARE HMO Advance Directives For more information, please contact: [phone] * Full Code (Latest Code Status on File) Date Activated Date Inactivated Comments 06/21/2023 9:20 AM 06/22/2023 4:53 AM Care Teams Agate Setter Relationship Specialty Start Date End Date Haim Colunga MD [address] [address] PCP - General Family Medicine 08/13/23
--- OUTSIDE RECORDS SUMMARY | 2024-10-20 14:08 | XMS_ITS | Clinical Summary ---
Author Organization [facility] Care Team Providers Care Rock Climbing Team Member Name Role Phone Sejal Singh APRN, CNP [...] - 08/20/2024 10:10 AM CDT Surgery [facility] Periop [address] [place] [address] Raulito Sierra MD LUMBAR EPIDURAL STEROID INJECTION 08/20/2024 8:29 AM CDT [facility] [address] [place] [address] Tony Saez MD 08/20/2024 6:58 AM CDT - 08/20/2024 10:00 AM CDT Hospital [facility] Preop[facility]Pacu II [address] [place] [address] Raulito Sierra MD Discharge Disposition: Discharged to [...] 7:20 AM CDT Height 177.8 cm (5' 10) 08/20/2024 7:20 AM CDT Body Mass Index [...] on patient's age to complete this topic Human Papillomavirus (HPV) Immunization Aged Out No longer eligible based on patient's age to complete this topic Meningococcal Immunization (ACWY) Aged Out No longer eligible based on patient's age to complete this topic Rotavirus Immunization Aged Out No lo nger eligible based on patient's age to complete this topic Medical Devices Implanted Type Area Advertisement Compositor Device Identifier Shelf Expiration Date Model / Serial / Lot Dynasty Acetabular System Comp Biofoam S - [id number] Implanted:Qty: 1 on 04/20/2015 by Raulito Sierra MD at [facility] IMPLANT Right: Hip [email or web address] [facility]-GE54 / / [id number] Scr Canc St Advtm 6.5x30mm - [id number] Implanted:Qty: 1 on 04/20/2015 by Raulito Sierra MD at [facility] IMPLANT Right: Hip [email or web address] 09/18/2022 [id number] / / [id number] Profemur Renaissance Stem Standard Sz 15 - [id number] Implanted:Qty: 1 on 04/20/2015 by Raulito Sierra MD at [facility] IMPLANT Right: Hip [email or web address] 05/21/2021 [id number] / [id number] / [id number] Dynasty Aclass Poly Liner 15 Deg Liner 3 - [id number] Implanted:Qty: 1 on 04/20/2015 by Raulito Sierra MD at [facility] IMPLANT Right: Hip [email or web address] 11/18/2022 [id number] / / [id number] Conserve Head/Neck Sleeves For Bch/Bfh 0 - [id number] Implanted:Qty: 1 on 04/20/2015 by Raulito Sierra MD at [facility] IMPLANT Right: Hip [email or web address] 09/18/2022 [id number] / / [id number] [facility] Canc St Advtm 6.5x25mm - [id number] Implanted:Qty: 1 on 04/20/2015 by Raulito Sierra MD at [facility] IMPLANT Right: Hip [email or web address] 07/19/2021 [id number] / / [id number] Conserve Big Ceramic Femoral Head 38mm - [id number] Implanted:Qty: 1 on 04/20/2015 by Raulito Sierra MD at [facility] IMPLANT Right: Hip [email or web address] 09/18/2020 [id number] / / [id number] [employer] Plus Cocr Neck A/R 8 Short - [id number] Implanted:Qty: 1 on 04/20/2015 by Raulito Sierra MD at [facility] IMPLANT Right: Hip [email or web address] 01/19/2023 [id number] / / [id number] System Fix 19.1mm 4.75mm Speedbridge Swivelock Biocomposite David Preload Strl - [id number] Implanted:Qty: 1 on 07/27/2020 by Raulito Sierra MD at [facility] IMPLANT Left: Shoulder [employer] 05/19/2023 [id number] S-4 / [id number] S-4 / [id number] Procedures Procedure Name Priority Date/Time Associated Diagnosis Comments XR SURGICAL EXAM Routine 08/20/2024 8:56 AM CDT [place] NJX AA&/STRD TFRML EPI LUMBAR/SACRAL EA ADDL 08/20/2024 8:09 AM CDT LUMBAR STENOSIS Special Needs 5'10 225LBS HTN, ACID REFLUX [place] NJX AA&/STRD TFRML EPI LUMBAR/SACRAL 1 LEVEL 08/20/2024 8:09 AM CDT LUMBAR STENOSIS Special Needs 5'10 225LBS HTN, ACID REFLUX [place] NJX AA&/STRD TFRML EPI CERVICAL/THORACIC EA ADDL 08/20/2024 8:09 AM CDT LUMBAR STENOSIS Special Needs 5'10 225LBS HTN, ACID REFLUX [place] NJX AA&/STRD TFRML EPI CERVICAL/THORACIC 1 LEVEL [...] from Last 3 Months Insurance MEDICARE C [facility] Advance Directives * Full Code (Latest Code Status on File) Date Activated Date Inactivated Comments 04/26/2015 7:39 AM 07/27/2020 5:29 AM * Full Code Date Activated Date Inactivated Comments 04/21/2015 7:16 AM 04/23/2015 3:44 PM Full Code: FULL ARREST: Attempt Resuscitation/CPR and use intubation and mechanical ventilation as indicated. PRE-ARREST: Use all measures to stabilize patient. Care Teams Rock Climbing Team Member Relationship Specialty Start Date End Date Sejal Singh, GUIDE, DELIVERY CONSULTANT [address] [place] [address] PCP - General Certified Nurse Practitioner 12/15/19
--- OUTSIDE RECORDS SUMMARY | 2024-10-20 14:08 | XMS_ITS | Clinical Summary ---
Author Organization [facility] Address [address] [place] [address] Care Team Providers Care Mineral Engineer Name Role Phone Stanley Herzog MD Primary Care Provider [phone] Source Comments [facility],non-owned Affiliates and Associated Physician Practices is amultiple site organization consisting of ambulatory clinics and hospital sitesin [place], [place], [place] and [place]. This disclosure is being madepursuant to the Care Everywhere program and may not contain all information available regarding this patient. 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
--- OUTSIDE RECORDS SUMMARY | 2024-10-20 14:08 | XMS_ITS | Data Portability ---
Author Organization [facility] HomeCon, Main Office Address [address] [place] [address] Assessment No assessment recorded. Plan of Treatment Reminders Order Date Submit Date Provider Last Modified By Organization Details Last Modified Time Details Appointments Follow Up 15 2024 09:00A HELDER Cantrell Not available Not available Not available Lab HbA1c (hemoglob in A1c), blood [address] Out[facility], [address] [place], [address], 09/10/2024 08:09:18 CBC w/ auto diff 2024 025 [facility], [address] [place], [address], 09/04/2024 03:39:21 CMP, serum or plasma [address] Out[facility] Lab, [address] [place], [address], 09/10/2024 08:09:18 lipid panel, blood [address] Outpatient Lab, [address] [place], [address], 09/10/2024 08:09:18 TSH, serum, reflex free T4 2023 024 [facility], [address] [place], [address], 04/02/2024 23:16:04 CMP, serum or plasma 2023 024 [facility], [address] [place], [address], 04/02/2024 23:16:05 CBC w/ auto diff 2023 024 [facility], [address] [place], [address], 04/02/2024 23:16:05 lipid panel, serum 2023 024 [facility], [address] [place], [address], 04/02/2024 23:16:04 PSA, total + free, serum or plasma 2023 024 [facility], [address] [place], [address], 04/02/2024 23:16:05 HbA1c (hemoglob in A1c), blood 2023 024 [facility], [address] [place], [address], 04/09/2024 08:06:[address] referral 2024 025 Helen Alvarado MD, [address] [facility], [address], [address], 09/17/2024 15:08:25 rheumatol ogist referral - A lot of arthritis , multiple joint pain, MARLON leg tingling, loss of conscious ness. Please call patient to schedule an appointme nt. Thank you. 2023 024 [email or web address] Atilio Augustin DO, [address] [facility], [address], [place], [address], 02/03/2024 08:42:58 hand surgeon referral - Was told surgery is required by ortho, would like to see hand specialis tMary Has copy of MRI. Please call patient to schedule an appointme nt. Thank you. 2023 024 [email or web address] Mehrdad Duffy MD, [address], [address], [place], [address], 01/31/2024 08:49:40 Procedures None recorded. Surgeries None recorded. Imaging MRI, lumbar spine, w/wo contrast - *Please call pt to schedule* 2023 024 [facility], [address], [address], [place], [address], 01/17/2024 11:18:52 Medication Orders Solu-Medr ol (PF) 125 mg/2 mL solution for injection 2024 025 Not available 09/29/2024 13:10:23 hydroxyzi ne HCl 50 mg tablet 2024 025 [facility]/Pharmacy #[id number], [address] , [place], [address], 09/29/2024 12:02:03 Medrol (Remi) 4 mg tablets in a dose pack 2024 025 [id number] [address] , [place], [address], 09/29/2024 12:02:28 losartan 50 mg-hydroc hlorothia zide 12.5 mg tablet 2024 025 [facility]/Pharmacy #[id number], [address], [place], [address], 09/03/2024 10:31:53 celecoxib 200 mg capsule 2024 025 [facility]/Pharmacy #[id number], [address], [place], [address], 06/04/2024 13:07:58 metoprolo l succinate ER 50 mg tablet,ex tended release 24 hr 2024 025 [id number], [address], [place], [address], 09/03/2024 10:10:03 lansopraz ole 30 mg capsule,d elayed release 2023 024 [id number], [address] [place], [address], 04/02/2024 11:18:59 Bactrim DS 800 mg-160 mg tablet 2023 024 [id number], [address] [place], [address], 06/04/2024 12:14:40 lansopraz ole 30 mg capsule,d elayed release 2023 024 [id number], [address] [place], [address], 01/02/2024 11:47:15 duloxetin e 60 mg capsule,d elayed release 2023 024 [id number], [address], [place], [address], 01/02/2024 11:47:15 rosuvasta tin 40 mg tablet 2023 024 [id number], [address] [place], [address], 01/02/2024 11:47:16 pregabali n 100 mg capsule 2023 024 [id number], [address] [place], [address], 06/04/2024 12:14:29 Patient TargetsNo targets recorded. Patient Instructions Encounter Date Encounter Id Patient Instructions Last Modified By Organization Details Last Modified Time 04/02/2024 [id number] advance care planning: care instructions brandi Not available 04/02/2024 11:45:49 advance directives: care instructions brandi Not available 04/02/2024 11:45:49 [place] Advance Directives brandi Not available 04/02/2024 11:45:49 risk assessment* LILLIAM Not available 04/02/2024 11:50:39 INFLUENZA VACCIN E TD/TDAP PNEUMONIA VACCINE SHINGLES PSA COLORECTAL SCREENING DEPRESSION SCREENING BMI NUTRITION PHYSICAL ACTIVITY ALCOHOL USE TOBACCO USE LUNG CANCER SCREENING SEXUALLY ACTIVE HEPATITIS C SCREENING GLUCOSE SCREENING LIPID SCREENING brandi Not available 04/02/2024 11:45:24 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 Please call patient to schedule an appointment. Thank you. Referring Physician: Pamella Castano [facility], Encounter Date: 01/02/2024 Hand Surgeon Referral for Ru pture of extensor tendon of thumb Was told surgery is required by ortho, would like to see hand specialist. Has copy of MRI. Please call patient to schedule an appointment. Thank you. Referring Physician: Family Vita Segovia, Encounter Date: 01/02/2024 Neurologist Referral for Imp airment of balance Referring Physician: Pamella Castano [facility], Encounter Date: 09/03/2024 Results Created Date Observation Date Name Description Value Unit Range Abnormal Flag Note LastModifiedBy Organization Detail LastModifiedTime 01/17/20 24 01/17/2024 MRI, lumba r spine , w/wo contr ast No observ ation record ed. [facility] [address], [place], [address], 01/17/2024 12:52:38 01/17/20 24 01/17/2024 MRI, lumba r spine , w/wo contr ast No observ ation record ed. [facility] [address], [place], [address], 01/17/2024 12:52:38 09/12/19 25 09/11/2024 CT, abdom en + pelvi s, w/ contr ast No observ ation record ed. [facility] [address], [place], [address], 09/11/2024 14:55:53 Result Notes None recorded. Problems Name Problem SNOMED Code Status Onset Date Resolution Date Notes Provider Name and Address Organization Details Recorded Time Obstruct yesi sleep apnea of adult 12234159921 03 Active 2021 SEVERE 04/2022 Not Available [facility] 3 12:19:23 Tobacco user 704400154 Active 2017 Not Available [facility] 3 12:19:23 Testoste indy level below referenc e range 681641343 Active Not Available [facility] 3 12:19:23 Chronic obstruct yesi pulmonar y disease 69885034 Active Not Available [facility] 3 12:19:23 Nocturia 072137127 Active Not Available [facility] 3 12:19:23 Hyperkal emia 45105287 Active Not Available [facility] 3 12:19:23 [place] spotted fever 360158078 Active Not Available [facility] 3 12:19:23 Toxic effect of tobacco and nicotine 436888411 Active Not Available [facility] 3 12:19:23 Gastroes ophageal reflux disease 671986223 Active Not Available [facility] 3 12:19:23 Syncope 695333119 Active 2017 Not Available [facility] 3 12:19:23 Eruption 788825140 Active Not Available [facility] 3 12:19:23 Ganglion of hand 216914742 Active Not Available [facility] 3 12:19:24 Acute otitis externa 52664050 Completed Not Available [facility] 3 13:36:27 Hyperten sive disorder 48583983 Active Not Available [facility] 3 12:19:24 Divertic ular disease 168935931 Active 2018 Not Available [facility] 3 12:19:24 Dizzines s 288996893 Active 2021 Not Available [facility] 3 12:19:24 Hematoch ezia 329332774 Active Not Available [facility] 3 12:19:24 Obesity 638731118 Active Not Available [facility] 3 12:19:24 Chronic headache disorder 426301680 Active Not Available [facility] 3 12:19:24 Hypogona dism 15243708 Active Not Available [facility] 3 12:19:24 Cervical radiculo mohit 19900614 Active Not Available [facility] 3 12:19:24 Hyperlip idemia 98198588 Active Not Available [facility] 3 12:19:24 [facility] hyperten carlie 27931683 Active Not Available [facility] 3 12:19:24 Tinea pedis 0794615 Active 2016 Not Available [facility] 3 12:19:24 Chronic bronchit is 06103968 Active 2016 Not Available [facility] 3 12:19:24 Otitis media 02969847 Active 2016 Not Available [facility] 3 12:19:24 Smoker 46448275 Active Not Available [facility] 3 12:19:24 Tinea corporis 71334814 Active 2016 Not Available [facility] 3 12:19:24 Primary fibromya lgia syndrome 65926290 Active Not Available [facility] 3 12:19:24 Sensorin eural hearing loss in left ear 49289847647 109 Active 2022 Not Available [facility] 3 12:19:23 Osteoart hritis 561133159 Active 2022 Not Available [facility] 3 12:19:24 Vertigo 501423498 Active 2022 Not Available [facility] 3 12:19:24 Hypertri glycerid emia 362573809 Active 2022 Not Available [facility] 3 12:19:24 Type 2 diabetes mellitus without complica tion 543403363 Active 2022 Not Available [facility] 3 12:19:24 Thoracic back pain 653277354 Active 2022 Haim Colunga MD [address], [address], [place], [address] , [place] [facility] 3 16:01:44 Low back pain 999863799 Active 2022 Haim Colunga MD [address], [address], [place], [address] , [place] [facility] 3 16:02:04 Polyarth ropathy 76359450 Active 2022 Haim Colunga MD [address], [address], [place], [address] , [place] [facility] [facility] 3 16:16:02 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 82890592 Active 2022 Haim Colunga MD [address], [address], [place], [address] , [place] [facility] 3 11:31:44 Otalgia of left ear 1098788828 Active 2022 Sejal Singh NP [address], [address], [place], [address] , [place] [facility] 3 08:06:05 Hypergly cemia 93105790 Active 2022 Sejal Singh NP [address], [address], [place], [address] , [place] [facility] 3 08:06:21 Recurren t falls 680953583 Active 2023 Haim Colunga MD [address], [address], [place], [address] , [place] [facility] 4 10:44:55 Peripher al arterial occlusiv e disease 686849943 Active 2023 HELDER Segovia [address], [address], [place], [address] , [employer] 4 14:25:29 Hypercho lesterol emia 84879288 Active 2023 HELDER Segovia [address], [address], [place], [address] , [employer] 4 14:53:38 Neuropat hy 317197679 Active 2023 HELDER Segovia [address], [address], [place], [address] , [employer] 4 11:34:22 Weakness of bilatera l lower limb Active 2023 HELDER Segovia [address], [address], [place], [address] , [employer] 4 11:37:39 Rupture of extensor tendon of thumb 607785934 Active 2023 HELDER Segovia [address], [address], [place], [address] , [employer] 4 11:39:29 Ossifica tion of ligament um flavum 5144298729 Active 2023 HELDER Segovia [address], [address], [place], [address] , [employer] 4 12:53:59 Disorder of ligament of vertebra l joint 17088716882 9103 Active 2023 HELDER Segovia [address], [address], [place], [address] , [employer] 4 12:54:28 Dehiscen ce of external surgical incision wound 13061845904 9108 Active 2023 HELDER Segovia [address], [address], [place], [address] , [facility] 4 11:16:44 Inapprop riate sinus tachycar bette 103335047 Active 2024 HELDER Segovia [address], [place], [address] , [place] [facility] 5 13:06:18 Dysfunct ion of bilatera l eustachi an tubes 49893909012 34049 Active 2024 HELDER Segovia [address], [place], [address] , [facility] 5 13:53:05 Impairme nt of balance 392836341 Active 2024 HELDER Segovia [address], [address], [place], [address] , [facility] 5 13:54:00 Scaly skin 192879216 Active 2024 HELDER Segovia [address], [place], [address] , [facility] 5 10:27:25 Well controll ed type 2 diabetes mellitus 588101144 Active 2024 HELDER Segovia [address], [place], [address] , [facility] 5 10:28:55 Colitis 92378867 Active 2024 HELDER Segovia [address], [place], [address] , [facility] 5 15:13:08 Pruritic rash 33177857 Active 2024 HELDER Segovia [address], [place], [address] , [facility] 5 11:59:12 Notes:Sejal Singh NP [facility] home sleep study 05/07/22 AHI = [address] [facility] titration sleep study 07/31/22 Respironics small/medium Tasneem nasal mask @ 10 cmH2O Medical History: Syncope Depression COVID infection 07/2020 <50% bilateral ICA stenosis Nicotine dependence Obesity with very severe OSAHS, AHI = 47, 05/07/22, on CPAP c/o [facility] T2DM Mixed hyperlipidemia Hypertension EF 56% CAD s/p AWMI JACOB Diverticulosis Hypogonadism ED PLMD Cervical radiculopathy OA Fibromyalgia Tinea corporis/pedis Some problems listed in Document: #[id number] could not be added to this patient's chart. Please review this document and add these problems to the patient's chart manually as needed. Problem Notes None recorded. Procedures Surgical History Date Name Laterality Status Provider Name and Address Organization Details Recorded Time 03/25/20 24 repair of tendon of hand completed Sejal Stringer RN [facility] 04/02/2024 11:03:27 02/23/20 23 Transitional_Ca re_Management completed Sejal Singh NP [address] [place] [address], [place], [address], [facility] 02/21/2023 17:01:16 04/28/20 21 colonoscopy completed Not Available [facility] 07/19/19 13:35:46 07/28/19 21 Rotator cuff surgery completed Not Available [facility] 07/18/2022 13:35:46 05/20/18 88 Back Surgery completed Not Available [facility] 023 13:35:46 total replacement of hip completed Not Available [facility] 07/18/2022 13:35:46 Hernia Repair completed Not Available Replaced by [facility] 07/18/2022 13:35:46 Imaging Results None recorded. Procedure Notes None recorded. Medical Equipment None Reported. Allergies Allergen ID Allergen Name Allergen Category Reaction Reaction Severity Criticality Documentation Date Start Date Code Code System Note Provider Name and Address Organization Details Recorded Time 23304 Product containin g penicilli n (product) medicatio n hives Not available Not available 07/18/2022 90676 8001 SNOMED Not Available [facility] 13:38:28 Medications Name Sig Start Date Stop Date Status Note LastModified by Organization Details LastModified Time BD Luer-Mandi Syringe 3 mL 23 x 1 U FOR INJECTIO NS. 08/10 completed Not Available Not Available Not Available celecoxib 200 mg capsule TAKE 1 CAPSULE BY MOUTH DAILY WITH FOOD active Not Available Not Available No t Available cyclobenz aprine 10 mg tablet TAKE 1 TABLET BY MOUTH 3 TIMES A DAY NEEDED FOR SPASMS active Not Available Not Available No t Available terbinafi ne HCl 1 % topical cream APPLY TO THE AFFECTED AND SURROUND ING AREAS of skin on bilatera l feet BY TOPICAL ROUTE twice DAILY until gone 01/08 completed Not Available Not Available Not Available hydrocodo ne 7.5 mg-ibupro fen 200 mg tablet as needed active Not Available Not Available No t Available bupropion HCl SR 150 mg tablet,12 hr sustained -release TAKE ONE TABLET TWICE DAILY active Not Available Not Available No t Available carvedilo l 6.25 mg tablet active Not Available Not Available Not Available prednison e 10 mg tablet TAKE 2 TABS DAILY X5 DAYS, 1 TAB DAILY X5 DAYS, THEN 1 TAB EVERY OTHER DAY UNTIL GONE 08/27 completed Not Available Not Available Not Available doxycycli ne hyclate 100 mg capsule TAKE 1 CAPSULE BY MOUTH TWICE A DAY FOR 10 DAYS 02/22 completed Not Available Not Available Not Available carvedilo l 12.5 mg tablet Take 1 tablet(s ) twice a day by oral route for 90 days. 01/08 completed Not Available Not Available Not Available nabumeton e 750 mg tablet as needed active Not Available Not Available No t Available clindamyc in HCl 300 mg capsule TAKE 1 CAPSULE BY MOUTH EVERY 8 HOURS 01/22 completed Not Available Not Available Not Available lisinopri l 20 mg-hydroc hlorothia zide 12.5 mg tablet active Not Available Not Available No t Available azithromy ana 250 mg tablet TAKE 1 TABLET BY MOUTH EVERY DAY 02/22 completed Not Available Not Available Not Available ibuprofen 800 mg tablet 07/29 completed Not Available Not Available Not Available metoprolo l succinate ER 50 mg tablet,ex tended release 24 hr TAKE 1 TABLET BY MOUTH EVERY DAY DIRECTED active Not Available Not Available No t Available hydrocodo ne 5 mg-acetam inophen 325 mg tablet 04/02 completed Not Available Not Available Not Available lisinopri l 20 mg tablet TAKE ONE TABLET DAILY 01/08 completed Not Available Not Available Not Available prednison e 20 mg tablet PLEASE SEE ATTACHED FOR DETAILED DIRECTIO NS 07/29 completed Not Available Not Available Not Available testoster one cypionate 100 mg/mL intramusc ular oil Inject 0.5 mL every 4 weeks by intramus cular route for 90 days. active Not Available Not Available No t Available clindamyc in HCl 150 mg capsule 08/16 completed Not Available Not Available Not Available Accu-Chek Softclix Lancets 08/10 completed Not Available Not Available Not Available metronida zole 500 mg tablet TAKE 1 TABLET BY MOUTH EVERY 12 HOURS FOR 7 DAYS 09/29 completed Not Available Not Available Not Available hydroxyzi ne HCl 50 mg tablet TAKE 1 TABLET BY MOUTH FOUR TIMES A DAY NEEDED FOR 10 DAYS active Not Available Not Available No t Available acetamino phen 300 mg-codein e 30 mg tablet TAKE 1 TABLET BY MOUTH FOUR TIMES DAILY NEEDED FOR PAIN 02/22 completed Not Available Not Available Not Available amlodipin e 5 mg tablet Take 1 tablet every day by oral route for 30 days. active Not Available Not Available No t Available ciproflox acin 500 mg tablet TAKE 1 TABLET BY MOUTH EVERY 12 HOURS FOR 7 DAYS 09/29 completed Not Available Not Available Not Available sulfameth oxazole 800 mg-trimet hoprim 160 mg tablet TAKE 1 TABLET BY MOUTH EVERY 12 HOURS DIRECTED FOR 7 DAYS 06/04 completed Not Available Not Available Not Available aspirin 81 mg tablet,de layed release Take 1 tablet every day by oral route. 2020 active Not Available Not Available Not Avai lable tramadol 50 mg tablet Take 1 tablet every 8 hours by oral route as needed for 7 days. 06/04 completed Not Available Not Available Not Available acyclovir 800 mg tablet 11/05 completed Not Available Not Available Not Available nortripty line 25 mg capsule 06/07 completed Not Available Not Available Not Available cyprohept adine 4 mg tablet 07/14 completed Not Available Not Available Not Available meloxicam 7.5 mg tablet TAKE 1 TABLET BY MOUTH DAILY WITH FOOD 04/11 completed Not Available Not Available Not Available terbinafi ne HCl 250 mg tablet TAKE 1 TABLET BY MOUTH EVERY DAY WITH FOOD FOR 2 WEEKS. STOP STATINS WHILE TAKING THIS MEDICATI ON 04/11 completed Not Available Not Available Not Available amitripty line 25 mg tablet at night active Not Available Not Available N ot Available imiquimod 5 % topical cream packet 04/24 completed Not Available Not Available Not Available Kenalog 10 mg/mL suspensio n for injection In office injectio n administ ered by the provider 09/13 completed [facility]: [id number] 4-20 Not Available Not Available Not Available meclizine 25 mg tablet Take 1 tablet every 8 hours by oral route as needed for 7 days. 01/01 completed Not Available Not Available Not Available benzonata te 100 mg capsule TAKE 1 CAPSULE BY MOUTH THREE TIMES A DAY FOR 10 DAYS 02/22 completed Not Available Not Available Not Available hydrocodo ne 7.5 mg-acetam inophen 325 mg tablet TAKE 1 TABLET BY MOUTH EVERY 4 6 HOURS NEEDED FOR PAIN 09/13 completed Not Available Not Available Not Available triamcino lone acetonide 0.1 % topical ointment APPLY 1 APPLICAT ION SPARINGL Y ONTO THE AFFECTED AREA(S) ON THE SKIN EVERY 12 HOURS NEEDED active Not Available Not Available No t Available lisinopri l 10 mg tablet TAKE 1 TABLET BY MOUTH EVERY DAY IN THE MORNING 09/03 completed Not Available Not Available Not Available lansopraz ole 30 mg capsule,d elayed release TAKE 1 CAPSULE BY MOUTH EVERY DAY active Not Available Not Available No t Available prednison e 50 mg tablet TAKE 1 TABLET BY MOUTH EVERY DAY 02/22 completed Not Available Not Available Not Available propranol ol ER 80 mg capsule,2 4 hr,extend ed release 06/07 completed Not Available Not Available Not Available gabapenti n 300 mg capsule 06/07 completed Not Available Not Available Not Available isomethep tene-dich loralphen -acetamin ophen 65 mg-100 mg-325 mg capsule 06/07 completed Not Available Not Available Not Available diclofena c sodium 75 mg tablet,de layed release active Not Available Not Available Not Available etodolac 400 mg tablet TAKE ONE TABLET TWICE DAILY WITH FOOD 08/16 completed Not Available Not Available Not Available hydroxyzi ne HCl 25 mg tablet Take 1 tablet every 6-8 hours by oral route as needed for 7 days. active Not Available Not Available No t Available lisinopri l 5 mg tablet TAKE 1 TABLET EVERY DAY 01/01 completed Not Available Not Available Not Available mupirocin 2 % topical ointment APPLY TO THE AFFECTED AREA 3 TIMES DAILY (FIRST AID) 01/08 completed Not Available Not Available Not Available diclofena c sodium 50 mg tablet,de layed release 11/05 completed Not Available Not Available Not Available [place] 10 mg-325 mg tablet Take 1 tablet every 4 hours by oral route. 07/08 completed Not Available Not Available Not Available lisinopri l 10 mg-hydroc hlorothia zide 12.5 mg tablet active Not Available Not Available No t Available testoster one cypionate 200 mg/mL intramusc ular oil ADMINIST ER 1 ML IN THE MUSCLE 1 TIME EVERY 14 DAYS 04/24 completed Not Available Not Available Not Available ibuprofen 600 mg tablet TK 1 T PO Q 6 TO 8 H PRF PAIN active Not Available Not Available No t Available levofloxa ana 500 mg tablet Take 1 tablet every 24 hours by oral route. 07/08 completed Not Available Not Available Not Available methylpre dnisolone 4 mg tablets in a dose pack TAKE 6 TABLETS ON DAY 1 DIRECTED ON PACKAGE AND DECREASE BY 1 TAB EACH DAY FOR A TOTAL OF 6 DAYS active Not Available Not Available No t Available albuterol sulfate HFA 90 mcg/actua tion aerosol inhaler INHALE 1-2 PUFFS BY MOUTH EVERY 4 HOURS NEEDED FOR WHEEZING FOR 10 DAYS active Not Available Not Available No t Available losartan 50 mg-hydroc hlorothia zide 12.5 mg tablet TAKE 1 TABLET BY MOUTH EVERY DAY DIRECTED active Not Available Not Available No t Available ketorolac 60 mg/2 mL intramusc ular solution Inject 1 mL as needed by intramus cular route as directed for 1 day. 07/29 completed Not Available Not Available Not Available propranol ol 20 mg tablet active Not Available Not Available Not Available BD Luer-Mandi Syringe 3 mL 21 gauge x 1 05/21 completed Not Available Not Available Not Available ketoconaz ole 2 % topical cream 08/10 completed Not Available Not Available Not Available ondansetr on 4 mg disintegr ating tablet TAKE 1 TABLET BY MOUTH EVERY 8 HOURS NEEDED FOR NAUSEA AND VOMITING active Not Available Not Available No t Available cefdinir 300 mg capsule TAKE 1 CAPSULE BY MOUTH EVERY 12 HOURS 02/22 completed Not Available Not Available Not Available metformin ER 500 mg tablet,ex tended release 24 hr TAKE 1 TABLET BY MOUTH EVERY DAY active Not Available Not Available No t Available doxycycli ne hyclate 100 mg tablet TAKE 1 TABLET TWICE DAILY active Not Available Not Available No t Available Jenera 3 Fish Oil capsule Take 1 capsule every day by oral route. 08/10 completed Not Available Not Available Not Available ezetimibe 10 mg tablet TAKE 1 TABLET BY MOUTH DAILY active Not Available Not Available No t Available Ciprodex 0.3 %-0.1 % ear drops,yong pension active Not Available Not Available Not Available rosuvasta tin 40 mg tablet TAKE 1 TABLET BY MOUTH EVERY DAY AT NIGHT active Not Available Not Available No t Available bupropion HCl XL 150 mg 24 hr tablet, extended release Take 1 tablet every day by oral route. active Not Available Not Available No t Available metoprolo l tartrate 25 mg tablet TAKE 1/2 TABLET BY MOUTH TWICE DAILY 09/29 completed Not Available Not Available Not Available duloxetin e 30 mg capsule,d elayed release TAKE 1 CAPSULE EVERY DAY 06/04 completed Not Available Not Available Not Available duloxetin e 60 mg capsule,d elayed release TAKE 1 CAPSULE BY MOUTH EVERY DAY DIRECTED FOR 90 DAYS active Not Available Not Available No t Available sildenafi l (pulmonar y hypertens ion) 20 mg tablet TAKE 1-5 TABLETS BY MOUTH DAILY IN PM 11/02 completed Not Available Not Available Not Available pregabali n 100 mg capsule TAKE 1 CAPSULE BY MOUTH THREE TIMES A DAY NEEDED FOR 30 DAYS 06/04 completed Not Available Not Available Not Available Lyrica 75 mg capsule Take 1 capsule twice a day by oral route. active Not Available Not Available No t Available celecoxib once daily 08/09 completed Not Available Not Available Not Available lidocaine (PF) 10 mg/mL (1 %) injection solution In office injectio n administ ered by the provider 09/13 completed [facility]: [id number] 6-17 Not Available Not Available Not Available fenofibra te nanocryst allized 145 mg tablet TAKE ONE TABLET DAILY 07/11 completed Not Available Not Available Not Available testoster one 50 mg/5 gram (1 %) transderm al gel active Not Available Not Available Not Available Eletone topical cream active Not Available Not Available Not Available peg 3350-elec trolytes 236 gram-22.7 4 gram-6.74 gram-5.86 gram solution DIRECTED 11/02 completed Not Available Not Available Not Available Solu-Medr ol (PF) 125 mg/2 mL solution for injection Take 125 mg by injectio n route for 1 day. 2024 active Not Available Not Available Not Avai lable Dulera 200 mcg-5 mcg/actua tion HFA aerosol inhaler Inhale 2 puffs twice a day by inhalati on route as needed for 90 days. 09/26 completed Changed to Breo due to formular y Not Available Not Available Not Available Xarelto 10 mg tablet 06/07 completed Not Available Not Available Not Available Accu-Chek Rachel Plus test strips To check sugar, 3-4 times per day as directed . 08/10 completed Not Available Not Available Not Available Accu-Chek Rachel Plus Meter 08/10 completed Not Available Not Available Not Available Breo Ellipta 100 mcg-25 mcg/dose powder for inhalatio n INHALE 1 PUFF EVERY DAY active Not Available Not Available No t Available Trulicity 0.75 mg/0.5 mL subcutane ous pen injector INJECT 0.75 MG EVERY WEEK BY SUBCUTAN EOUS ROUTE DIRECTED FOR 28 DAYS. 04/02 completed Not Available Not Available Not Available bupropion HCl 150 mg tablet,12 hr sustained -release( smoking deterrent ) 1 tab po bid 08/16 completed Not Available Not Available Not Available Trelegy Ellipta 100 mcg-62.5 mcg-25 mcg powder for inhalatio n INHALE 1 PUFF ONCE EVERY DAY active Not Available Not Available No t Available Breztri Aerospher e 160 mcg-9mcg- 4.8mcg/ac tuation HFA aerosol inhaler INHALE 2 PUFFS BY MOUTH TWICE A DAY 02/22 completed Not Available Not Available Not Available Mounjaro 2.5 mg/0.5 mL subcutane ous pen injector INJECT 2.5 MG EVERY WEEK BY SUBCUTAN EOUS ROUTE DIRECTED FOR 28 DAYS. active Not Available Not Available No t Available Vitals Date Recorded Body height Body mass index (BMI) Body weight Body temperature Heart rate Respiratory rate Oxygen saturation Oxygen saturation in Arterial blood by Pulse oximetry Systolic blood pressure Diastolic blood pressure Provider Name and Address Organization Details Last Updated DateTime 5 175.26 cm 33.4 kg/m2 536461. 58 g 97.2 [degF] 118 /min 24 /min 94 % 94 % 160 mm[Hg] 96 mm[Hg] Sejal Stringer RN [facility] [employer] [facility] 5 12:17:01 Date Recorded Body height Body mass index (BMI) Body weight Body temperature Heart rate Respiratory rate Oxygen saturation Oxygen saturation in Arterial blood by Pulse oximetry Systolic blood pressure Diastolic blood pressure Provider Name and Address Organization Details Last Updated DateTime 5 175.26 cm 32.7 kg/m2 986262. 96 g 97.2 [degF] 96 /min 24 /min 97 % 97 % 148 mm[Hg] 90 mm[Hg] Sejal Stringer RN [facility] [employer] [facility] 5 10:12:22 Date Recorded Body height Body mass index (BMI) Body weight Body temperature Heart rate Respiratory rate Oxygen saturation Oxygen saturation in Arterial blood by Pulse oximetry Systolic blood pressure Diastolic blood pressure Provider Name and Address Organization Details Last Updated DateTime 5 175.26 cm 32.2 kg/m2 05960.1 9 g 97.3 [degF] 89 /min 24 /min 94 % 94 % 130 mm[Hg] 90 mm[Hg] Sejal Stringer RN [facility] [employer] [facility] 5 11:53:11 Date Recorded Body height Body mass index (BMI) Body weight Body temperature Heart rate Respiratory rate Oxygen saturation Oxygen saturation in Arterial blood by Pulse oximetry Systolic blood pressure Diastolic blood pressure Provider Name and Address Organization Details Last Updated DateTime 4 175.26 cm 34.7 kg/m2 370185. 61 g 97.3 [degF] 77 /min 20 /min 99 % 99 % 150 mm[Hg] 11 mm[Hg] Sejal Stringer RN [facility] [employer] [facility] 4 11:15:49 Date Recorded Body height Body mass index (BMI) Body weight Body temperature Heart rate Respiratory rate Oxygen saturation Oxygen saturation in Arterial blood by Pulse oximetry Systolic blood pressure Diastolic blood pressure Provider Name and Address Organization Details Last Updated DateTime 4 175.26 cm 32.9 kg/m2 770392. 31 g 97.2 [degF] 101 /min 20 /min 98 % 98 % 150 mm[Hg] 100 mm[Hg] Sejal Stringer RN [place] [facility] [place] [employer] 4 11:02:38 Social History Question Answer Notes LastModified by Organizat ion Details LastModified Time Tobacco Smoking Status Current Every Day Smoker Not Available [facility] 07/18/2022 13:35:40 Do You Have An Advance Directive? No MIGRATION.33570 [id number] Information not available 07/18/2022 Are You Blind Or Do You Have Difficulty Seeing? No MIGRATION.80929 80090 Information not available 07/18/2022 Is Blood Transfusion Acceptable In An Emergency? Yes Information not available 11/02/2022 What Is Your Level Of Caffeine Consumption? Occasional MIGRATION.54773 54966 Information not available 07/18/2022 How Much Tobacco Do You Chew? None MIGRATION.12956 00053 Information not available 07/18/2022 What Is Your Code Status? Full Code MIGRATION.05804 [id number] Information not available 07/18/2022 In The 14 Days Before Symptom Onset, Have You Had Close Contact With A Laboratory-confi rmed COVID-19 While That Case Was Ill? No MIGRATION.80688 72763 Information not available 07/18/2022 In The 14 Days Before Symptom Onset, Have You Had Close Contact With A Person Who Is Under Investigation For COVID-19 While That Person Was Ill? No MIGRATION.37167 52842 Information not available 07/18/2022 Are You Deaf Or Do You Have Serious Difficulty Hearing? No MIGRATION.26835 10836 Information not available 07/18/2022 What Type Of Diet Are You Following? REGULAR MIGRATION.69272 70364 Information not available 07/18/2022 Which Illicit Or Recreational Drugs Have You Used? None MIGRATION.83019 97842 Information not available 07/18/2022 How Many Days Of Moderate To Strenuous Exercise, Like A Brisk Walk, Did You Do In The Last 7 Days? 2 Information not available 08/28/2023 On Those Days That You Engage In Moderate To Strenuous Exercise, How Many Minutes, On Average, Do You Exercise? 60 Information not available 08/28/2023 Have There Been Any Changes To Your Family Or Social Situation? No MIGRATION.42830 04328 Information not available 07/18/2022 What Is The Fluoride Status Of Your Home? Unknown MIGRATION.23873 44165 Information not available 07/18/2022 Are There Any Guns Present In Your Home? No MIGRATION.35913 07275 Information not available 07/18/2022 Do You Use Insect Repellent Routinely? Yes MIGRATION.55558 76176 Information not available 07/18/2022 Where Do You Live? 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 No MIGRATION.84058 23819 Information not available 07/18/2022 What Was The Date Of Your Most Recent Tobacco Screening? 11/01/2021 MIGRATION.19699 33453 Information not available 07/18/2022 How Many Children Do You Have? 0 Information not available 08/28/2023 Have You Ever Been Counseled For Unhealthy Alcohol Use? No MIGRATION.40272 50156 Information not available 07/18/2022 Do You Have Any Pets? Yes Information not available 02/22/2023 What Is Your Relationship Status? MIGRATION.67688 73132 Information not available 07/18/2022 Do You Use Your Seat Belt Or Car Seat Routinely? Yes MIGRATION.25876 64209 Information not available 07/18/2022 Do You Have Smoke And Carbon Monoxide Detectors In Your Home? Yes MIGRATION.89147 73238 Information not available 07/18/2022 At What Age Did You Start Smoking Tobacco? 36 Information not available 08/28/2023 Are You Passively Exposed To Smoke? No MIGRATION.01634 11766 Information not available 07/18/2022 Are There Any Smokers In Your House? Yes MIGRATION.79729 08289 Information not available 07/18/2022 How Much Tobacco Do You Smoke? 0.5 PPD MIGRATION.22605 38544 Information not available 07/18/2022 Do You Participate In Social Media? No Information not available 11/02/2022 What Types Of Sporting Activities Do You Participate In? Golf,gym Information not available 11/02/2022 Do You Use Sunscreen Routinely? Yes MIGRATION.72922 14900 Information not available 07/18/2022 Have You Recently Traveled Abroad? No MIGRATION.67921 47054 Information not available 07/18/2022 Do You Have Difficulty Walking Or Climbing Stairs? No MIGRATION.36725 22683 Information not available 07/18/2022 Do You Have Any Dietary Restrictions? No MIGRATION.29874 01663 Information not available 07/18/2022 Sex: Unknown Functional Status Question Answer Note LastModified by [employer] ion Details LastModified Time Do you or have you ever used smokeless tobacco? Never used smokeless tobacco MIGRATION.70275 83333 Information not available 07/18/2022 Are you currently employed? No Information not available 08/28/2023 Do you have transportation difficulties? No MIGRATION.73281 58539 Information not available 07/18/2022 Are you able to care for yourself? Yes MIGRATION.09107 68788 Information not available 07/18/2022 Do you have difficulty dressing or bathing? No MIGRATION.29869 62997 Information not available 07/18/2022 Do you or have you ever used e-cigarettes or vape? Never used electronic cigarettes MIGRATION.67739 61241 Information not available 07/18/2022 What is your exercise level? Occasional Information not available 08/28/2023 Do you use any illicit or recreational drugs? No MIGRATION.98662 37541 Information not available 07/18/2022 Do you or have you ever used any other forms of tobacco or nicotine? No MIGRATION.16774 77238 Information not available 07/18/2022 What is your level of alcohol consumption? Occasional socially MIGRATION.60191 61109 Information not available 07/18/2022 Are you able to walk? YESWOREST MIGRATION.39424 49898 Information not available 07/18/2022 Do you have difficulty doing errands alone? No MIGRATION.16324 32054 Information not available 07/18/2022 What is your occupation? retired MIGRATION.09417 21854 Information not available 07/18/2022 Mental Status Question Answer Note LastModified by Organizat ion Details LastModified Time Do you feel stressed (tense, restless, nervous, or anxious, or unable to sleep at night)? QE4357-1 MIGRATION.[id number] 26 Information not available 07/18/2022 Do you have difficulty concentrating, remembering or making decisions? No MIGRATION.97189586 26 Information not available 07/18/2022 Family History Relationship Description Onset Age of this Age Resolved Age Notes LastModified by Organization Details LastModified Time Brother Malignant neoplasm of lung 58 MIGRATION.[id number] Not available 07/18/2022 13:35:46 Father Hypertensive disorder MIGRATION.090 [id number] Not available 07/18/2022 13:35:46 Mother Hypertensive disorder MIGRATION.888 [id number] Not available 07/18/2022 13:35:46 Mother Diabetes mellitus MIGRATION.906 [id number] Not available 07/18/2022 13:35:46 Medical History Condition Response COPD Y HIGH CHOLESTEROL / HYPERLIPIDEMIA Y PVD Y DEPRESSION (INCLUDING POST ) Y HAVE YOU BEEN HOSPITALIZED OR SEEN IN [facility] ER IN THE PAST YEAR ? Y OBESITY Y GERD/NAUSEA Y DIABETES, TYPE Y HEARTBURN / REFLUX Y ASTHMA Y HEADACHES/MIGRAINES Y SEIZURES/EPILEPSY Y DIZZINESS Y HYPERTENSION Y ANXIETY DISORDER Y Immunizations Vaccine Type Date Status Note Provider [facility] e and Address Organization Details Recorded Time Respiratory syncytial virus (RSV) MAB, unspecified 3 completed Sejal Singh NP [address] [place] [address], [id number], [facility] 04/05/2023 07:15:54 RSV, recombinant, protein subunit RSVpreF, adjuvant reconstituted, 0.5 mL, PF 3 completed Sejal Stringer RN null, [facility] [employer] 09/29/2024 11:47:46 Influenza, split virus, quadrivalent, PF 3 completed Sejal Stringer RN null, [place] [facility] [place] [facility] [employer] 02/22/2023 12:11:43 pneumococcal polysaccharide PPV23 3 completed OLIVA Seth null, [facility] [employer] 04/16/2023 12:04:02 SARS-COV-2 (COVID-19) vaccine, UNSPECIFIED 1 completed Not Available [employer] 07/18/2022 13:38:27 SARS-COV-2 (COVID-19) vaccine, UNSPECIFIED completed Not Available [facility] 07/18/2022 13:38:27 Influenza, split virus, trivalent, preservative 5 completed Not Available [facility] 07/18/2022 13:38:27 Influenza, split virus, trivalent, preservative 4 completed Not Available [facility] 07/18/2022 13:38:27 pneumococcal polysaccharide PPV23 4 completed Not Available [facility] 07/18/2022 13:38:28 Tdap 7 completed Not Available [facility] 07/18/2022 13:38:28 Influenza, split virus, quadrivalent, PF 7 completed Not Available [facility] 07/18/2022 13:38:28 Past Encounters Encounter ID Performer Location Encounter Start Date Encounter Closed Date Diagnosis/Indication Diagnosis SNOMED-CT Code Diagnosis ICD10 Code Diagnosis Note [id number] Haim Colunga MD [address] [address] 08/09/2020 00:00:00 08/09/2020 11:46:48 [id number] Haim Colunga MD [address] [address] 08/16/2020 00:00:00 08/16/2020 10:45:14 [id number] Haim Colunga MD [address] [address] 09/13/2020 00:00:00 09/13/2020 16:01:41 [id number] _ATHN_MIGR ATION_1 _ATHENA_M IGRATION_ DEFAULT_1 _1 , 12/14/2020 00:00:00 12/14/2020 12:45:20 [id number] Haim Colunga MD [address] [address] 04/11/2021 00:00:00 04/11/2021 10:45:11 [id number] Haim Colunga MD [facility] [address] 06/20/2021 00:00:00 06/20/2021 15:56:02 [id number] Haim Colunga MD [address] [address] 11/02/2021 00:00:00 11/02/2021 12:13:31 [id number] Sejal Singh NP [address] [address] 01/02/2022 00:00:00 01/02/2022 11:04:31 [id number] Haim Colunga MD [address] [address] 04/24/2022 00:00:00 04/24/2022 13:02:26 [id number] Cecilio Sanchez MD [facility] [place] [address] [place] [address] 08/15/2022 14:39:18 08/15/2022 14:57:12 Asymmetrical sensorineural hearing loss 408532707 H90.5 Otalgia of left ear 1010 207426 H92.02 [id number] Sejal Singh NP [address] [address] 11/02/2022 08:45:43 11/02/2022 09:23:27 Otalgia of left ear 3789670573 H92.02 FU with ENT Daniel Hyperlipidemia 83270970 E78.5 Lipid, BMP, Hepatic.Ze tia 10 mgRosuvast atin 40 mg po nightly. Hypertensive disorder 38 428613 I10 ASA 81 mg po daily.Saray nopril 5 mg po daily.Meto prolol tartrate 25 mg po daily. Chronic ob structive pulmonary disease 15732098 J44.9 Breztri Nocturia 922793000 R35.1 Osteoarthritis 751606799 M19.90 Celecoxib. , flexeril duloxetine from dr. thakkar. Gastroesop hageal reflux disease 284378756 K21.9 lansoprazo le [id number] Haim Colunga MD [address] [address] 01/22/2023 09:21:53 01/22/2023 10:02:05 Dizziness of unknown cause 139755904 R42 Vertigo 515315410 R42 Hypertensive disorder 38 999303 I10 Hyperlipidemia 81305367 E78.5 Hypertriglyceridemia 302 769080 E78.2 Contusion of left chest wall 6421543402 0925091 S20.212A Lt Mass of chest wall 12227 4000 R22.2 Lt Obesity 343125187 E66.9 [id number] Sejal Singh NP [address] [address] 02/22/2023 09:49:08 02/22/2023 10:55:42 Prediabetes 336962279 R73.03 A1C, BMP, urine microalbum in.Metform in ER 500 mg po daily Hypertriglyceridemia 302 370581 E78.2 Lipid pane. Trigs were 400s. Administra tion of influenza vaccine 10786744 Z23 Post-disch arge follow-up 580456147 Z09 No further pneumonia symptoms (although xray chest did not confirm pneumonia) . Likely COPD exacerbati on.AXEL non compliant with CPAP. Obstructiv e sleep apnea syndrome 43674429 G47.33 Needs to wear CPAP [id number] Haim Colunga MD [address] [address] 04/02/2023 15:47:14 04/02/2023 16:20:29 Thoracic back pain 704937986 M54.6 Low back pain 034271731 M54.50 History of lumbar fusion 1660079076 9106 Z98.1 Obesity 402617878 E66.9 Polyarthropathy 65996435 M13.0 [id number] Haim Colunga MD [address] [address] 04/16/2023 11:26:28 04/16/2023 11:58:09 Thoracic back pain 526097977 M54.6 Low back pain 582327827 M54.50 History of lumbar fusion 3988176578 9106 Z98.1 Polyarthropathy 21646043 M13.0 Obesity 831241991 E66.9 Degenerati on of thoracolumbar intervertebral disc 45933976 M51.35 Active or passive immunization 721619236 Z23 [id number] Haim Colunga MD [address] [address] 07/30/2023 09:43:13 07/30/2023 10:20:16 Degeneration of thoracolumbar intervertebral disc 39983133 M51.35 Thoracic back pain 82175 8004 M54.6 Low back pain 275046537 M54.50 History of lumbar fusion 2090148151 9106 Z98.1 Polyarthropathy 31089336 M13.0 Obesity 617895531 E66.9 Recurrent falls 13222263 2 R29.6 [id number] Haim Colunga MD [address] [address] 08/28/2023 14:00:03 08/28/2023 15:56:38 Peripheral arterial occlusive disease 791887629 I73.9 Essential hypertension 34532827 I10 Type 2 bette betes mellitus without complication 751586162 E11.9 Hypercholesterolemia 136 73465 E78.5 Bite of tick 390157771 W 57.XXXS [id number] Haim Colunga MD [address] [address] 01/02/2024 11:06:52 01/02/2024 11:46:19 Osteoarthritis 874586596 M19.90 Depressive disorder 3548 9007 F32.A Neuropathy 203904953 G62 .9 Gastroesop hageal reflux disease 103588332 K21.9 Hyperlipidemia 39986076 E78.5 Weakness o f bilateral lower limb 8740931328 68490 M62.81 Rupture of extensor tendon of thumb 326831511 S56.311D [id number] Haim Colunga MD [address] [address] 04/02/2024 10:41:40 04/02/2024 11:48:14 Adult health examination 683433689 Z00.00 Health maintenanc e reviewedDi scussed healthy diet, low carbs, sugars, fats, sodiumDisc ussed 150 minutes per week cardio Dehiscence of external surgical incision wound 2729010163 58126 T81.31XA Advised to call surgeon GAB Screening for malignant neoplasm of prostate 624746650 Z12.5 Hyperlipidemia 08723316 E78.5 Currently not taking ezetimibe, will re-initiat e pending lipid panel Type 2 bette betes mellitus without complication 406486051 E11.9 Thyroid di sorder screening 193031098 Z13.29 Gastroesop hageal reflux disease 610154047 K21.9 [id number] Haim Colunga MD [address] [address] 06/04/2024 11:45:22 06/04/2024 14:06:13 Essential hypertension 90937101 I10 Osteoarthritis 058361640 M19.90 Dysfunctio n of bilateral eustachian tubes 5045600503 864642 H69.93 Advised to add Zyrtec and flonaseAdv ised to utilize aquaphor in EAC Impairment of balance 38 3527800 R26.89 Advised to FU with Neuro and continue with planned cardio appt [id number] Haim Colunga MD [address] [address] 09/03/2024 09:50:54 09/03/2024 10:42:37 Impairment of balance 682332892 R26.89 Advised to FU with Neuro and continue with planned cardio appt Syncope 898254866 R55 With disorienta tion Scaly skin 622668686 R23 .4 zoryve sample given in clinic Hypercholesterolemia 136 00537 E78.5 Check labs as follows Well contr olled type 2 diabetes mellitus 243703717 E11.9 Check lab as below Essential hypertension 74097113 I10 Dry cough with lisinopril [id number] HELDER Segovia [facility] [address] [place] [address] 09/29/2024 11:33:52 09/29/2024 12:12:34 Pruritic rash 85430627 L28.2 Diffuse errythema, crusted lesions to his back Health Concerns Section Related Observation LastModified by Organization Detai ls LastModified Time None Recorded Concern Status LastModified by Organization Details LastModified Time None Recorded Advance Directives Directive N: Payers Encounter Date Sequence Insurance Name Policy Number Policy [place] Covered Member ID [place] Member ID Guarantor Name 01/02/2024 1 [employer] (MEDICARE REPLACEMENT/A DVANTAGE - HMO) Dann Johnson [id number] Dann Johnson 04/02/2024 1 [employer] (MEDICARE REPLACEMENT/A DVANTAGE - HMO) Dann Johnson [id number] Dann Johnson 06/04/2024 1 [facility] (MEDICARE REPLACEMENT/A DVANTAGE - PPO) [id number] Dann Johnson [id number] Dann Johnson 09/03/2024 1 [facility] (MEDICARE REPLACEMENT/A DVANTAGE - PPO) [id number] Dann Johnson [id number] Dann Johnson 09/29/2024 1 [facility] (MEDICARE REPLACEMENT/A DVANTAGE - PPO) [id number] Dann Johnson [id number] Dann Johnson Notes Date Note Type Note Provider Name and Address Organization Details Recorded Time 01/02/2024 text/html Dann Johnson is a 63 year old male patient here today to FU on multiple complaints. Pins and needle of MARLON legs, has been going on for years but is getting worse. Notes after he stands too long they will stop working and they will cause him to fall. states if he attempts to have an active day, like mow the lawn, he will come inside and sit and then be unable to stand again. We will increase duloxetine, trial pregabalin, and attempt coverage for MRI lumbar spine. Educated pt on the need to be seen every 3 months for pregabalin refills, he is agreeable. Saw Dr Quick (Orthopedic) about 3 months ago, has bulging disc in back and neck. Had recent nerve conduction in his hand, Dr. Quick said torn tendon and need surgery, would like second opinion. Will frequently loose consciousness when he stands. States he will get dizzy with change of position and pass out. Had tilt table test, neg for POTS, positive for inappropriate sinus tachycardia. Will call to FU with cardiology. Would also like to see rheumatologic. All rheumatological factors are negative. Pamella Castano, [employer] [address], [place], [address], [place] [facility] 01/02/2024 12:41:32 04/02/2024 text/html Lance Johnson is a 64 year old male patient here today to FU on medications. He recently had a tendon repair of the left thumb on 03/25/24, had a suture rupture last night. There is some purulence to the left wrist. Has a history of MARLON leg weakness and back pain. Recent MRI found ?Epidural done 1 month ago He has a history of hyperlipidemia. His last lipid panel (02/22/2023) resulted a total cholesterol of 224 and triglycerides of 286. He is currently taking rosuvastatin 40 mg PO HS, ezetimibe 10 mg PO daily He has a history of hypertension. His blood pressure on arrival is 150/100. States he is having pain today. At home averages 120s-140/80-90s. He is currently taking lisinopril 5 mg PO daily and metoprolol 12.5 mg PO BID. He has type II diabetes. His last A1C (02/22/2023) was 6.7. He is currently taking metformin ER 500 mg PO daily. He has arthritic pain. This is in his back, arms, legs, hands. He is taking cyclobenzaprine 10 mg PO BID, celecoxib 200 mg PO daily and duloxetine 30 mg PO daily He has acid reflux and nausea. He takes lansoprazole 30 mg PO daily and meclizine 25 mg PO Q8 hrs PRN. He has concerns with PAD. He recently had an insurance provider visit his home and perform an ZACKERY exam finding his right leg 0.71 and left leg 0.33. He has a past diagnosis of PAD in the left leg. We will repeat padnet imaging and refer to vascular surgeon. In the past, Lance was diagnosed with Lyme disease but told that it was too late to treat. He believes that many of his health issues are related to this and would like to see a Lyme disease specialist but first needs confirmation testing. Flu shot: 02/2023, believes had for 4COVID vaccines: 07/2020, 08/2020Tdap: 07/2016Shingles: recommendedPnuemonia: 03/2014, 03/2023RSV: 03/2023, believes had thisColonoscopy: has had 2, unsure of dates.PSA: 2.50 (11/06/2022) Pamella Castano, HELDER [address] [facility], [place], [address], [place] - [employer] 04/02/2024 11:45:57 06/04/2024 text/html Lance Johnson is a 64 year old male patient here today to FU on medications. Concerns with bleeding from MARLON ears. States twice he had a continuous blood stream, most of the time he just has dried blood on a q-tip. This has been going on 4-6 month. Concerns with his equilibrium, states he feels like he is drunk when he tried to walk. states he has episodes of going blank daily. He is not aware that this is happening, he believes he is just focused. He recently had a tendon repair of the left thumb on 03/25/24, is well healing Has a history of MARLON leg weakness and back pain. Recent MRI found ?Has had 3 epidurals, is scheduled for another one next month. He has a history of hyperlipidemia. His last lipid panel (02/22/2023) resulted a total cholesterol of 224 and triglycerides of 286. He is currently taking rosuvastatin 40 mg PO HS, ezetimibe 10 mg PO daily He has a history of hypertension. His blood pressure on arrival is 160/96. States he is having pain today. At home averages 120s-140/80-90s. He is currently taking lisinopril 5 mg PO daily and metoprolol 12.5 mg PO BID. Will increase metoprolol today He has type II diabetes. His last A1C (04/02/24) was 6.4. He is currently taking metformin ER 500 mg PO daily. He has arthritic pain. This is in his back, arms, legs, hands. He is taking cyclobenzaprine 10 mg PO BID, celecoxib 200 mg PO daily and duloxetine 30 mg PO daily. He states this is not sufficient. States he is frequently waddling due to pain. Did see pain management and did not find this effective. He has acid reflux and nausea. He takes lansoprazole 30 mg PO daily and meclizine 25 mg PO Q8 hrs PRN. Flu shot: 02/2023, believes had for 4COVID vaccines: 07/2020, 08/2020Tdap: 07/2016Shingles: recommendedPnuemonia: 03/2014, 03/2023RSV: 03/2023, believes had thisColonoscopy: has had 2, unsure of dates.PSA: 2.50 (11/06/2022) Pamella Castano, HELDER [address] [facility], [facility] [address], [place], [address], [facility] [employer] 06/04/2024 13:55:06 09/03/2024 text/html Lance Johnson is a 64 year old male patient here today to FU on medications. Concerns with his equilibrium, states he feels like he is drunk when he tried to walk. He does not want to see neurology, was cleared by ENT states he has episodes of going blank daily. He is not aware that this is happening, he believes he is just focused. expresses concerns of whole body gayatri, states this has been daily for the last 3 weeks. States his hands turns in and he will lose consciousness. Afterwards will be confused 10-15 minutes. Lance does not remember these episodes. Has a history of MARLON leg weakness and back pain. Recent MRIHas had 3 epidurals, is scheduled for another one next month. He has a history of hyperlipidemia. His last lipid panel (04/02/24) resulted a total cholesterol of 224 and triglycerides of 286. He is currently taking rosuvastatin 40 mg PO HS, ezetimibe 10 mg PO daily He has a history of hypertension. His blood pressure on arrival is 148/90. States he is having pain today. At home averages 120s-140/80-90s. He is currently taking lisinopril 5 mg PO daily and metoprolol 12.5 mg PO BID. Will increase metoprolol today He has type II diabetes. His last A1C (04/02/24) was 6.4. He is currently taking metformin ER 500 mg PO daily. He has arthritic pain. This is in his back, arms, legs, hands. He is taking cyclobenzaprine 10 mg PO BID, celecoxib 200 mg PO daily and duloxetine 30 mg PO daily. He states this is not sufficient. States he is frequently waddling due to pain. Did see pain management and did not find this effective. He has acid reflux and nausea. He takes lansoprazole 30 mg PO daily and meclizine 25 mg PO Q8 hrs PRN. Concerns with lesions on his back along the left side of his spine. Possibly shingles. Flu shot: 02/2023, believes had for OVID vaccines: 07/2020, 08/2020Tdap: 07/2016Shingles: recommendedPnuemonia: 03/2014, 03/2023RSV: 03/2023, believes had thisColonoscopy: has had 2, unsure of dates.PSA: 2.50 (11/06/2022) HELDER [address] [employer], [employer], [place], [address], [employer] 09/03/2024 10:40:35 09/29/2024 text/html Dann Johnson is a 64 year old male patient here today for concerns of a rash This began as pustules on his back, these have now become large crusted lesion. He has diffuse itching, worse on his MARLON hands and feet and generalize errythema. Itching is worse at night. HELDER [address], [employer], [place], [address], [employer] 09/29/2024 13:19:04
--- OUTSIDE RECORDS SUMMARY | 2024-10-20 14:08 | XMS_ITS | Encounter Summary ---
Author Organization [facility] Address [address] [place] [address] Phone Care Team Providers Care Monogram Operator Name Role Phone Sejal Singh APRN, CNP Primary Care Pro vider Reason for Referral * Radiology Services (Routine) - Closed Specialty Diagnoses / Procedures Referred By Nick silva Referred To Contact Radiology Diagnoses Pre-op testing Procedures EKG 12 LEAD Raulito Cullen MD Phone: tel: fax: Referral ID Status Reason Start Date Expiration Date Visits Re quested Visits Authorized [id number] Closed 07/20/2020 1 1 MAKER * Radiology Services (Routine) - Closed Specialty Diagnoses / Procedures Referred By Nick silva Referred To Contact Radiology Diagnoses Pre-op testing Procedures XR CHEST 2 VIEWS Raulito Cullen MD Phone: tel: fax: Referral ID Status Reason Start Date Expiration Date Visits Re quested Visits Authorized [id number] Closed 07/20/2020 1 1 MAKER Encounter Details Date Type Department Care Team (Latest Contact Info) Description 07/20/2020 Transcribe Orders [facility] Preop/Pacu II [address] [place] [id number] Raulito Cullen MD [address] [place] [address] Pre-op testing (Primary Dx) Social History Tobacco [...] COVID-19? No / Unsure 07/20/2020 2:59 PM CORD MAKER documented as of this encounter Plan of Treatment Not on file documented as of this encounter Results * SARS-COV-2 BY MOLECULAR (07/24/2020 9:02 AM CORD MAKER) SARSCOV2 NOT DETECTED (Referen ce Range for this test is Not Detected ) [facility] THERMOFISHER FAST DX 07/25/2020 10:35 AM CORD MAKER [facility] Comment:This test was perfor med by a RT-PCR method. Other NASOPHARYNGEAL STRUCTURE / Unknown Non-Phlebotomy Collection / Unknown 07/24/2020 9:02 AM CORD MAKER 07/24/2020 10:04 AM CORD MAKER Narrative [facility] - 07/25/2020 10:35 AM CORD MAKER Authorized Fact Sheets about this test for providers and patients are available at: https://www.fda.gov/medical-devices/mmecgjkqk-fjziydtthq-uauddws-devices/emergen cy-us e-authorizations us Raulito Cullen MD MICROBIOLOGY - GENERAL ORDERABLE S Final Result [facility] [address] [place] [address], [place] * XR CHEST 2 VIEWS (07/21/2020 11:23 AM CORD MAKER) Anatomical Region Laterality Modality Chest N/A Digital Radiogra phy 07/21/2020 6:31 PM CORD MAKER Impressions 07/21/2020 6:34 PM CORD MAKER IMPRESSION: No radiographic evidence of an acute cardiopulmonary abnormality. Narrative 07/21/2020 6:34 PM CORD MAKER EXAM DESCRIPTION: XR CHEST 2 VIEWS REASON [...] signed by Renaldo Lugo : Report ID: [id number] Reading Location: [id number] Procedure Note Renaldo Lugo MD - 07/21/2020 [...] signed by Renaldo Lugo : Report ID: [id number] Reading Location: [id number] IMPRESSION: No radiographic evidence of an acute cardiopulmonary abnormality. us Raulito Cullen MD IMG DIAGNOSTIC ORDERABLES Final Result * EKG 12 LEAD (07/21/2020 10:50 AM CORD MAKER) Ventricular Rate BPM EXTERNAL EKG Atrial Rate BPM EXTERNAL EKG P-R Interval 138 ms EXTERNAL EKG QRS Duration 88 ms EXTERNAL EKG Q-T Duration 338 ms EXTERNAL EKG QTC CALCULATION 436 ms EXTERNAL EKG P Bronson 58 degrees EXTERNAL EKG R Bronson 82 degrees EXTERNAL EKG T Bronson 40 degrees EXTERNAL EKG 07/21/2020 10:5 0 AM CORD MAKER Impressions EXTERNAL EKG - 07/22/2020 10:28 AM CORD MAKER Sinus tachycardia Comparison Summary: No significant change [...] Gissel Reynolds on 07/22/2020 10:28:13 AM Raulito uCllen MD IMG ECG ORDERABLES Final Result EXTERNAL EKG * (ABNORMAL) CMP (COMPREHENSIVE METABOLIC PANEL) (07/21/2020 10:43 AM CORD MAKER) SODIUM 137 136 - 144 mmol/L 07/21/2020 12:25 PM CORD MAKER [facility] POTASSIUM 4.4 3.5 - 5.1 mmol/L 07/21/2020 12:25 PM CORD MAKER [facility] CHLORIDE 99(L) 100 - 110 mmol/L 07/21/2020 12:25 PM CORD MAKER [facility] CO2, VENOUS 26 22 - 32 mmol/L 07/21/2020 12:25 PM [facility] ANION GAP 16.4 8.0 - 20.0 mmol/L 07/21/2020 12:25 PM [facility] GLUCOSE 100(H) 70 - 99 mg/dL 07/21/2020 12:25 PM [facility] BUN 11 6 - 20 mg/dL 07/21/2020 12:25 PM [facility] CREATININE, BLOOD 0.67(L) 0.80 - 1.30 mg/dL 07/21/2020 12:25 PM [facility] BUN/CREATININE RATIO 16 12 - 20 ratio 07/21/2020 12:25 PM [facility] TOTAL PROTEIN 7.2 6.0 - 8.3 g/dL 07/21/2020 12:25 PM [facility] ALBUMIN 4.4 3.5 - 5.2 g/dL 07/21/2020 12:25 PM [facility] Comment: The colormetric methods used for the determination of Albumin may lead to falsely elevated test results in patients suffering from renal failure or insufficiency due to interference with other proteins. A/G RATIO 1.6 1.0 - 2.0 07/21/2020 12:25 PM [facility] CALCIUM 9.1 8.9 - 10.3 mg/dL 07/21/2020 12:25 PM [facility] T BILI 0.5 <=1.2 mg/dL 07/21/2020 12:25 PM [facility] SGOT (AST) 39 <=40 U/L 07/21/2020 12:25 PM [facility] SGPT (ALT) 37 <=41 U/L 07/21/2020 12:25 PM [facility] ALKALINE PHOSPHATASE 66 40 - 130 U/L 07/21/2020 12:25 PM [facility] GFR, EST. NONAFRICAN >60 >=60 07/21/2020 12:25 PM CORD MAKER [facility] GFR, EST. >60 >=60 021 12:25 PM CORD MAKER [facility] Comment: Creatinine Clearance is the preferred criteria for selecting drug dose adjustments in renally impaired patients. The GFR is provided as additional pertinent clinical information. GFR is reported in mL/min/1.73 sq m. IS THE PATIENT REQUIRED TO BE FASTING? No 07/21/2020 12:25 PM CORD MAKER [facility] Blood Venipuncture / Unknown 07/21/2020 10:43 AM CORD MAKER 07/21/2020 11:48 AM CORD MAKER us Raulito Cullen MD CHEMISTRY ORDERABLES Final Resul t [facility] [address] [place] [address] documented in this encounter Visit Diagnoses Diagnosis Pre-op testing- Primary Preoperative examination, unspecified Pre-op testing Preoperative examination, unspecified Pre-op testing Preoperative examination, unspecified documented in this encounter Care Teams Monogram Operator Relationship Specialty Start Date End Date Sejal Singh, ELIAN, FREEZER OPERATOR [address] [place] [address] PCP - General Certified Nurse Practitioner 12/15/19 documented as of this encounter
--- OUTSIDE RECORDS SUMMARY | 2024-10-20 14:08 | XMS_ITS | Clinical Summary ---
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
[2024-10-20 14:23] LABS: Estimated Glomerular Filt Rate > 60
== END 2024-10-20 14:04 | disposition home or self-care (01) ==
PROVIDERS: Visit Provider Nurse Practitioner
DX: K52.9 Noninfective gastroenteritis and colitis, unspecified (principal)
CPT/HCPCS: 74177; Q9967

== ENCOUNTER 2024-10-29 02:32 | Day surgery (SDC) | payer MEDICARE, SELFPAY ==
[2024-10-26 15:13] VITALS: BMI 31.6
--- OUTSIDE RECORDS SUMMARY | 2024-10-29 02:35 | XMS_ITS | CONTINUITY OF CARE DOCUMENT ---
Author Name irma solis Address Unknown Organization [facility] Address [address] [place] [address] Phone [phone] Care Team Providers Care Veterinary Meat Inspector Name Role Phone Shane JAIMES, Melani Unavailable Francisco COOK PRESSURE-BC, Gisell Murphy Unavailable [phone] Francisco COOK PRESSURE-BC, Gisell Jeffrey Unavailable PROBLEMS Condition Status Date [...] In-person encounter Office Visit Melani Lynn MD [facility] Dizziness and lightheadedness - In-person encounter Office Visit Melani Lynn MD [facility] Tobacco abuseTobacco use - In-person encounter Office Visit Melani Lynn MD [facility] PAD - In-person encounter Office Visit Melani Lynn MD [facility] - In-person encounter Office Visit Melani Lynn MD [facility] - In-person encounter Office Visit Melani Lynn MD [facility] - In-person encounter Office Visit Melani Lynn MD [facility] SINUS TACHYCARDIA-07/29 HOLTER SRHTN ESSENTIAL-07/02 NUC NEGHTN essentialSinus tachycardia - In-person encounter Office Visit Melani Lynn MD [facility] - In-person encounter Office Visit Melani Lynn MD [facility] Diabetes mellitus, Type II - A1c 6.3% 01/2018Hyperglycemia - In-person encounter Office Visit Melani Lynn MD [facility] DYSLIPIDEMIA - In-person encounter Office Visit Melani Lynn MD [facility] Diabetes mellitus, Type II - A1c 6.3% 01/2018COPD - mild - In-person encounter Office Visit Melani [facility] MD [facility] SyncopeLyme diseaseDyspnea on exertion - In-person encounter Office Visit Gonzalez Monahan MD [facility] - In-person encounter Office Visit Gonzalez Monahan MD [facility] - In-person encounter Office Visit Gonzalez Monahan MD [facility] CHEST PAIN-12/29 CATH NL - In-person encounter Office Visit Gonzalez Monahan MD [facility] SINUS TACHYCARDIA-07/29 HOLTER SRHyperlipidemiaHTN ESSENTIAL-07/02 NUC NEGTobacco abuseOBESITY VITAL SIGNS Date Observation Value Provider Body Mass Index (Ratio) 35.14 kg/m2 Varun Lynn MD oxygen saturation, oximetry 95 % Glory Juice pulse rate 88 /min Glory [place] respiratory rate E&M 16 /min Catheri ne [place] weight E&M 238 [lb_av] Glory [place] blood pressure, cuff size regular Ca therine Juice height E&M 69 [in_i] Glory [place] Body Mass Index (Ratio) 34.70 kg/m2 David [...] blood pressure, diastolic 80 mm[Hg] Brigida kumari Erin blood pressure, systolic 132 mm[Hg] Raul carty Erin oxygen saturation, oximetry 99 % Christine Bryan respiratory rate E&M 16 /min Kendra mitra Erin pulse rate 104 /min Christine menjivar weight [...] blood pressure, cuff size regular Kr isty Homeland blood pressure, diastolic 80 mm[Hg] Kr isty Homeland blood pressure, systolic 130 mm[Hg] Kri sty Homeland pulse rate 106 /min Gifty Kelly oxygen saturation, oximetry 97 % Gifty Homeland respiratory rate E&M 18 /min Gifty Homeland weight E&M 216 [lb_av] Gifty Kelly height E&M 69 [in_i] Gifty Kelly Body Mass Index (Ratio) 33.13 kg/m2 Sukumar Morante blood pressure, cuff size regular Kr isty Homeland blood pressure, diastolic 80 mm[Hg] Kr isty Kelly blood pressure, systolic 142 mm[Hg] Kri sty Kelly respiratory rate E&M 18 /min Gifty Kelly pulse rate 107 /min Gifty Homeland oxygen saturation, oximetry 97 % Gifty Homeland weight E&M 224.4 [lb_av] Gifty Kelly height E&M 69 [in_i] Gifty Homeland Body Mass Index (Ratio) 33.96 kg/m2 Varun [...] Kelly oxygen saturation, oximetry 98 % Gifty Homeland respiratory rate E&M 17 /min Gifty Homeland pulse rate 101 /min Gifty Kelly blood pressure, cuff size regular Kr isty Homeland weight E&M 231 [lb_av] Gifty Homeland height E&M 69 [in_i] Gifty Homeland Body Mass Index (Ratio) 35.44 kg/m2 Varun [...] kelly pulse rate 105 /min Glenna Quique [facility] weight E&M 238 [lb_av] Glenna Quique er height E&M 69 [in_i] Glenna Quique [facility] Body Mass Index (Ratio) 35.14 kg/m2 Maxwell Kapadia respiratory rate E&M 16 /[facility], [facility] 70 mm[Hg] [facility] pressure, systolic 120 mm[Hg] Milagro cha Ferreira oxygen saturation, oximetry 95 % Betty Ferreira pulse rate 105 /min Oolitic Ferreira weight E&M 238 [lb_av] Betty Ferreira height E&M 69 [in_i] Betty Ferreira Body Mass Index (Ratio) 35.14 kg/m2 [...] stity Johnathan oxygen saturation, oximetry 95 % [facility] Johnathan respiratory rate E&M 16 /min [...] High 4 cholesterol, serum 190 mg/dL [employer] [phone]/12/2 4 platelet count 155 X10E3/UL [employer] [phone]/12/2 4 red blood cell distribution width 12.4 [...] High 4 sodium, serum 140 mmol/L [employer] [phone]/12/2 4 urea nitrogen/creatinine ratio, serum 14 [employer] [...] smoking history, tot al pack/year 26 Glory [place] smoking history, tot al pack/day 1 Glory Juice cigarette use yes Glory [place] smoking status Former smoker Glory Ot is [...] status Current every day smoker Alina johnston Erin seatbelt usage 100 % [facility] caffeine use, averag e drinks per day yes Christine Erin passive cigarette sm liam exposure yes Christine Erin smoking/tobacco cess ation, patient education and counseling yes Christine Erin smoking, date started 1987 Adam bradley Erin smoking history, tot al pack/year 26 Christine Erin smoking history, tot al pack/day 1 Christine Erin cigarette use yes Christine Prasadhenry [facility] seatbelt usage 100 % Melani sanchez [...] smoking status Current every day smoker M lusi Lynn MD social history reviewed E&M revi [...] ation, patient education and counseling yes Gifty Homeland smoking, date started 1987 Gifty Kelly smoking history, tot al pack/year 26 Gifty Kelly smoking history, tot al pack/day 1 Gifty Homeland cigarette use yes Gifty Homeland smoking status Current every day smoker K ryan Homeland social history E&M Marital Statu s: L roxie with family/friends J ob Status: Employed full-time Smoking History: P atient currently smokes every day. P atient has been counseled to quit. Melani Lynn MD social history reviewed E&M revi ewed - no changes required Melani Lynn MD seatbelt usage 100 % Gifty Homeland caffeine use, averag e drinks per day yes Gifty Homeland passive cigarette sm liam exposure yes Gifty Homeland smoking/tobacco cess ation, patient education and counseling yes Gifty Homeland smoking, date started 1987 Gifty Kelly smoking history, tot al pack/year 26 Gifty Homeland smoking history, tot al pack/day 1 Gifty Homeland cigarette use yes Gifty Homeland smoking status Current every day smoker K [...] Gifty Lopesby smoking, date started 1987 Gifty Homeland smoking history, tot al pack/year 26 Gifty Kelly smoking history, tot al pack/day 1 Gifty Lopesby cigarette use yes Gifty Homeland smoking status Current every day smoker Britney [...] % Chastity Hogu e alcohol counseling no [facility] alcohol use, average drinks per day social [facility] Johnathan alcohol use yes [facility] use, averag e drinks per day yes [facility] drug use none [facility] smoking/tobacco cess ation, patient education and counseling yes [facility] passive cigarette sm liam exposure yes [facility], [facility] smoking history, tot al pack/year 26 Chastity Johnathan smoking history, tot al pack/day 1 Chastity Johnathan cigarette use yes [facility] smoking status Current every day [...] Fall Assessment not done medical c ontraindication Betty Ferreira MENTAL STATUS Date Observation Value Provider [...] Payer name Policy type / Coverage type [place] red libertarian ID [employer] G[employer] PLUS O HMO [id number] ADVANCE DIRECTIVES Name Date DISCUSSED - NO DECISION MADE TREATMENT PLAN Date Name Performer [id number],C,D enies of any symptoms at present. The sensilase was mildly abnormal last time it was checked. Melani Lynn MD [id number],N,E pisodes of dizziness on standing. Infrequent episodes and no obvious cause is known. We will check carotid doppler, stress test, and obtain 7 day monitor. Patient was advised to increase water intake. Patient was instructed to record BP regularly while standing up, and record BP when episodes of dizziness happen. Melani Lynn MD [id number],C,In remission. Melani Lynn MD [id number],C,Uses trelegy as needed. Melani Lynn MD [id number],C,On rosuvastat in, zetia. Melani Lynn MD [id number],C,D iet controlled. Continues on lisinopril. Melani Lynn MD [id number],S, P atient reports that he only smokes when he has a beer. Melani Lynn MD [id number],S, F lareups usually occur in summer. Responds to abx and steroids. Melani Lynn MD [id number],S, C ontinues on Crestor and Zetia. Melani Lynn MD [id number],S, N o recurrence. Effort tolerance stable. Melani Lynn MD [id number],S, D iet controlled. Continues on lisinopril for renal protection. Melani Lynn MD [id number],S, B P control is satisfactory. Advised reduced sodium intake and weight reduction. Melani Lynn MD [id number],S, R ecent ABIs were normal. Sensilase showed reduced distal pressures with adequate perfusion for wound healing. His leg pain is likely related to long-term back issues. Melani Lynn MD [id number],S, N o further recurrence. Melani Lynn MD [id number],S, S TRONGLY ENCOURAGED TO STOP SMOKING; SMOKING CESSATION TECHNIQUES DISCUSSED. Melani Lynn MD [id number],S, D enies of any shortness of breath. Continues on Trelegy. Melani Lynn MD [id number],C, C ontinues on Crestor and Zetia. Melani Lynn MD [id number],C, D iet controlled. Continues on lisinopril for renal protection. Melani Lynn MD [id number],C,H is symptoms are not consistent with PAD. The dorsalis pedis and PT are palpable on both feet. Will repeat ABIs and Sensilase. Melani Lynn MD [id number],C,P ersistent sinus tachycardia. Will increase the dose of BB, if he remains tachycardic will consider Corlanor. Melani Lynn MD [id number],C,R ecent exacerbation with rash and joint pain. He reports feeling much better after treatment with abx and steroids. Melani Lynn MD [id number],C,D iet controlled. Continues on lisinopril for renal protection. Melani Lynn MD [id number],C,Continues on Crestor and Zetia. Melani Lynn MD [id number],C,B P control is satisfactory. Advised reduced sodium intake and weight reduction. Melani Lynn MD [id number],C,N o recurrence. Effort tolerance stable. Melani Lynn MD [id number],C,1 02 bpm on EKG today. He continues [...] flutter, fibrillations, or any bradyarrhythmias seen. - [facility] (08/18/2011) N uclear Stress Findings: 1. Normal Raulito protocol exercise tolerance test. 2 . Normal left ventricular size and function with a calculated ejection fraction of 57%. 3 . Myocardial scintigraphy is normal without evidence for previous myocardial infarction or reversible ischemia. - (07/15/2012) C ardiac Cath: Normal coronary arteries. Normal left ventricular systolic function. 6-Botswanan Angio-Seal placement. - [facility] (12/24/2011) Gonzalez Monahan MD routine: H [...] coronary arteries. Normal left ventricular systolic function. 6-[place]wan[place] Angio-Seal placement. - [facility] (12/24/2011) C arotid Doppler/Duplex: Normal bilateral both carotid and vertebral systems. - [facility] (12/24/2011) Gonzalez Monahan MD routine: B P today: 100/54 Prior BP: 151/98 (07/08/2012) H olter Monitor: Holter monitor shows the patient has sinus rhythm, most of the time. sinus tachycardia. occasional PVC and 1 episode of ventricular couplets. No sustained ventricular tachycardia, PAT, atrial flutter, fibrillations, or any bradyarrhythmias seen. - [facility] (08/18/2011) N uclear Stress Findings: 1. Normal Raulito protocol exercise tolerance test. 2 . Normal left ventricular size and function with a calculated ejection fraction of 57%. 3 . Myocardial scintigraphy is normal without evidence for previous myocardial infarction or reversible ischemia. - (07/15/2012) C ardiac Cath: Normal coronary arteries. Normal left ventricular systolic function. 6-[place]wanan Angio-Seal placement. - [facility] (12/24/2011) His updated medication list for [...] coronary arteries. Normal left ventricular systolic function. 6-[place]wanan Angio-Seal placement. - [facility] (12/24/2011) C arotid Doppler/Duplex: Normal bilateral both carotid and vertebral systems. - [facility] (12/24/2011) His updated medication list for [...] ..... One tab daily Orders: Mitra KG ([id number]) Gonzalez Monahan MD follow up: H is updated medication list for this problem includes: Carvedilol 6.25 Mg Tabs (Carvedilol) ..... 1 tab twice daily Aspirin 81 Mg Tabs (Aspirin) ..... One tab. daily Lisinopril 20 Mg Tabs (Lisinopril) ..... One tab daily Orders: Victoria jones Test - Nuclear ([id number]) Gonzalez Monahan MD new patient: H is [...] coronary arteries. Normal left ventricular systolic function. 6-[place] Angio-Seal placement. - [facility] (12/24/2011) Orders: E KG ([id number]) H olter Monitor 24 Hr ([id number]) Gonzalez Monahan MD Date Name Carotid Duplex [...] Exercise Card iolite Complete Echo DLCO - 98436 FRC - 52047 FVC - 57148 Carotid Duplex Bilat eral Complete Echo Mobile [...] ed FVC / MVV with bronchodilator - 71030 Melani Lynn MD completed FRC - 25049 Melani Lynn MD comple adolfo SpO2 - 99977 Melani Lynn MD compl eted DLCO - 11437 Melani Lynn MD compl eted Mobile Cardiac Telem etry - Tech Melani Lynn MD completed Mobile Cardiac Telem etry - Prof Melani Lynn MD completed EKG Melani Lynn MD complet ed DEBORAH Monahan MD complete d DEBORAH Monahan MD complete d DEBORAH Monahan MD complete d
--- OUTSIDE RECORDS SUMMARY | 2024-10-29 02:35 | XMS_ITS | Encounter Summary ---
Author Organization [facility] Address [address] [facility] [place] [address] Phone Care Team Providers Care Undergraduate Intern Name Role Phone Sejal Singh APRN, CNP Primary Care Pro vider Reason for Referral * Radiology Services (Routine) - Closed Specialty Diagnoses / Procedures Referred By Nick silva Referred To Contact Radiology Diagnoses Pre-op testing Procedures EKG 12 LEAD Raulito Cullen MD Phone: tel: fax: Referral ID Status Reason Start Date Expiration Date Visits Re quested Visits Authorized [id number] Closed 07/20/2020 1 1 UM METHYLATE OPERATOR * Radiology Services (Routine) - Closed Specialty Diagnoses / Procedures Referred By Nick silva Referred To Contact Radiology Diagnoses Pre-op testing Procedures XR CHEST 2 VIEWS Raulito Cullen MD Phone: tel: fax: Referral ID Status Reason Start Date Expiration Date Visits Re quested Visits Authorized [id number] Closed 07/20/2020 1 1 UM METHYLATE OPERATOR Encounter Details Date Type Department Care Team (Latest Contact Info) Description 07/20/2020 Transcribe Orders [facility] Preop/Pacu II [address] [place] [id number] Raulito Cullen MD [address] [place] [address] Pre-op testing (Primary Dx) Social History Tobacco [...] COVID-19? No / Unsure 07/20/2020 2:59 PM SODIUM METHYLATE OPERATOR documented as of this encounter Plan of Treatment Not on file documented as of this encounter Results * SARS-COV-2 BY MOLECULAR (07/24/2020 9:02 AM SODIUM METHYLATE OPERATOR) SARSCOV2 NOT DETECTED (Referen ce Range for this test is Not Detected ) [facility] THERMOFISHER FAST DX 07/25/2020 10:35 AM SODIUM METHYLATE OPERATOR [facility] Comment:This test was perfor med by a RT-PCR method. Other NASOPHARYNGEAL STRUCTURE / Unknown Non-Phlebotomy Collection / Unknown 07/24/2020 9:02 AM SODIUM METHYLATE OPERATOR 07/24/2020 10:04 AM SODIUM METHYLATE OPERATOR Narrative [facility] - 07/25/2020 10:35 AM SODIUM METHYLATE OPERATOR Authorized Fact Sheets about this test for providers and patients are available at: https://www.fda.gov/medical-devices/fjyenjowx-jxnwmqjlbb-hfbjrmf-devices/emergen cy-us e-authorizations us Raulito Cullen MD MICROBIOLOGY - GENERAL ORDERABLE S Final Result [facility] [address] [place] [address], [place] * XR CHEST 2 VIEWS (07/21/2020 11:23 AM SODIUM METHYLATE OPERATOR) Anatomical Region Laterality Modality Chest N/A Digital Radiogra phy 07/21/2020 6:31 PM SODIUM METHYLATE OPERATOR Impressions 07/21/2020 6:34 PM SODIUM METHYLATE OPERATOR IMPRESSION: No radiographic evidence of an acute cardiopulmonary abnormality. Narrative 07/21/2020 6:34 PM SODIUM METHYLATE OPERATOR EXAM DESCRIPTION: XR CHEST 2 VIEWS REASON [...] signed by Renaldo Lugo : Report ID: [id number] Reading Location: [id number] Procedure Note Renaldo Lugo MD - 07/21/2020 [...] signed by Renaldo Lugo : Report ID: [id number] Reading Location: [id number] IMPRESSION: No radiographic evidence of an acute cardiopulmonary abnormality. us Raulito Cullen MD IMG DIAGNOSTIC ORDERABLES Final Result * EKG 12 LEAD (07/21/2020 10:50 AM SODIUM METHYLATE OPERATOR) Ventricular Rate BPM EXTERNAL EKG Atrial Rate BPM EXTERNAL EKG P-R Interval 138 ms EXTERNAL EKG QRS Duration 88 ms EXTERNAL EKG Q-T Duration 338 ms EXTERNAL EKG QTC CALCULATION 436 ms EXTERNAL EKG P Cowdrey 58 degrees EXTERNAL EKG R [place] 82 degrees EXTERNAL EKG T [place] 40 degrees EXTERNAL EKG 07/21/2020 10:5 0 AM SODIUM METHYLATE OPERATOR Impressions EXTERNAL EKG - 07/22/2020 10:28 AM SODIUM METHYLATE OPERATOR Sinus tachycardia Comparison Summary: No significant change [...] CMP (COMPREHENSIVE METABOLIC PANEL) (07/21/2020 10:43 AM SODIUM METHYLATE OPERATOR) SODIUM 137 136 - 144 mmol/L 07/21/2020 12:25 PM SODIUM METHYLATE OPERATOR [facility] POTASSIUM 4.4 3.5 - 5.1 mmol/L 07/21/2020 12:25 PM SODIUM METHYLATE OPERATOR [facility] CHLORIDE 99(L) 100 - 110 mmol/L 07/21/2020 12:25 PM SODIUM METHYLATE OPERATOR [facility] CO2, VENOUS 26 22 - 32 mmol/L 07/21/2020 12:25 PM [facility] ANION GAP 16.4 8.0 - 20.0 mmol/L 07/21/2020 12:25 PM [facility] GLUCOSE 100(H) 70 - 99 mg/dL 07/21/2020 12:25 PM [facility] BUN 11 6 - 20 mg/dL 07/21/2020 12:25 PM [facility] CREATININE, BLOOD 0.67(L) 0.80 - 1.30 mg/dL 07/21/2020 12:25 PM [facility] BUN/CREATININE RATIO 16 12 - 20 ratio 07/21/2020 12:25 PM [facility] TOTAL PROTEIN 7.2 6.0 - 8.3 g/dL 07/21/2020 12:25 PM [facility] ALBUMIN 4.4 3.5 - 5.2 g/dL 07/21/2020 12:25 PM [facility] Comment: The colormetric methods used for the determination of Albumin may lead to falsely elevated test results in patients suffering from renal failure or insufficiency due to interference with other proteins. A/G RATIO 1.6 1.0 - 2.0 07/21/2020 12:25 PM [facility] CALCIUM 9.1 8.9 - 10.3 mg/dL 07/21/2020 12:25 PM [facility] T BILI 0.5 <=1.2 mg/dL 07/21/2020 12:25 PM [facility] SGOT (AST) 39 <=40 U/L 07/21/2020 12:25 PM [facility] SGPT (ALT) 37 <=41 U/L 07/21/2020 12:25 PM [facility] ALKALINE PHOSPHATASE 66 40 - 130 U/L 07/21/2020 12:25 PM [facility] GFR, EST. NONAFRICAN >60 >=60 07/21/2020 12:25 PM SODIUM METHYLATE OPERATOR [facility] GFR, EST. >60 >=60 021 12:25 PM SODIUM METHYLATE OPERATOR [facility] Comment: Creatinine Clearance is the preferred criteria for selecting drug dose adjustments in renally impaired patients. The GFR is provided as additional pertinent clinical information. GFR is reported in mL/min/1.73 sq m. IS THE PATIENT REQUIRED TO BE FASTING? No 07/21/2020 12:25 PM SODIUM METHYLATE OPERATOR [facility] Blood Venipuncture / Unknown 07/21/2020 10:43 AM SODIUM METHYLATE OPERATOR 07/21/2020 11:48 AM SODIUM METHYLATE OPERATOR us Raulito Cullen MD CHEMISTRY ORDERABLES Final Resul t [facility] [address] [place] [address] documented in this encounter Visit Diagnoses Diagnosis Pre-op testing- Primary Preoperative examination, unspecified Pre-op testing Preoperative examination, unspecified Pre-op testing Preoperative examination, unspecified documented in this encounter Care Teams Undergraduate Intern Relationship Specialty Start Date End Date Sejal Singh, ELIAN, GUSSET MAKER [address] [place] [address] PCP - General Certified Nurse Practitioner 12/15/19 documented as of this encounter
--- OUTSIDE RECORDS SUMMARY | 2024-10-29 02:35 | XMS_ITS | Encounter Summary ---
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
--- OUTSIDE RECORDS SUMMARY | 2024-10-29 02:35 | XMS_ITS | Continuity of Care Document ---
Author Organization [facility] Address [address] [place] [address] Phone Care Team Providers Care Finance Specialist Name Role Phone Gucci Tinajero Unavailable Unavailable Procedures Procedure Date Eye Exam, New Patient Advance Directives Directive Yes / No Effective Date File Name No Information Encounters Encounter Description Practice Location Reason(s) For Visit Diagnoses Date Provider Providers Copied on Encounter [facility], [address], [place], [place], [id number], [place] tel:[phone] [facility] No Information 2-201 0 Tanvi Gucci. [address], [place], [address], [place]. tel:[phone] Family History Family Member Type Diagnosis Age At Onset No Information Payers Payer name Insurance type Covered libertarian ID Authorcharitya ticarole(s) [employer] Plan CI [id number] Social History Type Description Quantity Date Captured [...]
--- OUTSIDE RECORDS SUMMARY | 2024-10-29 02:35 | XMS_ITS | Referral Summary ---
Author Organization [facility] Address [address] [place] [address] Care Team Providers Care Surveillance Manager Name Role Phone Haim Colunga MD Primary Care Provider [phone] Encounters Date Type Department Care Team Description 10/17/2024 2:45 PM CDT Office Visit [facility] at [address] [address] Nadir Hargrove NP Dermatitis (Primary [...] total) by mouth daily 10/23/19 19 Active rbrch-9-bot-e pa-fish oil (Fish OiL) 300-1,000 mg capsule,delay [...] SUBCUTANEOUS ROUTE DIRECTED FOR 28 DAYS. Active cyclobenzapri ne (FLEXERIL) 5 mg tabletIndicat ions:Itching Take 1 tablet (5 mg total) by mouth nightly as needed for muscle spasms for up to 7 days 7 tablet 10/18/19 25 Active lisinopriL (PRINIVIL,ZES TRIL) 5 mg tablet Take 0.5 tablets (2.5 mg total) by mouth daily 07/30/19 19 025 Discontinued cyclobenzapri ne (FLEXERIL) 10 mg tablet TAKE 1 TABLET BY MOUTH TWICE A DAY NEEDED FOR MUSCLE SPASMS 07/30/19 24 025 Discontinued(T herapy completed) cephalexin (KEFLEX) 500 mg capsuleIndica tions:Skin infection, bacterial Take 1 capsule (500 mg total) by mouth 4 (four) times a day for 7 days 28 capsule 10/18/19 25 025 mupirocin (BACTROBAN) 2 % ointmentIndic ations:Skin infection, bacterial Apply topically 3 (three) times a day for 10 days 22 g 10/18/19 25 025 Active Problems Problem Noted Date Diagnosed Date [...] on file 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 Gender Identity Not on file Sexual Orientation [...] LAB BLOOD ORDERABLES Fi nal Result [facility] [place] Department of Laboratories [place] [id number] * POCT lipid panel (02/27/2023 3:16 PM [...] RESULTS Serum 11/24/2013 12:1 6 PM CDT Kurt Spence MD LAB BLOOD ORDERABLES Final R esult HISTORICAL RESULTS from Last 3 Months or Most Recently Relevant to Health Maintenance Insurance [facility] MEDICARE ADVANTAGE [facility] Address: [address] [address] [place] [address] Advance Directives For more information, please contact: [phone] * Full Code (Latest Code Status on File) Date Activated Date Inactivated Comments 06/21/2023 9:20 AM 06/22/2023 4:53 AM Care Teams Surveillance Manager Relationship Specialty Start Date End Date Haim Colunga MD [address] [address] PCP - General Family Medicine 08/13/23
--- OUTSIDE RECORDS SUMMARY | 2024-10-29 02:35 | XMS_ITS | Encounter Summary ---
Author Organization [facility] Address 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
--- OUTSIDE RECORDS SUMMARY | 2024-10-29 02:35 | XMS_ITS | Clinical Summary ---
Author Organization [facility] Address [address] [place] [address] Care Team Providers Care Gas Tester Name Role Phone Stanley Herzog MD Primary Care Provider [phone] Source Comments [facility],non-owned Affiliates and Associated Physician Practices is amultiple site organization consisting of ambulatory clinics and hospital sitesin [place], [place], [place] and [place]. This disclosure is being madepursuant to the Care Everywhere program and may not contain all information available regarding this patient. 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
--- OUTSIDE RECORDS SUMMARY | 2024-10-29 02:35 | XMS_ITS | Clinical Summary ---
Author Organization [facility] Care Team Providers Care Telephone Directory Deliverer Name Role Phone Sejal Singh APRN, CNP [...] - 08/20/2024 10:10 AM CDT Surgery [facility] [address]iop [address] [place] [address] Raulito Sierra MD LUMBAR EPIDURAL STEROID INJECTION 08/20/2024 8:29 AM CDT [facility] [address] [place] [address] Tony Saez MD 08/20/2024 6:58 AM CDT - 08/20/2024 10:00 AM CDT [facility] Pre[facility]Pac[facility] [address] [place] [address] Raulito Sierra MD Discharge Disposition: Discharged to [...] Comments Hepatitis C Virus (HCV) Screening 1961 Cologuard 2006 Colonoscopy 2006 Colorectal Cancer Screening 2006 Immunochemical Fecal Occult Blood 2006 Zoster Immunization (1 of 2) 2011 PSA [...] this topic Medical Devices Implanted Type Area Gum Machine Filler Device Identifier Shelf Expiration Date Model / Serial / Lot Dynasty Acetabular System Comp Biofoam S - [id number] Implanted:Qty: 1 on 04/20/2015 by [facility] IMPLANT Right: Hip [employer] [facility]-GE54 / / [id number] Scr Canc St Advtm 6.5x30mm - [id number] Implanted:Qty: 1 on 04/20/2015 by Raulito Sierra MD at [facility] IMPLANT Right: Hip [employer] 09/18/2022 [id number] / / [id number] Profemur Renaissance Stem Standard Sz 15 - [id number] Implanted:Qty: 1 on 04/20/2015 by Raulito Sierra MD at [facility] IMPLANT Right: Hip [employer] 05/21/2021 [id number] / [id number] / [id number] Dynasty Aclass Poly Liner 15 Deg Liner 3 - [id number] Implanted:Qty: 1 on 04/20/2015 by Raulito Sierra MD at [facility] IMPLANT Right: Hip [employer] 11/18/2022 [id number] / / [id number] Conserve Head/Neck Sleeves For Bch/Bfh 0 - [id number] Implanted:Qty: 1 on 04/20/2015 by Raulito Sierra MD at [facility] IMPLANT Right: Hip [employer] 09/18/2022 [id number] / / [id number] [facility] Canc St Advtm 6.5x25mm - [id number] Implanted:Qty: 1 on 04/20/2015 by Raulito Sierra MD at [facility] IMPLANT Right: Hip [employer] 07/19/2021 [id number] / / [id number] Conserve Big Ceramic Femoral Head 38mm - [id number] Implanted:Qty: 1 on 04/20/2015 by Raulito Sierra MD at [facility] IMPLANT Right: Hip [employer] 09/18/2020 [id number] / / [id number] Profemur Plus Cocr Neck A/R 8 Short - [id number] Implanted:Qty: 1 on 04/20/2015 by Raulito Sierra MD at [facility] IMPLANT Right: Hip [employer] 01/19/2023 [id number] / / [id number] System Fix 19.1mm 4.75mm Speedbridge Swivelock Biocomposite David Preload Strl - [id number] Implanted:Qty: 1 on 07/27/2020 by Raulito Sierra MD at [facility] IMPLANT Left: Shoulder [employer] 05/19/2023 AR-[id number] S-4 / [id number] S-4 / [id number] Procedures Procedure Name Priority Date/Time Associated Diagnosis Comments XR SURGICAL EXAM Routine 08/20/2024 8:56 AM CDT TN NJX AA&/STRD TFRML EPI LUMBAR/SACRAL EA ADDL 08/20/2024 8:09 AM CDT LUMBAR STENOSIS Special Needs 5'10 225LBS HTN, ACID REFLUX TN NJX AA&/STRD TFRML EPI LUMBAR/SACRAL 1 LEVEL 08/20/2024 8:09 AM CDT LUMBAR STENOSIS Special Needs 5'10 225LBS HTN, ACID REFLUX TN NJX AA&/STRD TFRML EPI CERVICAL/THORACIC EA ADDL 08/20/2024 8:09 AM CDT LUMBAR STENOSIS Special Needs 5'10 225LBS HTN, ACID REFLUX TN NJX AA&/STRD TFRML EPI CERVICAL/THORACIC 1 LEVEL [...] from Last 3 Months Insurance MEDICARE C [facility] Advance Directives * Full Code (Latest Code Status on File) Date Activated Date Inactivated Comments 04/26/2015 7:39 AM 07/27/2020 5:29 AM * Full Code Date Activated Date Inactivated Comments 04/21/2015 7:16 AM 04/23/2015 3:44 PM Full Code: FULL ARREST: Attempt Resuscitation/CPR and use intubation and mechanical ventilation as indicated. PRE-ARREST: Use all measures to stabilize patient. Care Teams Telephone Directory Deliverer Relationship Specialty Start Date End Date Sejal Singh, DENTAL PRACTICE MANAGER, COAL CRUSHER OPERATOR [address] [place] [address] PCP - General Certified Nurse Practitioner 12/15/19
--- OUTSIDE RECORDS SUMMARY | 2024-10-29 02:35 | XMS_ITS | Data Portability ---
Author Organization [facility], Main Office Address [address] [place] [address] Assessment No assessment recorded. Plan of Treatment Reminders Order Date Submit Date Provider Last Modified By Organization Details Last Modified Time Details Appointments Follow Up 15 2024 09:00A HELDER Cantrell Not available Not available Not available Lab HbA1c (hemoglob in A1c), blood [address] Outpatient Lab, [address] [place], [address], 09/10/2024 08:09:18 CBC w/ auto diff 2024 025 [facility], [address] [place], [address], 09/04/2024 03:39:21 CMP, serum or plasma [address] Outpatient Lab, [address] [place], [address], 09/10/2024 08:09:18 lipid panel, blood [address] Outpatient Lab, [address] [place], [address], 09/10/2024 08:09:18 TSH, serum, reflex free T4 2023 024 [facility], [address] [place], [address], 04/02/2024 23:16:04 CMP, serum or plasma 2023 024 [facility], [address] [place], [address], 04/02/2024 23:16:05 CBC w/ auto diff 2023 024 [facility], [address] [place], [address], 04/02/2024 23:16:05 lipid panel, serum 2023 024 [facility], [address] [place], [address], 04/02/2024 23:16:04 PSA, total + free, serum or plasma 2023 024 [facility], [address] [place], [address], 04/02/2024 23:16:05 HbA1c (hemoglob in A1c), blood 2023 024 [facility], [address] [place], [address], 04/09/2024 08:06:[address] referral 2024 025 Helen Alvarado MD, [address] [facility], [address], [place], [address], 09/17/2024 15:08:25 rheumatol ogist referral - A lot of arthritis , multiple joint pain, MARLON leg tingling, loss of conscious ness. Please call patient to schedule an appointme nt. Thank you. 2023 024 [email or web address] Atilio Augustin DO, [address] [facility], [address], [place], [address], 02/03/2024 08:42:58 hand surgeon referral - Was told surgery is required by ortho, would like to see hand specialis tMary Has copy of MRI. Please call patient to schedule an appointme nt. Thank you. 2023 024 [email or web address] Mehrdad Duffy MD, [address], [address], [place], [address], 01/31/2024 08:49:40 Procedures None recorded. Surgeries None recorded. Imaging MRI, lumbar spine, w/wo contrast - *Please call pt to schedule* 2023 024 [facility], [address], [address], [place], [address], 01/17/2024 11:18:52 Medication Orders Solu-Medr ol (PF) 125 mg/2 mL solution for injection 2024 025 Not available 09/29/2024 13:10:23 hydroxyzi ne HCl 50 mg tablet 2024 025 [facility]/Pharmacy #[id number], [address] , [place], [address], 09/29/2024 12:02:03 Medrol (Remi) 4 mg tablets in a dose pack [address] [id number] [address] , [place], [address], 09/29/2024 12:02:28 losartan 50 mg-hydroc hlorothia zide 12.5 mg tablet 2024 025 [facility]/Pharmacy #[id number], [address], [place], [address], 09/03/2024 10:31:53 celecoxib 200 mg capsule 2024 025 [facility]/Pharmacy #[id number], [address], [place], [address], 06/04/2024 13:07:58 metoprolo l succinate ER 50 mg tablet,ex tended release 24 hr 2024 025 [id number], [address], [place], [address], 09/03/2024 10:10:03 lansopraz ole 30 mg capsule,d elayed release [address] [id number] [address] [place], [address], 04/02/2024 11:18:59 Bactrim DS 800 mg-160 mg tablet 2023 024 [id number], [address] [place], [address], 06/04/2024 12:14:40 lansopraz ole 30 mg capsule,d elayed release [address] [id number], [address] [place], [address], 01/02/2024 11:47:15 duloxetin e 60 mg capsule,d elayed release [address] [id number], [address], [place], [address], 01/02/2024 11:47:15 rosuvasta tin 40 mg tablet [address] [id number] [address] [place], [address], 01/02/2024 11:47:16 pregabali n 100 mg capsule 2023 024 [id number], [address] [place], [address], 06/04/2024 12:14:29 Patient TargetsNo targets recorded. Patient Instructions Encounter Date Encounter Id Patient Instructions Last Modified By Organization Details Last Modified Time 04/02/2024 [id number] advance care planning: care instructions brandi Not available 04/02/2024 11:45:49 advance directives: care instructions brandi Not available 04/02/2024 11:45:49 [place] Advance Directives brandi Not available 04/02/2024 11:45:49 risk assessment* LILLIAM Not available 04/02/2024 11:50:39 INFLUENZA VACCIN E TD/TDAP PNEUMONIA VACCINE SHINGLES PSA COLORECTAL SCREENING DEPRESSION SCREENING BMI NUTRITION PHYSICAL ACTIVITY ALCOHOL USE TOBACCO USE LUNG CANCER SCREENING SEXUALLY ACTIVE HEPATITIS C SCREENING GLUCOSE SCREENING LIPID SCREENING brandi Not available 04/02/2024 11:45:24 Reason for Referral Band Splitter Referral for Osteoarthritis A lot of arthritis, multiple joint pain, MARLON leg tingling, loss of consciousness. Please call patient to schedule an appointment. Thank you. Referring Physician: Pamella Castano [facility], Encounter Date: 01/02/2024 Hand Surgeon Referral for Ru pture of extensor tendon of thumb Was told surgery is required by ortho, would like to see hand specialist. Has copy of MRI. Please call patient to schedule an appointment. Thank you. Referring Physician: [facility], Encounter Date: 01/02/2024 Neurologist Referral for Imp airment of balance Referring Physician: Pamella Castano [facility], Encounter Date: 09/03/2024 Results Created Date Observation Date Name Description Value Unit Range Abnormal Flag Note LastModifiedBy Organization Detail LastModifiedTime 01/17/20 24 01/17/2024 MRI, lumba r spine , w/wo contr ast No observ ation [facility] [address], [place], [address], 01/17/2024 12:52:38 01/17/20 24 01/17/2024 MRI, lumba r spine , w/wo contr ast No observ ation record ed. [facility] [address], [place], [address], 01/17/2024 12:52:38 09/12/19 25 09/11/2024 CT, abdom en + pelvi s, w/ contr ast No observ ation record ed. [address], [place], [address], 09/11/2024 14:55:53 10/21/19 25 10/20/2024 CT, abdom en + pelvi s, w/ contr ast No observ ation record ed. [place] [id number] [facility] [address], [place], [address], 10/21/2024 12:07:00 Result Notes None recorded. Problems Name Problem SNOMED Code Status Onset Date Resolution Date Notes Provider Name and Address Organization Details Recorded Time Obstruct yesi sleep apnea of adult 64151993830 03 Active 2021 SEVERE 04/2022 Not Available [facility] 3 12:19:23 Tobacco user 104653527 Active 2017 Not Available [facility] 3 12:19:23 Testoste indy level below referenc e range 170893613 Active Not Available [facility] 3 12:19:23 Chronic obstruct yesi pulmonar y disease 68478217 Active Not Available [facility] 3 12:19:23 Nocturia 633899353 Active Not Available [facility] 3 12:19:23 Hyperkal emia 60325085 Active Not Available [facility] 3 12:19:23 Gem spotted fever 512326146 Active Not Available [facility] 3 12:19:23 Toxic effect of tobacco and nicotine 284551983 Active Not Available [facility] 3 12:19:23 Gastroes ophageal reflux disease 232911550 Active Not Available [facility] 3 12:19:23 Syncope 130562906 Active 2017 Not Available [facility] 3 12:19:23 Eruption 138632858 Active Not Available [facility] 3 12:19:23 Ganglion of hand 434775523 Active Not Available [facility] 3 12:19:24 Acute otitis externa 97058360 Completed Not Available [facility] 3 13:36:27 Hyperten sive disorder 03722505 Active Not Available [facility] 3 12:19:24 Divertic ular disease 746611822 Active 2018 Not Available [facility] 3 12:19:24 Dizzines s 595337323 Active 2021 Not Available [facility] 3 12:19:24 Hematoch ezia 357662943 Active Not Available [facility] 3 12:19:24 Obesity 869320788 Active Not Available [facility] 3 12:19:24 Chronic headache disorder 513469522 Active Not Available [facility] 3 12:19:24 Hypogona dism 04370026 Active Not Available [facility] 3 12:19:24 Cervical radiculo mohit 78054746 Active Not Available [facility] 3 12:19:24 Hyperlip idemia 16139799 Active Not Available [facility] 3 12:19:24 Essentia l hyperten carlie 76153353 Active Not Available [facility] 3 12:19:24 Tinea pedis 0633289 Active 2016 Not Available [facility] 3 12:19:24 Chronic bronchit is 63535279 Active 2016 Not Available [facility] 3 12:19:24 Otitis media 44229961 Active 2016 Not Available [facility] 3 12:19:24 Smoker 31869050 Active Not Available [facility] 3 12:19:24 Tinea corporis 91253546 Active 2016 Not Available [facility] 3 12:19:24 Primary fibromya lgia syndrome 48684277 Active Not Available [facility] 3 12:19:24 Sensorin eural hearing loss in left ear 65837720246 109 Active 2022 Not Available [facility] 3 12:19:23 Osteoart hritis 920919208 Active 2022 Not Available [facility] 3 12:19:24 Vertigo 871533381 Active 2022 Not Available [facility] 3 12:19:24 Hypertri glycerid emia 752555846 Active 2022 Not Available [facility] 3 12:19:24 Type 2 diabetes mellitus without complica tion 384998198 Active 2022 Not Available [facility] 3 12:19:24 Thoracic back pain 755290280 Active 2022 Haim Colunga MD [address], [address], [place], [address] , [employer] [facility] 3 16:01:44 Low back pain 145408466 Active 2022 Haim Colunga MD [address], [address], [place], [address] , [employer] [facility] [facility] [facility] 3 16:02:04 Polyarth ropathy 04560809 Active 2022 Haim Colunga MD [address], [place], [address] , [employer] [facility] [facility] 3 16:16:02 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 51132653 Active 2022 Haim Colunga MD [address], [place], [address] , [employer] [facility] 3 11:31:44 Otalgia of left ear 0734648718 Active 2022 Sejal Singh NP [address], [address], [place], [address] , [employer] [facility] [facility] 3 08:06:05 Hypergly cemia 96083524 Active 2022 Sejal Singh NP [address], [address], [place], [address] , [employer] [facility] [facility] 3 08:06:21 Recurren t falls 990540462 Active 2023 Haim Colunga MD [address], [address], [place], [address] , [employer] [facility] 4 10:44:55 Peripher al arterial occlusiv e disease 389338739 Active 2023 HELDER Segovia [address], [place], [address] , [facility] [facility] 4 14:25:29 Hypercho lesterol emia 14221818 Active 2023 HELDER Segovia [address], [address], [place], [address] , [facility] [facility] 4 14:53:38 Neuropat hy 185804357 Active 2023 HELDER Segovia [address], [place], [address] , [facility] 4 11:34:22 Weakness of bilatera l lower limb Active 2023 HELDER Segovia [address], [place], [address] , [facility] [facility] 4 11:37:39 Rupture of extensor tendon of thumb 485937298 Active 2023 HELDER Segovia [address], [place], [address] , [facility] 4 11:39:29 Ossifica tion of ligament um flavum 1539733778 Active 2023 HELDER Segovia [address], [place], [address] , [employer] [facility] 4 12:53:59 Disorder of ligament of vertebra l joint 03090726989 9103 Active 2023 HELDER Segovia [address], [place], [address] , [facility] 4 12:54:28 Dehiscen ce of external surgical incision wound 79738632162 9108 Active 2023 HELDER Segovia [address], [place], [address] , [facility] 4 11:16:44 Inapprop riate sinus tachycar bette 636538638 Active 2024 HELDER Segovia [address], [place], [address] , [facility] 5 13:06:18 Dysfunct ion of bilatera l eustachi an tubes 96910189061 94088 Active 2024 HELDER Segovia [address], [place], [address] , [facility] 5 13:53:05 Impairme nt of balance 518596336 Active 2024 HELDER Segovia [address], [place], [address] , [facility] 5 13:54:00 Scaly skin 539622990 Active [address], [place], [address] , [facility] 5 10:27:25 Well controll ed type 2 diabetes mellitus 879956589 Active [address], [place], [address] , [facility] 5 10:28:55 Colitis 73516590 Active 2024 HELDER Segovia [address], [place], [address] , [facility] 5 15:13:08 Pruritic rash 94922474 Active 2024 HELDER Segovia [address] [facility], [address], [place], [address] , [facility] 11:59:12 Notes:Sejal Singh NP [facility] home sleep study 05/07/22 AHI = 47 [facility] titration sleep study 07/31/22 Respironics small/medium Tasneem nasal mask @ 10 cmH2O Medical History: Syncope Depression COVID infection 07/2020 <50% bilateral ICA stenosis Nicotine dependence Obesity with very severe OSAHS, AHI = 47, 05/07/22, on CPAP c/o [facility] Home Patient T2DM Mixed hyperlipidemia Hypertension EF 56% CAD s/p AWMI JACOB Diverticulosis Hypogonadism ED PLMD Cervical radiculopathy OA Fibromyalgia Tinea corporis/pedis Some problems listed in Document: #[id number] could not be added to this patient's chart. Please review this document and add these problems to the patient's chart manually as needed. Problem Notes None recorded. Procedures Surgical History Date Name Laterality Status Provider Name and Address Organization Details Recorded Time 03/25/20 24 repair of tendon of hand completed Sejal Stringer RN [facility] 04/02/2024 11:03:27 02/23/20 23 Transitional_Ca re_Management completed Sejal Singh NP [address] [facility], [address], [place], [address], [facility] 02/21/2023 17:01:16 04/28/20 21 colonoscopy completed Not Available [facility] 07/19/19 23 13:35:46 07/28/19 21 Rotator cuff surgery completed Not Available On license of [facility] 07/18/2022 13:35:46 05/20/18 88 Back Surgery completed Not Available [facility] 023 13:35:46 total replacement of hip completed Not Available [facility] 07/18/2022 13:35:46 Hernia Repair completed Not Available [facility] 07/18/2022 13:35:46 Imaging Results None recorded. Procedure Notes None recorded. Medical Equipment None Reported. Allergies Allergen ID Allergen Name Allergen Category Reaction Reaction Severity Criticality Documentation Date Start Date Code Code System Note Provider Name and Address Organization Details Recorded Time 64848 Product containin g penicilli n (product) medicatio n hives Not available Not available 07/18/2022 62667 8001 SNOMED Not Available [facility] 3 13:38:28 Medications Name Sig Start Date Stop [...] administ ered by the provider 09/13 completed [facility]: [id number] 09-06 Not Available Not Available Not Available meclizine [...] completed Not Available Not Available Not Available [place] 10 mg-325 mg tablet Take 1 tablet [...] Not Available Not Available No t Available [place] 3 Fish Oil capsule Take 1 capsule [...] administ ered by the provider 09/13 completed [facility]: [phone] Not Available Not Available Not Available fenofibra [...] Updated DateTime 5 175.26 cm 33.4 kg/m2 323797. 58 g 97.2 [degF] 118 /min 24 /min 94 % 94 % 160 mm[Hg] 96 mm[Hg] Sejal Stringer RN [facility] [email or web address] [facility] 5 12:17:01 Date Recorded Body height Body mass index (BMI) Body weight Body temperature Heart rate Respiratory rate Oxygen saturation Oxygen saturation in Arterial blood by Pulse oximetry Systolic blood pressure Diastolic blood pressure Provider Name and Address Organization Details Last Updated DateTime 5 175.26 cm 32.7 kg/m2 679794. 96 g 97.2 [degF] 96 /min 24 /min 97 % 97 % 148 mm[Hg] 90 mm[Hg] Sejal Stringer RN [facility] [email or web address] [facility] 5 10:12:22 Date Recorded Body height Body mass index (BMI) Body weight Body temperature Heart rate Respiratory rate Oxygen saturation Oxygen saturation in Arterial blood by Pulse oximetry Systolic blood pressure Diastolic blood pressure Provider Name and Address Organization Details Last Updated DateTime 5 175.26 cm 32.2 kg/m2 27446.1 9 g 97.3 [degF] 89 /min 24 /min 94 % 94 % 130 mm[Hg] 90 mm[Hg] Sejal Stringer RN [facility] [email or web address] [facility] 5 11:53:11 Date Recorded Body height Body mass index (BMI) Body weight Body temperature Heart rate Respiratory rate Oxygen saturation Oxygen saturation in Arterial blood by Pulse oximetry Systolic blood pressure Diastolic blood pressure Provider Name and Address Organization Details Last Updated DateTime 4 175.26 cm 34.7 kg/m2 879449. 61 g 97.3 [degF] 77 /min 20 /min 99 % 99 % 150 mm[Hg] 11 mm[Hg] ADRIEN Person [facility] [email or web address] [facility] 4 11:15:49 Date Recorded Body height Body mass index (BMI) Body weight Body temperature Heart rate Respiratory rate Oxygen saturation Oxygen saturation in Arterial blood by Pulse oximetry Systolic blood pressure Diastolic blood pressure Provider Name and Address Organization Details Last Updated DateTime 4 175.26 cm 32.9 kg/m2 915430. 31 g 97.2 [degF] 101 /min 20 /min 98 % 98 % 150 mm[Hg] 100 mm[Hg] [email or web address] [facility] 4 11:02:38 Social History Question Answer Notes LastModified by Organizat ion Details LastModified Time Tobacco Smoking Status Current Every Day Smoker Not Available [facility] 07/18/2022 13:35:40 Do You Have An Advance Directive? No MIGRATION.71809 [id number] Information not available 07/18/2022 Are You Blind Or Do You Have Difficulty Seeing? No MIGRATION.17446 69305 Information not available 07/18/2022 Is Blood Transfusion Acceptable In An Emergency? Yes Information not available 11/02/2022 What Is Your Level Of Caffeine Consumption? Occasional MIGRATION.64989 00420 Information not available 07/18/2022 How Much Tobacco Do You Chew? None MIGRATION.90846 87004 Information not available 07/18/2022 What Is Your Code Status? Full Code MIGRATION.52806 [id number] Information not available 07/18/2022 In The 14 Days Before Symptom Onset, Have You Had Close Contact With A Laboratory-confi rmed COVID-19 While That Case Was Ill? No MIGRATION.78298 19060 Information not available 07/18/2022 In The 14 Days Before Symptom Onset, Have You Had Close Contact With A Person Who Is Under Investigation For COVID-19 While That Person Was Ill? No MIGRATION.36407 77059 Information not available 07/18/2022 Are You Deaf Or Do You Have Serious Difficulty Hearing? No MIGRATION.92621 65359 Information not available 07/18/2022 What Type Of Diet Are You Following? REGULAR MIGRATION.14178 77936 Information not available 07/18/2022 Which Illicit Or Recreational Drugs Have You Used? None MIGRATION.11695 79286 Information not available 07/18/2022 How Many Days [...] To Your Family Or Social Situation? No MIGRATION.99456 15103 Information not available 07/18/2022 What Is The Fluoride Status Of Your Home? Unknown MIGRATION.85662 12772 Information not available 07/18/2022 Are There Any Guns Present In Your Home? No MIGRATION.14397 35261 Information not available 07/18/2022 Do You Use Insect Repellent Routinely? Yes MIGRATION.04259 10866 Information not available 07/18/2022 Where Do You Live? [place] MIGRATION.55334 68975 Information not available 07/18/2022 Do You Have A Medical Power Of Cash Sales Audit Clerk? No MIGRATION.98907 25202 Information not available 07/18/2022 What Was The Date Of Your Most Recent Tobacco Screening? 11/01/2021 MIGRATION.95111 61848 Information not available 07/18/2022 How Many Children Do You Have? 0 Information not available 08/28/2023 Have You Ever Been Counseled For Unhealthy Alcohol Use? No MIGRATION.92199 52561 Information not available 07/18/2022 Do You Have Any Pets? Yes Information not available 02/22/2023 What Is Your Relationship Status? MIGRATION.30063 99490 Information not available 07/18/2022 Do You Use Your Seat Belt Or Car Seat Routinely? Yes MIGRATION.79803 78289 Information not available 07/18/2022 Do You Have Smoke And Carbon Monoxide Detectors In Your Home? Yes MIGRATION.17001 42404 Information not available 07/18/2022 At What Age Did You Start Smoking Tobacco? 36 Information not available 08/28/2023 Are You Passively Exposed To Smoke? No MIGRATION.65884 08901 Information not available 07/18/2022 Are There Any Smokers In Your House? Yes MIGRATION.36097 46328 Information not available 07/18/2022 How Much Tobacco Do You Smoke? 0.5 PPD MIGRATION.87301 83655 Information not available 07/18/2022 Do You Participate In Social Media? No Information not available 11/02/2022 What Types Of Sporting Activities Do You Participate In? Golf,gym Information not available 11/02/2022 Do You Use Sunscreen Routinely? Yes MIGRATION.31628 84077 Information not available 07/18/2022 Have You Recently Traveled Abroad? No MIGRATION.29213 35416 Information not available 07/18/2022 Do You Have Difficulty Walking Or Climbing Stairs? No MIGRATION.59359 04150 Information not available 07/18/2022 Do You Have Any Dietary Restrictions? No MIGRATION.80135 86079 Information not available 07/18/2022 Sex: Unknown Functional Status Question Answer Note LastModified by Organizat ion Details LastModified Time Do you or have you ever used smokeless tobacco? Never used smokeless tobacco MIGRATION.62548 91430 Information not available 07/18/2022 Are you currently employed? No Information not available 08/28/2023 Do you have transportation difficulties? No MIGRATION.10993 22766 Information not available 07/18/2022 Are you able to care for yourself? Yes MIGRATION.71417 30998 Information not available 07/18/2022 Do you have difficulty dressing or bathing? No MIGRATION.68077 37469 Information not available 07/18/2022 Do you or have you ever used e-cigarettes or vape? Never used electronic cigarettes MIGRATION.21205 73766 Information not available 07/18/2022 What is your exercise level? Occasional Information not available 08/28/2023 Do you use any illicit or recreational drugs? No [id number] Information not available 07/18/2022 Do you or have you ever used any other forms of tobacco or nicotine? No [id number] Information not available 07/18/2022 What is your level of alcohol consumption? Occasional socially [id number] Information not available 07/18/2022 Are you able to walk? YESWOREST MIGRATION.[id number] Information not available 07/18/2022 Do you have difficulty doing errands alone? No MIGRATION.[id number] Information not available 07/18/2022 What is your occupation? retired [id number].[id number] Information not available 07/18/2022 Mental Status Question Answer Note LastModified by Organizat ion Details LastModified Time Do you feel stressed (tense, restless, nervous, or anxious, or unable to sleep at night)? [id number] Information not available 07/18/2022 Do you have difficulty concentrating, remembering or making decisions? No [id number] Information not available 07/18/2022 Family History Relationship Description Onset Age of this Age Resolved Age Notes LastModified by Organization Details LastModified Time Brother Malignant neoplasm of lung 58 [id number] Not available 07/18/2022 13:35:46 Father Hypertensive disorder [id number] Not available 07/18/2022 13:35:46 Mother Hypertensive disorder [id number] Not available 07/18/2022 13:35:46 Mother Diabetes mellitus [id number] Not available 07/18/2022 13:35:46 Medical History Condition Response SEIZURES/EPILEPSY Y HEADACHES/MIGRAINES Y DIZZINESS Y DIABETES, TYPE Y HEARTBURN / REFLUX Y HYPERTENSION Y COPD Y HIGH CHOLESTEROL / HYPERLIPIDEMIA Y PVD Y OBESITY Y ANXIETY DISORDER Y GERD/NAUSEA Y ASTHMA Y DEPRESSION (INCLUDING POST ) Y HAVE YOU BEEN HOSPITALIZED OR SEEN IN [facility] IN THE PAST YEAR ? Y Immunizations Vaccine Type Date Status Note Provider [facility] e and Address Organization Details Recorded Time Respiratory syncytial virus (RSV) MAB, unspecified 3 completed Sejal Singh, MARIA EUGENIA [address] [facility] [address], [place], [address], [facility] [employer] [facility] 04/05/2023 07:15:54 RSV, recombinant, protein subunit RSVpreF, adjuvant reconstituted, 0.5 mL, PF 3 completed Sejal Stringer RN [facility], [employer] [facility] [employer] 09/29/2024 11:47:46 Influenza, split virus, quadrivalent, PF 3 completed Sejal Stringer RN null, [employer] [facility] [email or web address] [facility] 02/22/2023 12:11:43 pneumococcal polysaccharide PPV23 3 completed OLIVA Seth, [place] - [facility] 04/16/2023 12:04:02 SARS-COV-2 (COVID-19) vaccine, UNSPECIFIED 1 completed Not Available On license of [facility] 07/18/2022 13:38:27 SARS-COV-2 (COVID-19) vaccine, UNSPECIFIED 1 completed Not Available [facility] 07/18/2022 13:38:27 Influenza, split virus, trivalent, preservative 5 completed Not Available On license of [facility] 07/18/2022 13:38:27 Influenza, split virus, trivalent, preservative 4 completed Not Available On license of [facility] 07/18/2022 13:38:27 pneumococcal polysaccharide PPV23 4 completed Not Available On license of [facility] 07/18/2022 13:38:28 Tdap 7 completed Not Available On license of [facility] 07/18/2022 13:38:28 Influenza, split virus, quadrivalent, PF 7 completed Not Available On license of [facility] 07/18/2022 13:38:28 Past Encounters Encounter ID Performer Location Encounter Start Date Encounter Closed Date Diagnosis/Indication Diagnosis SNOMED-CT Code Diagnosis ICD10 Code Diagnosis Note [id number] Haim Colunga MD [address] [address] 08/09/2020 00:00:00 08/09/2020 11:46:48 [id number] Haim Colunga MD [address] [address] 08/16/2020 00:00:00 08/16/2020 10:45:14 [id number] Haim Colunga MD [address] [address] 09/13/2020 00:00:00 09/13/2020 16:01:41 [id number] _ATHN_MIGR ATION_1 _ATHENA_M IGRATION_ DEFAULT_1 _1 , 12/14/2020 00:00:00 12/14/2020 12:45:20 [id number] Haim Colunga MD [address] [address] 04/11/2021 00:00:00 04/11/2021 10:45:11 [id number] Haim Colunga MD [address] [address] 06/20/2021 00:00:00 06/20/2021 15:56:02 [id number] Haim Colunga MD [address] [address] 11/02/2021 00:00:00 11/02/2021 12:13:31 [id number] Sejal Singh NP [address] [address] 01/02/2022 00:00:00 01/02/2022 11:04:31 [id number] Haim Colunga MD [address] [address] 04/24/2022 00:00:00 04/24/2022 13:02:26 [id number] Cecilio Sanchez MD [facility] [place] [address] [place] [address] 08/15/2022 14:39:18 08/15/2022 14:57:12 Asymmetrical sensorineural hearing loss 254207221 H90.5 Otalgia of left ear 1010 389644 H92.02 [id number] Sejal Singh NP [address] [address] 11/02/2022 08:45:43 11/02/2022 09:23:27 Otalgia of left ear 0615584824 H92.02 FU with ENT Daniel Hyperlipidemia 43320749 E78.5 Lipid, BMP, Hepatic.Ze tia 10 mgRosuvast atin 40 mg po nightly. Hypertensive disorder 38 508590 I10 ASA 81 mg po daily.Saray nopril 5 mg po daily.Meto prolol tartrate 25 mg po daily. Chronic ob structive pulmonary disease 78577614 J44.9 Breztri Nocturia 229248165 R35.1 Osteoarthritis 588716616 M19.90 Celecoxib. , flexeril duloxetine from dr. thakkar. Gastroesop hageal reflux disease 155230646 K21.9 lansoprazo le [id number] Haim Colunga MD [address] [address] 01/22/2023 09:21:53 01/22/2023 10:02:05 Dizziness of unknown cause 396918563 R42 Vertigo 152819805 R42 Hypertensive disorder 38 153260 I10 Hyperlipidemia 20675517 E78.5 Hypertriglyceridemia 302 023456 E78.2 Contusion of left chest wall 6187340425 4257398 S20.212A Lt Mass of chest wall 29211 4000 R22.2 Lt Obesity 709289393 E66.9 [id number] Sejal Singh NP [address] [address] 02/22/2023 09:49:08 02/22/2023 10:55:42 Prediabetes 400952574 R73.03 A1C, BMP, urine microalbum in.Metform in ER 500 mg po daily Hypertriglyceridemia 302 454487 E78.2 Lipid pane. Trigs were 400s. Administra tion of influenza vaccine 36441151 Z23 Post-disch arge follow-up 827006047 Z09 No further pneumonia symptoms (although xray chest did not confirm pneumonia) . Likely COPD exacerbati on.AXEL non compliant with CPAP. Obstructiv e sleep apnea syndrome 47367050 G47.33 Needs to wear CPAP [id number] Haim Colunga MD [address] [address] 04/02/2023 15:47:14 04/02/2023 16:20:29 Thoracic back pain 761353023 M54.6 Low back pain 090138341 M54.50 History of lumbar fusion 7831409187 9106 Z98.1 Obesity 554129331 E66.9 Polyarthropathy 82080905 M13.0 [id number] Haim Colunga MD [address] [address] 04/16/2023 11:26:28 04/16/2023 11:58:09 Thoracic back pain 422667505 M54.6 Low back pain 446018870 M54.50 History of lumbar fusion 7966764599 9106 Z98.1 Polyarthropathy 45540221 M13.0 Obesity 958660331 E66.9 Degenerati on of thoracolumbar intervertebral disc 08866290 M51.35 Active or passive immunization 018611662 Z23 [id number] Haim Colunga MD [address] [address] 07/30/2023 09:43:13 07/30/2023 10:20:16 Degeneration of thoracolumbar intervertebral disc 95144828 M51.35 Thoracic back pain 09885 8004 M54.6 Low back pain 453753938 M54.50 History of lumbar fusion 1433548154 9106 Z98.1 Polyarthropathy 17746904 M13.0 Obesity 371245372 E66.9 Recurrent falls 31782850 2 R29.6 [id number] Haim Colunga MD [address] [address] 08/28/2023 14:00:03 08/28/2023 15:56:38 Peripheral arterial occlusive disease 458041984 I73.9 Essential hypertension 39781469 I10 Type 2 bette betes mellitus without complication 173570655 E11.9 Hypercholesterolemia 136 87328 E78.5 Bite of tick 921191063 W 57.XXXS [id number] Haim Colunga MD [address] [address] 01/02/2024 11:06:52 01/02/2024 11:46:19 Osteoarthritis 669723238 M19.90 Depressive disorder 6958 9007 F32.A Neuropathy 854312242 G62 .9 Gastroesop hageal reflux disease 307840922 K21.9 Hyperlipidemia 60248794 E78.5 Weakness o f bilateral lower limb 3439785154 78183 M62.81 Rupture of extensor tendon of thumb 722917644 S56.311D [id number] Haim Colunga MD [address] [address] 04/02/2024 10:41:40 04/02/2024 11:48:14 Adult health examination 465426484 Z00.00 Health maintenanc e reviewedDi scussed healthy diet, low carbs, sugars, fats, sodiumDisc ussed 150 minutes per week cardio Dehiscence of external surgical incision wound 8079689119 55898 T81.31XA Advised to call surgeon GAB Screening for malignant neoplasm of prostate 733486879 Z12.5 Hyperlipidemia 95653678 E78.5 Currently not taking ezetimibe, will re-initiat e pending lipid panel Type 2 bette betes mellitus without complication 868561056 E11.9 Thyroid di sorder screening 008544932 Z13.29 Gastroesop hageal reflux disease 109576275 K21.9 [id number] Haim Colunga MD [address] [address] 06/04/2024 11:45:22 06/04/2024 14:06:13 Essential hypertension 92806760 I10 Osteoarthritis 221190975 M19.90 Dysfunctio n of bilateral eustachian tubes 2302339452 072880 H69.93 Advised to add Zyrtec and flonaseAdv ised to utilize aquaphor in EAC Impairment of balance 38 8724994 R26.89 Advised to FU with Neuro and continue with planned cardio appt [id number] Haim Colunga MD [address] [address] 09/03/2024 09:50:54 09/03/2024 10:42:37 Impairment of balance 622399696 R26.89 Advised to FU with Neuro and continue with planned cardio appt Syncope 039918221 R55 With disorienta tion Scaly skin 273043548 R23 .4 zoryve sample given in clinic Hypercholesterolemia 136 22467 E78.5 Check labs as follows Well contr olled type 2 diabetes mellitus 105755117 E11.9 Check lab as below Essential hypertension 17275055 I10 Dry cough with lisinopril [id number] HELDER Segovia [facility] [address] [address] 09/29/2024 11:33:52 09/29/2024 12:12:34 Pruritic rash 20542014 L28.2 Diffuse errythema, crusted lesions to his [...] (MEDICARE REPLACEMENT/A DVANTAGE - HMO) Dann Johnson [id number] Dann Johnson 04/02/2024 1 [employer] (MEDICARE REPLACEMENT/A DVANTAGE - HMO) Dann Johnson [id number] Dann Johnson 06/04/2024 1 [facility] (MEDICARE REPLACEMENT/A DVANTAGE - PPO) [id number] Dann Johnson [id number] Dann Johnson 09/03/2024 1 [facility] (MEDICARE REPLACEMENT/A DVANTAGE - PPO) [id number] Dann Johnson [id number] Dann Johnson 09/29/2024 1 [facility] (MEDICARE REPLACEMENT/A DVANTAGE - PPO) [id number] Dann Johnson [id number] Dann Johnson Notes Date Note Type Note [...] All rheumatological factors are negative. Pamella Castano, FACILITIES CLERK [address] [facility], [place], [address], [facility] [employer] 01/02/2024 12:41:32 04/02/2024 text/html Lance Johnson is [...] unsure of dates.PSA: 2.50 (11/06/2022) Pamella Castano, FACILITIES CLERK [address] [facility], [place], [address], [facility] [employer] 04/02/2024 11:45:57 06/04/2024 text/html Lance Johnson is [...] PRN. Flu shot: 02/2023, believes had for OVID vaccines: 07/2020, 08/2020Tdap: 07/2016Shingles: recommendedPnuemonia: 03/2014, 03/2023RSV: 03/2023, believes had thisColonoscopy: has had 2, unsure of dates.PSA: 2.50 (11/06/2022) HELDER Segovia [address] [facility], [place], [address], [place] [facility] [employer] 06/04/2024 13:55:06 09/03/2024 text/html Lance Johnson is [...] of dates.PSA: 2.50 (11/06/2022) HELDER Segovia [address] [place] [address], [place], [address], [place] 09/03/2024 10:40:35 09/29/2024 text/html Dann Johnson is a 64 year old male patient here today for concerns of a rash This began as pustules on his back, these have now become large crusted lesion. He has diffuse itching, worse on his MARLON hands and feet and generalize errythema. Itching is worse at night. HELDER Segovia [address], [place], [address], [place] 09/29/2024 13:19:04
--- OUTSIDE RECORDS SUMMARY | 2024-10-29 02:35 | XMS_ITS | Clinical Summary ---
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
--- OUTSIDE RECORDS SUMMARY | 2024-10-29 02:36 | XMS_ITS | Clinical Summary ---
Author Organization [facility] Medical Office Building B Address [address] [place] [address] Care Team Providers Care Hospice Nurse Practitioner Name Role Phone Haim Colunga MD Primary Care Provider [phone] Allergies Active Allergy Reactions Criticality Noted Date [...] total) by mouth daily 10/23/19 19 Active dxrxw-3-kkz-e pa-fish oil (Fish OiL) 300-1,000 mg capsule,delay [...] Description 10/17/2024 2:45 PM CDT Office Visit [facility] at [address] [address] Nadir Hargrove NP Dermatitis (Primary [...] on file 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 Gender Identity Not on file Sexual Orientation [...] LAB BLOOD ORDERABLES Fi nal Result [facility] ([address] of Laboratories [place] [id number] * POCT lipid panel (02/27/2023 3:16 PM CDT) Cholesterol, POC 193 mg/dL HDL, POC 69 mg/dL Triglycerides, POC 179 mg/dL LDL Cholesterol POC 89 mg/dL Chol/HDL Ratio, POC 1.3 Non-HDL Cholesterol, POC 124 mg/dL Capillary blood 02/27/2023 3 :16 PM CDT us Jayda Egn NP POINT OF CARE TEST ORDERABLE S [...] Most Recently Relevant to Health Maintenance Insurance [facility] MEDICARE ADVANTAGE [employer] MEDICARE HMO Advance Directives For more information, please contact: [phone] * Full Code (Latest Code Status on File) Date Activated Date Inactivated Comments 06/21/2023 9:20 AM 06/22/2023 4:53 AM Care Teams Hospice Nurse Practitioner Relationship Specialty Start Date End Date Haim Colunga MD [address] [address] PCP - General Family Medicine 08/13/23
[2024-10-29 07:27] VITALS: BP 120/81; PULSE 88; RESP 16; TEMP 36.3; O2SAT 99
[2024-10-29] MEDS: LACTATED RINGERS 1,000 ML 150 ML IV CONT (07:36)
--- NOTE | 2024-10-29 08:08 | P.PNAN_ITS ---
Anes - Initial Pre Proc Eval Procedure: Operation Date: 10/29/24 08:30 Proposed Procedures p Colonoscopy - Heath Ingram MD Date/Time: 10/29/24 08:08 Surgeon: Heath Ingram MD Pre Op Diagnosis: Noninfective gastroenteritis and colitis, unspecif Patient Data Age: 64 Gender: M Height: 1.78 m Weight: 97 kg Last Vital Signs Temp 97.4 F L 10/29/24 07:27 Pulse 88 10/29/24 07:27 Resp 16 10/29/24 07:27 BP 120/81 10/29/24 07:27 Pulse Ox 99 10/29/24 07:27 O2 Del Method Room Air 10/29/24 07:27 Allergies Allergy/AdvReac Type Severity Reaction Status Date / Time Penicillins Allergy Unknown hives Verified 10/29/24 07:25 Home Medications ?Medication ?Instructions ?Recorded ?Confirmed ?Type albuterol sulfate 90 mcg/actuation 2 inh inhalation Q4H PRN Wheezing 02/10/23 10/29/24 History aerosol inhaler celecoxib 200 mg capsule 200 mg PO DAILY 02/10/23 10/29/24 History duloxetine 30 mg capsule,delayed 30 mg PO DAILY 02/10/23 10/29/24 History release ezetimibe 10 mg tablet 10 mg PO DAILY 02/10/23 10/29/24 History lansoprazole 30 mg capsule,delayed 30 mg PO DAILY 02/10/23 10/29/24 History release lisinopril 5 mg tablet 5 mg PO DAILY 02/10/23 10/29/24 History metoprolol tartrate 25 mg tablet 12.5 mg PO BID 02/10/23 10/29/24 History rosuvastatin 40 mg tablet 40 mg PO HS 02/10/23 10/29/24 History Patient hx anesthesia problems: none Family hx anesthesia problems: none Results Review: All pre-operative results and documents have been reviewed as part of the pre- operative evaluation. [facility] Past Medical History Medical History (Updated 10/15/24 @ 08:59 by Subha Augustine APRN) Recurrent syncope COPD (chronic obstructive pulmonary disease) Personal history of noncompliance with medical treatment and regimen Tobacco abuse counseling Nicotine dependence, cigarettes, with other nicotine-induced disorders Surgical History Surgical History (Updated 10/15/24 @ 08:59 by Subha Augustine APRN) History of bilateral hip replacements Family History Family History Mother Family history of arthritis Social History Social History Smoking packs per day: 0.5 Smoking cigarettes per day: 10.0 Years smoked: 35 Smoking pack-years: 17.50 Smoking status: Current every day smoker Tobacco type: cigarettes Second hand tobacco smoke exposure: No Alcohol intake: current Drinks per week: 10 Substance use: never Substance use type: does not use Lack of Transportation: No Lack of Food: Never True Current Housing: I Have Housing Concerned About Future Housing: No Difficulty Paying Gas/Electric Bills: No Difficulty Paying for Meds: No Currently Unemployed: No Education: Trade/Vocational Certificate Difficulty w/ Childcare or Family Care: No Living arrangements: with family Spiritual care concerns: No Anes - Eval Final PreProcedure Day of Procedure 10/29/24 08:08 Patient weight: obese Heart: regular rate and rhythm Lungs: clear to auscultation Airway: Mallampati scale class II Neurological: alert and oriented Last oral intake: >/= 8 hours ASA classification: III Emergent: no Anesthetic plan: proceed Anesthesia type and monitoring: general GIVS and standard monitoring Results Review: All pre-operative results and documents have been reviewed as part of the pre- operative evaluation. Informed Consent: The patient's anesthetic plan and its attendant risks and benefits were discussed with the patient/family/POA. Questions were solicited and answers provided to the satisfaction of the patient/family/POA.
[2024-10-29] MEDS: SIMETHICONE ORAL SUSPENSION 20 MG/0.3 ML 30 ML BOTTLE 0.6 ML IRRIGATION (08:36)
[2024-10-29 08:50] VITALS: BP 117/79; PULSE 82; RESP 18; O2SAT 95
[2024-10-29 09:00] VITALS: BP 123/83; PULSE 80; RESP 17; O2SAT 98
[2024-10-29 09:10] VITALS: BP 126/90; PULSE 76; RESP 18; O2SAT 98
--- NOTE | 2024-10-30 11:22 | PM.IMHP ---
H&P: HPI History of Present Illness Date/Time: 10/30/24 11:22 Chief Complaint: Screening colonoscopy Narrative: This is the patient's first colonoscopy. There are no GI symptoms and there is no family history of colorectal cancer. Review of Systems Review of Systems: All systems reviewed & are unremarkable except as noted in HPI and below PMFSH Past Medical History Medical History (Updated 10/15/24 @ 08:59 by Subha Augustine APRN) Recurrent syncope COPD (chronic obstructive pulmonary disease) Personal history of noncompliance with medical treatment and regimen Tobacco abuse counseling Nicotine dependence, cigarettes, with other nicotine-induced disorders Surgical History Surgical History (Updated 10/15/24 @ 08:59 by Subha Augustine APRN) History of bilateral hip replacements Family History Family History Mother Family history of arthritis Social History Social History Smoking packs per day: 0.5 Smoking cigarettes per day: 10.0 Years smoked: 35 Smoking pack-years: 17.50 Smoking status: Current every day smoker Tobacco type: cigarettes Second hand tobacco smoke exposure: No Alcohol intake: current Drinks per week: 10 Substance use: never Substance use type: does not use Lack of Transportation: No Lack of Food: Never True Current Housing: I Have Housing Concerned About Future Housing: No Difficulty Paying Gas/Electric Bills: No Difficulty Paying for Meds: No Currently Unemployed: No Education: Trade/Vocational Certificate Difficulty w/ Childcare or Family Care: No Living arrangements: with family Spiritual care concerns: No Meds Home Medications and Allergies Home Medications ?Medication ?Instructions ?Recorded ?Confirmed ?Type albuterol sulfate 90 mcg/actuation 2 inh inhalation Q4H PRN Wheezing 02/10/23 10/29/24 History aerosol inhaler celecoxib 200 mg capsule 200 mg PO DAILY 02/10/23 10/29/24 History duloxetine 30 mg capsule,delayed 30 mg PO DAILY 02/10/23 10/29/24 History release ezetimibe 10 mg tablet 10 mg PO DAILY 02/10/23 10/29/24 History lansoprazole 30 mg capsule,delayed 30 mg PO DAILY 02/10/23 10/29/24 History release lisinopril 5 mg tablet 5 mg PO DAILY 02/10/23 10/29/24 History metoprolol tartrate 25 mg tablet 12.5 mg PO BID 02/10/23 10/29/24 History rosuvastatin 40 mg tablet 40 mg PO HS 02/10/23 10/29/24 History Allergies Allergy/AdvReac Type Severity Reaction Status Date / Time Penicillins Allergy Unknown hives Verified 10/29/24 07:25 Exam Const: General: cooperative and healthy appearing Resp: Effort & Inspection: normal respiratory effort and able to speak in complete sentences Auscultation: clear to auscultation bilaterally Cardio: Rate: regular rate Rhythm: regular rhythm GI: Inspection: normal to inspection GI Palp: No No hepatosplenomegaly present Auscultation: normal bowel sounds Rectal Exam: deferred Skin: General skin exam: normal color Psych: Appearance: grossly normal Mental Status: mental status grossly normal Assessment and Plan Assessment and plan (1) History of colon polyps: Code(s): Z86.0100 - Personal history of colon polyps, unspecified Status: Acute Assessment and Plan: The patient is deemed a good candidate for the procedure. Consent signed. Will proceed.
== END 2024-10-29 09:17 | disposition home or self-care (01) ==
PROVIDERS: Visit Provider Internal Medicine Gastroenterology
PROC: 0DJD8ZZ Inspection of Lower Intestinal Tract, Via Natural or Artificial Opening Endoscopic (ICD-10-PCS; CPT 45378; principal; 2024-10-29 08:30)
DX: Z12.11 Encounter for screening for malignant neoplasm of colon (principal); K64.8 Other hemorrhoids; J44.9 Chronic obstructive pulmonary disease, unspecified; F17.290 Nicotine dependence, other tobacco product, uncomplicated; E66.9 Obesity, unspecified; Z68.30 Body mass index [BMI] 30.0-30.9, adult; Z79.51 Long term (current) use of inhaled steroids; Z79.1 Long term (current) use of non-steroidal anti-inflammatories (NSAID); Z98.890 Other specified postprocedural states; Z86.0100 Personal history of colon polyps, unspecified
CPT/HCPCS: G0105; J2003; J2704; J7120